=== PATIENT | female | born 1945 | race Caucasian/White ===

== ENCOUNTER 2020-04-17 10:18 | Outpatient (RCR) | payer MEDICARE, SELFPAY | END 2020-04-21 23:59 | disposition home or self-care (01) | LOC: SPT 10:18 | PROVIDERS: PCP Physician Assistant; Referring Provider Physician Assistant; Visit Provider Physician Assistant | DX: M54.2 Cervicalgia (principal) | CPT/HCPCS: 97161 ==

== ENCOUNTER 2020-04-22 06:00 | Outpatient (RCR) | payer MEDICARE, SELFPAY | END 2020-05-22 23:59 | disposition home or self-care (01) | LOC: SPT 06:00 | PROVIDERS: PCP Physician Assistant; Referring Provider Physician Assistant; Visit Provider Physician Assistant | DX: M54.2 Cervicalgia (principal) | CPT/HCPCS: 97110 ==

== ENCOUNTER → 2020-06-05 09:51 | Outpatient (BNVA) | payer MEDICARE, SELFPAY | PROVIDERS: PCP Physician Assistant; Visit Provider Licensed Practical Nurse | DX: M47.812 Spondylosis without myelopathy or radiculopathy, cervical region (principal); R42 Dizziness and giddiness; E53.8 Deficiency of other specified B group vitamins | CPT/HCPCS: 99213 ==

== ENCOUNTER 2020-07-27 09:22 | Outpatient (CLI) | payer MEDICARE, SELFPAY ==
[2020-07-27 09:51] VITALS: BMI 29.9
--- NOTE | 2020-07-27 09:57 | USCV_ITS ---
AdanstephanieClemencia rea Age: 74 Gender: F : 1945 Exam Date: 07/27/2020 09:50 Ordering Phys: Brittany Ovalles Technologist: Soto Evans [place] [facility] [place]: MURMUR BP: 125 / 80 HR: 67 Rhythm: Sinus Technical Quality: MEASUREMENTS (Male / Female) Normal Values 2D ECHO LV Diastolic Diameter PLAX 3.9 cm 4.2 - 5.9 / 3.9 - 5.3 cm LV Systolic Diameter PLAX 2.5 cm IVS Diastolic Thickness 1.6 cm 0.6 - 1.0 / 0.6 - 0.9 cm IVS Systolic Thickness 1.6 cm LVPW Diastolic Thickness 1.3 cm 0.6 - 1.0 / 0.6 - 0.9 cm LVPW Systolic Thickness 1.6 cm LVOT Diameter 2.3 cm LV Ejection Fraction 2D Teich 64.5 % LV Ejection Fraction MOD 2C 68.9 % LV Ejection Fraction 2C AL 70.1 % LA Diameter 5.1 cm LA Width 4.6 cm LA Height 5.5 cm RA Width 3.3 cm RA Height 4.0 cm Aorta at Sinotubular Diameter 2.5 cm M-MODE LV Diastolic Diameter MM 4.3 cm 4.2 - 5.9 / 3.9 - 5.3 cm LV Systolic Diameter MM 2.5 cm LV Ejection Fraction MM Teich 73.9 % IVS Diastolic Thickness MM 1.2 cm 0.6 - 1.0 / 0.6 - 0.9 cm IVS Systolic Thickness MM 2.0 cm LVPW Diastolic Thickness MM 1.6 cm 0.6 - 1.0 / 0.6 - 0.9 cm LVPW Systolic Thickness MM 2.2 cm RV Diastolic Diameter MM 1.3 cm Aortic Annulus Diameter 3.4 cm LA Ao Ratio MM 1.5 MV E Point Septal Separation 0.6 cm DOPPLER AV Peak Velocity 215.0 cm/s LVOT Peak Velocity 132.0 cm/s AV Area Cont Eq vti 3.0 cm squared AV Area Cont Eq pk 2.5 cm squared MV Area PHT 5.0 cm squared Mitral E to A Ratio 0.8 MV E' Velocity 34.5 cm/s Mitral E to MV E' Ratio 8.8 Mitral E to LV E' Lateral Ratio 6.7 Mitral E to LV E' Septal Ratio 13.0 TR Peak Velocity 212.7 cm/s TR Peak Gradient 18.1 mmHg TV Peak E Velocity 84.0 cm/s Right Atrial Pressure 3.0 mmHg Pulmonary Artery Systolic Pressu 21.1 mmHg PV Peak Velocity 130.0 cm/s FINDINGS Left Ventricle Normal left ventricular cavity size. Normal left ventricular systolic function. No regional wall motion abnormalities. Left ventricular ejection fraction is estimated at 65 %. Grade I/IV diastolic dysfunction (abnormal relaxation filling pattern), normal to mildly elevated filling pressures. Right Ventricle The right ventricle is normal in size and function. Right Atrium The right atrium is normal in size. Left Atrium Moderately increased left atrial size. Mitral Valve Severely thickened mitral valve. Severe mitral annular calcification. No mitral valve stenosis. Mild-moderate mitral valve regurgitation. Aortic Valve Structurally normal aortic valve without significant sclerosis or stenosis. There is no aortic regurgitation. Tricuspid Valve Mild tricuspid valve regurgitation. Pulmonic Valve Structurally normal pulmonic valve without significant stenosis. There is no pulmonic regurgitation. Pericardium Normal pericardium without effusion. Aorta Normal ascending aorta dimension. CONCLUSIONS 1-Normal left ventricular cavity size. Normal left ventricular systolic function. No regional wall motion abnormalities. Left ventricular ejection fraction is estimated at 65 %. Grade I/IV diastolic dysfunction (abnormal relaxation filling pattern), normal to mildly elevated filling pressures. 2-Severely thickened mitral valve. Severe mitral annular calcification. No mitral valve stenosis. Mild-moderate mitral valve regurgitation. 3-Structurally normal aortic valve without significant sclerosis or stenosis. There is no aortic regurgitation. 4-There is no pericardial effusion. 5-Pulmonary artery systolic pressure is within normal limits. 6-Right atrial pressure is around 5 mm of mercury. 7-No significant change since the prior echocardiogram study of 08/24/2019. Lourdes Ramachandran MD (Electronically Signed) Final Date: 27 July 2020 19:11 S
--- NOTE | 2020-07-27 10:04 | ECG_ITS ---
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 Interpretive Statements NAME OF STUDY: LEXISCAN SESTAMIBI STRESS TEST INDICATION: [Dyspnea on Exertion] Procedure: At the baseline, the blood pressure was 219/100 mmHg, heart rate of 65 bpm. The electrocardiogram showed normal sinus rhythm with normal axis with normal ST and T's. The Lexiscan was infused over a period of 20 seconds. A total of 0.4 mg of Lexiscan was infused. The stress phase was continued for a total of 5 minutes. Heart rate at the end of stress phase was 81 bpm, with blood pressure 188/93 mmHg. The EKG at the peak infusion revealed sinus rhythm with no significant ST T wave changes. Sestamibi was injected 20 seconds after the Lexiscan was infused. Blood pressure at the end of recovery phase was 189/93 mmHg, with a heart rate of 78 bpm. Conclusion: 1. Normal EKG response to Lexiscan infusion. 2. No Lexiscan induced chest pain or cardiac arrhythmia. 3. Baseline high blood pressure that subsequently decreased after Lexiscan infusion, and normal heart rate response. 4. Sestamibi/sestamibi perfusion scan pending; see separate report. Electronically Signed On 07-31-2020 9:53:29 BILINGUAL RESEARCH INTERVIEWER by Robin Torrez M.D. [id number]
--- NOTE | 2020-07-27 10:05 | NMCV_ITS ---
NM radha perf SPECT r/s* [id number] Clemencia Garrison Age: 74 Gender: F : 1945 Exam Date: 07/27/2020 10:35 Ordering Phys: Brittany Ovalles Technologist: JED Chance Exam Location: [facility] Indications: DYSPNEA ON EXERTION STRESS TEST Please see separate stress test report in [facility] for full findings IMAGE PROTOCOL Rest/Stress 1 Exercise Day Radiopharmaceutical Dose (mCi) Administration Site Administered by Rest: Tc-99m 10.7 IV JED Chance Sestamibi Stress:Tc-99m 33.0 IV Sestamibi Rest: 27-Jul-2020 60 Discovery 630 Stress: 27-Jul-2020 30 Discovery 630 0.4mg Lexiscan. Images obtained in supine and prone position. SPECT RESULTS Technical Quality: Excellent Raw Data Analysis: Normal Image Corrections: No attenuation or motion correction applied Summed Stress Score: 0 Summed Rest Score: 2 Summed Difference Score: 0 PERFUSION FINDINGS SPECT images demonstrate homogeneous tracer distribution throughout the myocardium. FUNCTIONAL RESULTS (calculated via Gated SPECT) Stress Image LV EF (%): 72 Stress EDV (mL):90 TID: 0.93 Stress ESV (mL):25 FUNCTIONAL FINDINGS: There is normal left ventricular systolic function. IMPRESSIONS Myocardial perfusion imaging is normal. LV systolic function is normal with EF of 72% Robin Torrez MD (Electronically Signed) Final Date: 27 July 2020 17:23 S
[2020-07-27] MEDS: regadenoson 0.4 Mg/5 ml Syringe IVP (11:20)
--- NOTE | 2020-07-27 11:20 | SUR.PREOP ---
Patient reports no pain or discomfort prior to the start of the procedure.
[2020-07-27 11:35] VITALS: BP 189/93; PULSE 73
== END 2020-07-27 09:23 | disposition home or self-care (01) ==
LOC: CDL 09:24
PROVIDERS: PCP Physician Assistant; Visit Provider Physician Assistant
DX: R06.00 Dyspnea, unspecified (principal); R01.1 Cardiac murmur, unspecified; I05.9 Rheumatic mitral valve disease, unspecified
CPT/HCPCS: 78452; 93017; 93306; A9500; J2785

== ENCOUNTER 2021-03-11 12:46 | Emergency (ER) | payer MEDICARE, MEDICAID, SELFPAY ==
[2021-03-11 13:15] VITALS: BP 151/81; PULSE 70; RESP 18; TEMP 36.8; O2SAT 97; BMI 30.7
--- NOTE | 2021-03-11 13:26 | XRR_ITS ---
PROCEDURE INFORMATION: Exam: XR Chest Exam date and time: 03/11/2021 1:26 PM Age: 75 years old Clinical indication: Pain; Chest pressure; Additional info: Cp TECHNIQUE: Imaging protocol: XR of the chest. Views: 1 view. COMPARISON: CR Chest 1 [place] [id number] 08/29/2019 2:36 PM FINDINGS: Lungs: No consolidative pulmonary infiltrates are noted. Pleural spaces: Unremarkable. No pleural effusion. No pneumothorax. Heart/Mediastinum: No cardiomegaly. Vasculature: Tortuous, atherosclerotic thoracic aorta. Bones/joints: Unremarkable. XR/XR chest 1V portable [id number] IMPRESSION: 1. No acute abnormality demonstrated. 2. There is no interval change from the prior examination.
--- NOTE | 2021-03-11 13:27 | ECG_ITS ---
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 Measurements Intervals [place] Rate: 69 P: 35 [place]: 171 QRS: -22 QRSD: 106 T: 15 QT: 405 QTc: 435 Interpretive Statements SINUS RHYTHM BORDERLINE LEFT AXIS DEVIATION [QRS AXIS < -20] Compared to ECG 08/29/2019 14:38:50 No significant changes Electronically Signed On 03-11-2021 19:10:41 CDT by Sabrina Mix M.D. [email or web address]/[email or web address]/[id number] f
[2021-03-11 14:36] VITALS: BP 211/102; PULSE 72; RESP 15; O2SAT 97
[2021-03-11 14:49] LABS: Basophils # 0.1 10^3/uL (0.0-0.1); Basophils % 0.8 %; Eosinophils # 0.2 10^3/uL (0.0-0.8); Eosinophils % 2.3 %; Hematocrit 43.4 % (37.0-47.0); Hemoglobin 14.4 g/dL (11.5-15.3); Lymphocytes # 1.9 10^3/uL (0.8-4.8); Lymphocytes % 20.6 %; Mean Corpuscular HGB Conc 33.2 g/dL (30.0-36.0); Mean Corpuscular Hemoglobin 30.8 pg (28.0-34.0); Mean Corpuscular Volume 92.9 fL (81-99); Mean Platelet Volume 11.8 fL (7.4-10.4); Monocytes # 0.6 10^3/uL (0.2-0.9); Monocytes % 6.4 %; Neutrophils # 6.36 10^3/uL (1.8-7.7); Neutrophils % 69.7 %; Nucleated Red Blood Cells % 0 %; Platelet Count 277 10^3/cmm (130-400); Red Blood Count 4.67 10^6/uL (4.1-5.3); Red Cell Distribution Width 14.5 % (12.1-15.1); White Blood Count 9.1 10^3/uL (4.0-10.0)
[2021-03-11 15:05] LABS: Troponin(5th) Baseline 12 ng/L (0-10)
[2021-03-11 15:14] LABS: Alanine Aminotransferase 13 U/L (0-33); Albumin Level 4.4 g/dL (3.5-5.2); Alkaline Phosphatase 73 IU/L (35-105); Anion Gap 11.6 (5-19); Aspartate Amino Transferase 16 U/L (0-32); Blood Urea Nitrogen 21 mg/dL (8-23); Calcium 8.9 mg/dL (8.5-10.5); Carbon Dioxide 26 mmol/L (22-29); Chloride 107 mmol/L (98-107); Creatinine Clr Calc Pharmacy 63.0012; Globulin 2.4 g/dL (1.3-4.6); Glucose 86 mg/dL (65-115); Lipase 26 U/L (13-60); NT Pro B Type Natriuretic Pept 326 pg/mL (0-450); Osmolality Calculated 292 mOsm/kg (285-295); Potassium 4.6 mmol/L (3.5-5.1); Sodium 140 mmol/L (136-145); Total Bilirubin 0.4 mg/dL (0.15-1.2); Total Protein 6.8 g/dL (6.6-8.7)
[2021-03-11 15:16] LABS: INR 1.05 (0.8-1.2)
--- NOTE | 2021-03-11 15:27 | ECG_ITS ---
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 Measurements Intervals [place] Rate: 66 P: 40 [place]: 185 QRS: -24 QRSD: 101 T: 24 QT: 415 QTc: 435 Interpretive Statements SINUS RHYTHM BORDERLINE LEFT AXIS DEVIATION [QRS AXIS < -20] INTERPRETATION BASED ON A DEFAULT AGE OF 40 YEARS Compared to ECG 08/29/2019 14:38:50 No significant changes Electronically Signed On 03-11-2021 19:25:08 CDT by Sabrina Mix M.D. [email or web address]/store/NU/[id number] f
--- NOTE | 2021-03-11 17:02 | ED_ITS ---
HPI - Chest Pain General: Chief Complaint: Chest Pain Stated Complaint: CHEST TIGHT DIZZY Time Seen by Provider: 03/11/21 13:26 Source: patient Mode of arrival: ambulatory Limitations: no limitations History of Present Illness: HPI narrative: This is a 75 year old female who presents to the ED with chest pain that she describes as tightness, radiating to her neck and her shoulders. Symptoms started yesterday and she says that the pain prevented her from sleeping, especially the neck pain. Because her symptoms persisted till today she is here to be evaluated. MD complaint: chest pain Onset (ago): day(s) (1) Timing of current episode: constant Prior episodes: No Onset: during rest Pain location: substernal Pain radiation: neck, left shoulder and right shoulder Severity: moderate Quality: tightness Relieving factors: nothing Exacerbating factors: nothing Associated symptoms: Deny abdominal pain, diaphoresis, dyspnea, fever(s), leg edema, nausea, palpitations, sense of impending doom, syncope or vomiting Treatment prior to arrival: aspirin Review of Systems General: Reports: 10 or more systems reviewed and unremarkable except in HPI and below Const: Denies: fever(s) or diaphoresis Card: Denies: palpitations or syncope Resp: Denies: dyspnea GI: Denies: abdominal pain, nausea or vomiting PFSH ED PFSH: Medical History B12 deficiency CAD (coronary artery disease) Cervical osteoarthritis Dizziness of unknown etiology Dyslipidemia Essential hypertension Fatigue History of stroke NSTEMI (non-ST elevated myocardial infarction) Obesity Unstable angina Surgical History History of cataract surgery History of tubal ligation 1980 Family History Father Cancer Mother Cancer Brother Cancer Sister Cancer Social History Smoking and tobacco status: never smoked Alcohol intake: current Alcohol type: wine Household members: family Marital status: / Current occupational status: retired History of recent travel: No Physical Exam Const: COMMON NORMALS: no acute distress, average body habitus, patient oriented x3, no limitations, healthy appearing, alert and well nourished HENMT: COMMON NORMALS: normocephalic, atraumatic and moist oral mucous membranes HEAD & SCALP: normocephalic and atraumatic Neck/C-Spine: COMMON NORMALS: full ROM, supple, no meningeal signs, no JVD and No carotid bruits Chest: COMMONS NORMALS: normal inspection of the chest and normal palpation of entire chest wall Resp: COMMON NORMALS: normal respiratory effort, No retractions, No use of accessory muscles, clear to auscultation bilaterally and percussion normal AUSCULTATION: clear to auscultation bilaterally PERCUSSION: percussion normal Cardio: COMMON NORMALS: no JVD, regular rate, regular rhythm, S1 normal heart sound present, S2 normal heart sound present, No gallops present (Cardio), No clicks present (Cardio), No murmurs present (Cardio), No rub (Cardio) and Peripheral pulses 2+ throughout RATE: regular rate RHYTHM: regular rhythm HEART SOUNDS: S1 normal heart sound present and S2 normal heart sound present PERIPHERAL PULSES: Peripheral pulses 2+ throughout GI: COMMON NORMALS: Normal to inspection, nondistended, normoactive bowel sounds present, Soft to palpation, non-tender, No hepatosplenomegaly present, no masses and no bruits PALPATION: Yes Soft to palpation and Yes No hepatosplenomegaly present Extremity: COMMON NORMALS: normal to inspection, full ROM, capillary refill normal, no calf tenderness and no pedal edema Neuro: COMMON NORMALS: patient oriented x3 SENSORIUM/ORIENTATION: Yes alert MENINGEAL SIGNS: Yes no meningeal signs Course Reevaluation(s): Reevaluation #1: Discussed her lab and imaging findings with her. Unremarkable. Chest pain is unlikely to be cardiac in origin. We will discharge her home with no new orders. She voiced understanding and is in agreement with the plan Time: 17:26 Vital Signs: Vital signs: Vital Signs Temperature 98.2 F 03/11/21 13:15 Pulse Rate 79 03/11/21 17:49 Respiratory Rate 15 03/11/21 17:49 Blood Pressure 211/102 03/11/21 14:36 Pulse Oximetry 99 03/11/21 17:49 MDM - Chest Pain MDM Narrative: Medical decision making narrative: 75-year-old female patient who presents to the emergency department with chest pain. [facility] Heart score is 5 given a 17% risk of a major adverse cardiac event within the next 6 weeks. She however had a stress test done about 7 months ago and it was normal. 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 Lab Data: Labs: Lab Results 03/11/21 03/11/21 03/11/21 Range/Units 14:30 14:30 14:30 WBC 9.1 (4.0-10.0) 10^3/ uL RBC 4.67 (4.1-5.3) 10^6/u L Hgb 14.4 (11.5-15.3) g/dL Hct 43.4 (37.0-47.0) % MCV 92.9 (81-99) fL MCH 30.8 (28.0-34.0) pg MCHC 33.2 (30.0-36.0) g/dL RDW 14.5 (12.1-15.1) % Plt Count 277 (130-400) 10^3/c mm MPV 11.8 H (7.4-10.4) fL Neut % (Auto) 69.7 % Lymph % (Auto) 20.6 % [place] % (Auto) 6.4 % Eos % (Auto) 2.3 % Baso % (Auto) 0.8 % Neut # (Auto) 6.36 (1.8-7.7) 10^3/u L Lymph # (Auto) 1.9 (0.8-4.8) 10^3/u L [place] # (Auto) 0.6 (0.2-0.9) 10^3/u L Eos # (Auto) 0.2 (0.0-0.8) 10^3/u L Baso # (Auto) 0.1 (0.0-0.1) 10^3/u L Nucleated RBC % (a uto) 0 % Nucleated RBCs # 0.0 /100WBC PT (12.1-14.9) SECO NDS INR (0.8-1.2) Sodium 140 (136-145) mmol/L Potassium 4.6 (3.5-5.1) mmol/L Chloride 107 (98-107) mmol/L Carbon Dioxide 26 (22-29) mmol/L Anion Gap 11.6 (5-19) BUN 21 (8-23) mg/dL Creatinine 0.8 (0.5-0.9) mg/dL GFR Calculation Not Reportable Glucose 86 (65-115) mg/dL Calculated Osmolal ity 292 (285-295) mOsm/k g Calcium 8.9 (8.5-10.5) mg/dL Total Bilirubin 0.4 (0.15-1.2) mg/dL AST 16 (0-32) U/L ALT 13 (0-33) U/L Alkaline Phosphata se 73 (35-105) IU/L Troponin T Baselin e 12 H (0-10) ng/L Troponin T 120 Min zeinab (0-10) ng/L Delta Troponin T (0-10) ABS# NT-Pro-B Natriuret Pep 326 (0-450) pg/mL Total Protein 6.8 (6.6-8.7) g/dL Albumin 4.4 (3.5-5.2) g/dL Globulin 2.4 (1.3-4.6) g/dL Lipase 26 (13-60) U/L 03/11/21 03/11/21 Range/Units 14:56 16:30 WBC (4.0-10.0) 10^3/ uL RBC (4.1-5.3) 10^6/u L Hgb (11.5-15.3) g/dL Hct (37.0-47.0) % MCV (81-99) fL MCH (28.0-34.0) pg MCHC (30.0-36.0) g/dL RDW (12.1-15.1) % Plt Count (130-400) 10^3/c mm MPV (7.4-10.4) fL Neut % (Auto) % Lymph % (Auto) % [place] % (Auto) % Eos % (Auto) % Baso % (Auto) % Neut # (Auto) (1.8-7.7) 10^3/u L Lymph # (Auto) (0.8-4.8) 10^3/u L [place] # (Auto) (0.2-0.9) 10^3/u L Eos # (Auto) (0.0-0.8) 10^3/u L Baso # (Auto) (0.0-0.1) 10^3/u L Nucleated RBC % (a uto) % Nucleated RBCs # /100WBC PT 14.00 (12.1-14.9) SECO NDS INR 1.05 (0.8-1.2) Sodium (136-145) mmol/L Potassium (3.5-5.1) mmol/L Chloride (98-107) mmol/L Carbon Dioxide (22-29) mmol/L Anion Gap (5-19) BUN (8-23) mg/dL Creatinine (0.5-0.9) mg/dL GFR Calculation Glucose (65-115) mg/dL Calculated Osmolal ity (285-295) mOsm/k g Calcium (8.5-10.5) mg/dL Total Bilirubin (0.15-1.2) mg/dL AST (0-32) U/L ALT (0-33) U/L Alkaline Phosphata se (35-105) IU/L Troponin T Baselin e (0-10) ng/L Troponin T 120 Min zeinab 10.96 H (0-10) ng/L Delta Troponin T -1.04 L (0-10) ABS# NT-Pro-B Natriuret Pep (0-450) pg/mL Total Protein (6.6-8.7) g/dL Albumin (3.5-5.2) g/dL Globulin (1.3-4.6) g/dL Lipase (13-60) U/L Imaging Data^: CXR: Attestation: I personally reviewed and interpreted this imaging study as follows: Radiologist's impression: [address] [address]ZLqs ReportSigned Patient: Clemencia Garrison #: [id number]: [id number]#:[id number]/Sex: 75 / FADM Date: 03/11/21Loc: E RRoom/Bed:Attending Dr: Ordering Provider/Ordering MD: Rosamaria Merritt MD, [facility] [place] Date of Service: 03/11/21 Procedure(s): XR chest 1V portable [id number] Accession Number(s): [id number] Report Number: [id number] PROCEDURE INFORMATION: Exam: XR Chest Exam date and time: 03/11/2021 1:26 PM Age: 75 years old Clinical indication: Pain; Chest pressure; Additional info: Cp TECHNIQUE: Imaging protocol: XR of the chest. Views: 1 view. COMPARISON: CR Chest 1 [place] [id number] 08/29/2019 2:36 PM FINDINGS: Lungs: No consolidative pulmonary infiltrates are noted. Pleural spaces: Unremarkable. No pleural effusion. No pneumothorax. Heart/Mediastinum: No cardiomegaly. Vasculature: Tortuous, atherosclerotic thoracic aorta. Bones/joints: Unremarkable. XR/XR chest 1V portable [id number] IMPRESSION: 1. No acute abnormality demonstrated. 2. There is no interval change from the prior examination. Dictated By:Sami Rooney MDSigned By:Sami Rooney MDSigned Date/Time: 1614DD/ 1613 EKG Data^: EKG 1: Attestation: I personally reviewed and interpreted this EKG as follows: EKG interpretation date: 03/11/21 EKG interpretation time: 13:42 Prior EKG tracings: not available for review Interpretation: Sinus rhythm. Heart rate 69 bpm. Left axis deviation. No ST changes. EKG 2: Attestation: I personally reviewed and interpreted this EKG as follows: EKG interpretation date: 03/11/21 EKG interpretation time: 15:57 Prior EKG tracings: available for review Interpretation: Sinus rhythm. Heart rate 66 bpm. Left axis deviation. No ST changes. No significant change from earlier Discharge Plan Discharge Patient Disposition: Home Clinical Impression: Chest pain Qualifiers: Chest pain type: unspecified Qualified Code(s): R07.9 - Chest pain, unspecified Condition: Stable Prescriptions: Continued cyanocobalamin (vitamin B-12) 1,000 mcg capsule 1,000 mcg PO DAILY RF: 0 aspirin [Adult Aspirin Regimen] 81 mg tablet,delayed release (DR/EC) 81 mg PO DAILY Qty: 90 RF: 3 atorvastatin 40 mg tablet 20 mg PO .at bedtime Qty: 90 RF: 3 clopidogrel 75 mg tablet 75 mg PO DAILY Qty: 90 RF: 3 lisinopril 20 mg tablet 20 mg PO BID Qty: 180 RF: 3 metoprolol tartrate 25 mg tablet 25 mg PO BID Qty: 180 RF: 3 isosorbide mononitrate 20 mg tablet 20 mg PO DAILY Qty: 90 RF: 3 Discharge Orders: Discharge ED (Routine); Ordered 03/11/21 Ordered By: Rosamaria Merritt Referrals: Brittany Ovalles PA [Primary Care Provider] - 1-3 days Discharge Diet: Usual diet Discharge Activity: Increase activity as tolerated Patient Instructions: Chest Pain (ED) Activity Restrictions/Additional Instructions: Return for any new or worsening symptoms. Follow-up with your primary care provider within 3 days. Continue home medications. Coding Level of Care Code ED Residence Manager for Chg Fwd Exam Comprehensive
[2021-03-11 17:15] LABS: Troponin 5 2HR 10.96 ng/L (0-10)
[2021-03-11 17:19] LABS: Troponin 5 2HR Delta -1.04 ABS# (0-10)
[2021-03-11 17:49] VITALS: PULSE 79; RESP 15; O2SAT 99
== END 2021-03-11 17:53 | disposition home or self-care (01) ==
PROVIDERS: Emergency Provider Family Medicine; PCP Physician Assistant
DX: R07.9 Chest pain, unspecified (principal); Z79.02 Long term (current) use of antithrombotics/antiplatelets; Z79.82 Long term (current) use of aspirin; I25.10 Atherosclerotic heart disease of native coronary artery without angina pectoris; E78.5 Hyperlipidemia, unspecified; I10 Essential (primary) hypertension; Z86.73 Personal history of transient ischemic attack (TIA), and cerebral infarction without residual deficits; I25.2 Old myocardial infarction
CPT/HCPCS: 36415; 71045; 80053; 83690; 83880; 84484; 85025; 85610; 93005; 99283

== ENCOUNTER 2021-05-07 11:57 | Outpatient (CLI) | payer MEDICARE, MEDICAID, SELFPAY ==
[2021-05-07 12:05] VITALS: BP 139/86; BP 165/94; PULSE 61; PULSE 64; RESP 17; TEMP 36.8; TEMP 37.1; O2SAT 96; O2SAT 99; BMI 29.8
[2021-05-07 12:30] VITALS: BP 152/83; PULSE 50; RESP 17; O2SAT 99
[2021-05-07 13:31] VITALS: BP 165/94; PULSE 64; RESP 17; TEMP 36.8; O2SAT 99
== END 2021-05-07 11:58 | disposition home or self-care (01) ==
PROVIDERS: PCP Physician Assistant; Visit Provider Nurse Practitioner
DX: U07.1 COVID-19 (principal)
CPT/HCPCS: 96365

== ENCOUNTER 2021-06-07 11:14 | Outpatient (CLI) | payer MEDICARE, MEDICAID, SELFPAY ==
--- NOTE | 2021-06-07 | CT_ITS ---
WS: [id number] CT ABDOMEN PELVIS TECHNIQUE: Contrast-enhanced CT of the abdomen and pelvis with coronal and sagittal reformatted image s. CLINICAL INFORMATION: LLQ ABD PAIN COMPARISON: CT 1 17,017 DLP: 1122.[address] scans at [facility] use at least one of these dose optimization techniques: automated e xposure control; mA and/or kV adjustment per patient size (includes targeted exams where dose is matc hed to clinical indication); or iterative reconstruction. FINDINGS: Mild diffuse fatty infiltration of the liver. Multiple incidental hepatic cyst are unchanged. Stable renal cysts largest right lower pole unchanged. Lung bases are well aerated. Splenic granulomas. Norm al GE junction. Adrenal glands are normal. No hydronephrosis in either kidney. No abdominal lymphaden opathy. Aortic calcification. Normal caliber abdominal aorta. Normal sigmoid colon. Previously described colitis in the right ascending colon has resolved. No kelly dence of high-grade small or large bowel obstruction. No pelvic or inguinal lymphadenopathy. Mild dis c space narrowing L2-L3, L3-L4, L4-L5 with vacuum disc phenomenon. Lumbar scoliosis convex right. Endometrial thickening measuring 11 mm abnormal for a patient this age. Recommend further evaluation with hysteroscopy to assess for neoplasia. CT/CT abdomen pelvis w con* [id number] IMPRESSION: 1. Mild diffuse fatty infiltration of the liver. 2. Stable hepatic and renal cysts. 3. Previously described colitis has resolved. 4. Endometrial thickening measuring 11 mm abnormal for a patient this age. Rec ommend further evaluation with hysteroscopy to assess for neoplasia. 5. No evidence of small or large bowel obstruction. 6. Normal sigmoid colon. 7. No hydronephrosis in either kidney. 8. No other significant findings.
[2021-06-07] MEDS: iohexol 300 mg/mL 100 mL Btl IV (12:55)
[2021-06-07] MEDS: iohexol 300 mg/mL 50 mL Btl PO (12:56)
== END 2021-06-07 11:15 | disposition home or self-care (01) ==
PROVIDERS: PCP Physician Assistant; Visit Provider Physician Assistant
DX: R10.32 Left lower quadrant pain (principal); K76.0 Fatty (change of) liver, not elsewhere classified; K76.89 Other specified diseases of liver; Q61.02 Congenital multiple renal cysts; R93.89 Abnormal findings on diagnostic imaging of other specified body structures
CPT/HCPCS: 74177; Q9967

== ENCOUNTER 2021-07-27 18:57 | Emergency (ER) | payer MEDICARE, MEDICAID, SELFPAY ==
[2021-07-27 19:32] VITALS: BP 182/100; PULSE 91; RESP 20; TEMP 37; O2SAT 96; BMI 29.9
--- NOTE | 2021-07-27 19:51 | XRR_ITS ---
PROCEDURE INFORMATION: Exam: XR Chest Exam date and time: 07/27/2021 7:51 PM Age: 75 years old Clinical indication: Cough; Patient HX: Body aches all over; Additional info: Cough fever TECHNIQUE: Imaging protocol: XR of the chest. Views: 2 views. COMPARISON: CR XR chest 1V portable [id number] 03/11/2021 1:43 PM FINDINGS: Lungs: Unchanged hyperinflation with mild interstitial prominence/fibrosis. No consolidation. The pulmonary vascularity is within normal limits. Pleural spaces: Unremarkable. No pleural effusion. No pneumothorax. Heart/Mediastinum: Unremarkable. No cardiomegaly. Unchanged ectasia of the thoracic aorta. Bones/joints: Unremarkable. XR/XR chest 2V* [id number] IMPRESSION: No acute findings. Radiation Dose CTDIVOL = (mGy): DLP = (mGy-cm)
--- NOTE | 2021-07-27 21:37 | W.ED.URI ---
HPI - URI/Sore Throat General: Chief Complaint: Upper Respiratory Infection Stated Complaint: Headache\Coughing\ All over Ache Time Seen by Provider: 07/27/21 21:19 History of Present Illness: HPI Narrative: Patient comes in today with a 2-day history of headache, fever, and cough. Patient reports that her son was ill last week with similar illness. Patient appears mildly unwell but not toxic. Patient appears in no acute distress. Associated symptoms: Reports fever(s) and headache(s) Review of Systems General: Reports: 10 or more systems reviewed and unremarkable except in HPI and below Const: Reports: fever(s) Resp: Reports: non-productive cough Neuro: Reports: headache(s) PFSH ED PFSH: Medical History (Updated 07/27/21 @ 22:58 by WOLFGANG Hussein) B12 deficiency CAD (coronary artery disease) Cervical osteoarthritis Dizziness of unknown etiology Dyslipidemia Essential hypertension Fatigue History of stroke NSTEMI (non-ST elevated myocardial infarction) Obesity Unstable angina Surgical History History of cataract surgery History of tubal ligation 1979 Family History (Updated 07/16/21 @ 10:17 by Adele Melara RN) Father No problems noted. Mother No problems noted. Brother Diabetes Hypertension Colon cancer late 40's-early 50's Sister Colon cancer, Onset Age: 60 Denies family history of Ovarian cancer Clotting disorder Heart disease Hyperlipidemia Breast cancer Anesthesia complication Bleeding disorder Uterine cancer Thyroid condition Stroke Social History (Updated 07/16/21 @ 10:18 by Adele Melara RN) Smoking and tobacco status: never smoked Alcohol intake: current Alcohol intake frequency: holidays/special occasions only Alcohol type: hard liquor Physical Exam Const: COMMON NORMALS: no acute distress and patient oriented x3 GENERAL APPEARANCE: cooperative HENMT: COMMON NORMALS: normocephalic and Normal external nose present HEAD & SCALP: normal to inspection and normocephalic NOSE: Normal external nose present TYMPANIC MEMBRANE: TM abnormal TM laterality: bilateral bulging MOUTH: Normal oral and palatal mucosa present THROAT: posterior oropharynx abnormal erythema Eye: GENERAL EYE: appearance normal, both eyes and all related structures Neck/C-Spine: COMMON NORMALS: full ROM Lymph: LYMPHATIC: no lymphadenopathy noted Chest: COMMONS NORMALS: normal inspection of the chest Resp: COMMON NORMALS: normal respiratory effort EFFORT & INSPECTION: Yes able to speak in complete sentences AUSCULTATION: rhonchi Cardio: COMMON NORMALS: regular rate and regular rhythm RATE: regular rate RHYTHM: regular rhythm GI: COMMON NORMALS: non-tender : COMMON NORMALS: Yes no CVA tenderness BLADDER/KIDNEY EXAM: Yes no CVA tenderness Back/Pelvis: COMMON NORMALS: no CVA tenderness and thoracic and lumbar spine normal to inspection Extremity: COMMON NORMALS: normal to inspection Neuro: COMMON NORMALS: patient oriented x3 and moves all extremities Psych: COMMON NORMALS: mental status grossly normal and cooperative Skin: COMMON NORMALS: no rashes or lesions noted GENERAL SKIN EXAM: no rashes or lesions noted Course Vital Signs: Vital signs: Vital Signs Temperature 98.6 F 07/27/21 19:32 Pulse Rate 91 07/27/21 19:32 Respiratory Rate 18 07/27/21 23:30 Blood Pressure 166/93 07/27/21 23:08 Pulse Oximetry 97 07/27/21 23:08 MDM - URI/Sore Throat MDM Narrative: Medical decision making narrative: Patient came in today with complaints of headache, nasal congestion, and cough. Patient also has been having a fever of 101 1-102 at home. On exam lungs have rhonchi and end, patient has sinus tenderness, bilateral tympanic membranes are bulging. Patient moves neck without difficulty. Patient appears mildly unwell but not toxic. Patient appears no serious illness. Differential diagnosis includes rhinosinusitis, bronchitis, pneumonia, COVID-19. Chest x-ray was normal. COVID-19 test was negative. Patient's blood pressure was elevated with a systolic of 180, went ahead and gave her a hydrocodone and a clonidine to help with her pain and discomfort. Patient had resolution of headache and improvement of overall symptoms. We will continue the patient on doxycycline 100 mg twice a day for 10 days for acute bronchitis. Patient was also given a dose of dexamethasone in the ER. Patient reported understanding of care plan. I did write for 3 days worth of hydrocodone for breakthrough pain regarding her sinus pressure and discomfort. Review of the record indicated no current prescription of narcotics. Lab Data: Labs: Lab Results 07/27/21 21:45 SARS-CoV-2 Ag (Rap id) Negative (Negative) Discharge Plan Discharge Patient Disposition: Home Clinical Impression: Bronchitis Condition: Stable Prescriptions: New doxycycline monohydrate 100 mg capsule 100 mg PO BID 14 Days Qty: 28 RF: 0 hydrocodone-acetaminophen 5-325 mg tablet 1 tab PO Q8H PRN (Reason: pain (scale score 7-10)) Qty: 6 RF: 0 No Action metoprolol tartrate 25 mg tablet 50 mg PO BID RF: 0 losartan 100 mg tablet 100 mg PO DAILY RF: 0 Zyrtec 10 mg capsule 10 mg PO DAILY PRNRF: 0 fluticasone propionate 50 mcg/actuation spray,suspension 2 spray intranasal DAILY PRNRF: 0 meclizine 25 mg tablet 25 mg PO BID RF: 0 aspirin [Adult Aspirin Regimen] 81 mg tablet,delayed release (DR/EC) 81 mg PO DAILY Qty: 90 RF: 3 Discharge Orders: Discharge ED (Routine); Ordered 07/27/21 Ordered By: Ezra Spaulding Referrals: Brittany Ovalles PA [Primary Care Provider] - Discharge Diet: Usual diet Discharge Activity: Increase activity as tolerated Patient Instructions: Acute Bronchitis (ED), Opioid Safety Activity Restrictions/Additional Instructions: Drink plenty of fluids. Use acetaminophen or ibuprofen to help with pain. Take doxycycline twice a day for the next 7 days. Follow-up with primary care as needed. Return to the emergency room for worsening symptoms such as increased shortness of breath, uncontrolled fever, or new concerns. Coding Level of Care Code ED Earth Moving Technician for Sergio Fwálvaro Exam Comprehensive
[2021-07-27 22:08] VITALS: BP 180/86; RESP 18; O2SAT 96
[2021-07-27 22:38] VITALS: BP 167/104; RESP 18; O2SAT 96
[2021-07-27 22:46] LABS: SARS Covid-2 Antigen Negative (Negative)
[2021-07-27 22:51] VITALS: BP 186/73
[2021-07-27] MEDS: dexamethasone 10 mg/mL INJ IM (22:51)
[2021-07-27] MEDS: cloNIDine 0.1 mg Tablet PO (22:51)
[2021-07-27] MEDS: HYDROcodone-acetaminophen 5-325 mg Tablet 1 TAB PO (22:51)
[2021-07-27] MEDS: doxycycline 100 mg Tablet PO (22:51)
[2021-07-27 23:08] VITALS: BP 166/93; RESP 18; O2SAT 97
[2021-07-27 23:30] VITALS: RESP 18
== END 2021-07-27 23:15 | disposition home or self-care (01) ==
PROVIDERS: Emergency Provider Nurse Practitioner Family; PCP Physician Assistant
DX: J40 Bronchitis, not specified as acute or chronic (principal); Z79.82 Long term (current) use of aspirin; I25.10 Atherosclerotic heart disease of native coronary artery without angina pectoris; E78.5 Hyperlipidemia, unspecified; I10 Essential (primary) hypertension; Z86.73 Personal history of transient ischemic attack (TIA), and cerebral infarction without residual deficits; I25.2 Old myocardial infarction; Z20.822 Contact with and (suspected) exposure to COVID-19
CPT/HCPCS: 71046; 87426; 96372; 99283; J1100

== ENCOUNTER → 2021-08-24 10:54 | Outpatient (BNVA) | payer MEDICARE, SELFPAY | PROVIDERS: PCP Physician Assistant; Visit Provider Obstetrics & Gynecology | DX: Z20.822 Contact with and (suspected) exposure to COVID-19 (principal); A63.0 Anogenital (venereal) warts; R93.89 Abnormal findings on diagnostic imaging of other specified body structures | CPT/HCPCS: 87635 ==

== ENCOUNTER 2021-08-29 07:17 | Day surgery (SDC) | payer MEDICARE, SELFPAY ==
[2021-08-27 11:15] VITALS: BMI 32.8
--- NOTE | 2021-08-27 11:21 | ECG_ITS ---
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 Measurements Intervals [place] Rate: 75 P: 28 CO: 172 QRS: -8 QRSD: 94 T: 23 QT: 370 QTc: 414 Interpretive Statements SINUS RHYTHM Compared to ECG 03/11/2021 15:57:15 No significant changes Electronically Signed On 08-27-2021 17:02:29 CASTING OPERATOR HELPER by Robin Torrez M.D. [email or web address] river county hospitalCT Atlanticblanchard valley health systemCompuCom Systems Holding/store/[id number]
--- NOTE | 2021-08-27 11:46 | ANES.PREANE2 ---
Pre-Anesthetic Assessment Pre-Anesthetic Assessment: Height/Weight: Height 1.6 m Weight 83.915 kg Preop Diagnosis: thickened endometrium Proposed Procedure: Operation Date: 08/29/21 12:25 Proposed Procedures p Hysteroscopy 20319 43497 R93.89 A63.0(Not Applicable) - Quique Isaacs MD s Dilation And Curettage (D&C)(Not Applicable) - Quique Isaacs MD Familial anesthetic complications: none Social: Social History: No alcohol and No tobacco Exam: Pre-Anes Outpt Exam: alert, oriented x 3, clear to auscultation bilaterally and regular rate & rhythm Airway: Cervical ROM: WNL MP: 2 Dentition: Full Pulmonary: Pulmonary: Sleep apnea CV/HEM: CV/HEM: HTN (3 years ago -no stents) and PR Neuropsych: Neuropsych: CVA (seen on imaging -no residual deficits ) Comments: dizziness Anesthetic Plan: ASA status: 2 Anesthesia: General Risk of > 500 ml blood loss (7ml/kg in children): No PFSH Anesthesia PFSH: Medical History B12 deficiency CAD (coronary artery disease) Cervical osteoarthritis Dizziness of unknown etiology Dyslipidemia Essential hypertension Fatigue History of stroke NSTEMI (non-ST elevated myocardial infarction) Obesity Thickened endometrium Unstable angina Vulvar warts Surgical History History of cataract surgery History of tubal ligation 1979 Family History Father No problems noted. Mother No problems noted. Brother Diabetes Hypertension Colon cancer late 40's-early 50's Sister Colon cancer, Onset Age: 60 Denies family history of Ovarian cancer Clotting disorder Heart disease Hyperlipidemia Breast cancer Anesthesia complication Bleeding disorder Uterine cancer Thyroid condition Stroke Social History (Updated 08/27/21 @ 08:21 by Adele Melara RN) Smoking and tobacco status: never smoked Alcohol intake: current Alcohol intake frequency: holidays/special occasions only Alcohol type: hard liquor Substance/Drug Use: never Data Anesthesia Cardiac Studies: No Data to Display
[2021-08-27 12:13] LABS: Add Urine Microscopic? YES; Bilirubin Urine Neg (Negative); Blood Urine Neg (Negative); Glucose Urine UA Norm (Normal); Ketones Urine Negative (Negative); Leukocyte Esterase Urine Negative (Negative); Nitrate Urine Negative (Negative); Protein Urine Neg (Negative); Urine Appearance Clear (CLEAR); Urine Color Yellow (Yellow); Urobilinogen Urine Norm (Negative); pH Urine 5 (5-7)
[2021-08-27 12:14] LABS: Add Urine Culture? No; Bacteria Urine TRACE /hpf; WBC Urine 0-4 /hpf (0-5)
[2021-08-27 13:07] LABS: Basophils # 0.1 10^3/uL (0.0-0.1); Basophils % 0.7 %; Eosinophils # 0.3 10^3/uL (0.0-0.8); Eosinophils % 3.8 %; Hemoglobin 13.8 g/dL (11.5-15.3); Lymphocytes # 1.9 10^3/uL (0.8-4.8); Lymphocytes % 21.2 %; Mean Corpuscular HGB Conc 32.1 g/dL (30.0-36.0); Mean Corpuscular Hemoglobin 30.4 pg (28.0-34.0); Mean Corpuscular Volume 94.7 fl (81-99); Mean Platelet Volume 12.7 fL (7.4-10.4); Monocytes # 0.6 10^3/uL (0.2-0.9); Monocytes % 6.7 %; Neutrophils # 5.93 10^3/uL (1.8-7.7); Neutrophils % 67.4 %; Nucleated Red Blood Cells % 0 %; Platelet Count 286 10^3/cmm (130-400); Red Blood Count 4.54 10^6/uL (4.1-5.3); Red Cell Distribution Width 14.1 % (12.1-15.1); White Blood Count 8.8 10^3/uL (4.0-10.0)
[2021-08-27 13:35] LABS: Alanine Aminotransferase 12 U/L (0-33); Albumin Level 4.1 g/dL (3.5-5.2); Alkaline Phosphatase 74 IU/L (35-105); Anion Gap 17.1 (5-19); Aspartate Amino Transferase 17 U/L (0-32); Blood Urea Nitrogen 17 mg/dL (8-23); Calcium 8.7 mg/dL (8.5-10.5); Carbon Dioxide 21 mmol/L (22-29); Chloride 106 mmol/L (98-107); Globulin 2.9 g/dL (1.3-4.6); Glucose 88 mg/dL (65-115); Osmolality Calculated 291 mOsm/kg (285-295); Potassium 4.1 mmol/L (3.5-5.1); Sodium 140 mmol/L (136-145); Total Bilirubin 0.3 mg/dL (0.15-1.2)
[2021-08-29] MEDS: sodium chloride 0.9% 500 ML 999 ML IV (07:30)
[2021-08-29] MEDS: sodium chloride 0.9% 1,000 ML 30 ML IV (07:35)
[2021-08-29 07:43] VITALS: BP 180/79; PULSE 74; RESP 18; TEMP 36.9; O2SAT 99
[2021-08-29] MEDS: sodium chloride 0.9% 500 ML IV (07:55)
[2021-08-29] MEDS: scopolamine 1.5 Patch 1 PATCH TRANSDERMA (07:58)
--- NOTE | 2021-08-29 08:27 | W.PM.OPSUD ---
Surgery/Procedure H&P Update DATE OF PROCEDURE: August 29, 2021 DATE H&P PERFORMED: 08/27/21 H&P UPDATE INFORMATION: I have reviewed H&P completed within last 30 days, I have examined patient prior to procedure and No changes to prior documentation PREOP DIAGNOSIS: Thickened endometrium, vulvar warts PLANNED PROCEDURE: Operation Date: 08/29/21 08:40 Proposed Procedures p Hysteroscopy 07511 [id number] R93.89 A63.0(Not Applicable) - Quique Isaacs MD s Dilation And Curettage (D&C)(Not Applicable) - Quique Isaacs MD s Excision Vulvar Mass(Not Applicable) - Quique Isaacs MD
--- NOTE | 2021-08-29 08:41 | ANES.PAUD2 ---
Pre-Anesthetic Update Pre-Anesthetic Assessment: Date of Surgery/Procedure: 08/29/21 Preop Diagnosis: Thickened endometrium, vulvar warts Proposed Procedure: Operation Date: 08/29/21 08:40 Proposed Procedures p Hysteroscopy 77029 [id number] R93.89 A63.0(Not Applicable) - Quique Isaacs MD s Dilation And Curettage (D&C)(Not Applicable) - MD edward Alvarado Excision Vulvar Mass(Not Applicable) - Quique Isaacs MD Last Intake: Intake Last Liquid Date 08/28/21 Last Liquid Time 18:00 Last Solid Date 08/28/21 Last Solid Time 18:00 Labs Last 48hrs: Laboratory Results - last 48 hr 08/27/21 08/27/21 08/27/21 11:28 11:54 11:54 WBC 8.8 RBC 4.54 Hgb 13.8 Hct 43.0 MCV 94.7 MCH 30.4 MCHC 32.1 RDW 14.1 Plt Count 286 MPV 12.7 H Neut % (Auto) 67.4 Lymph % (Auto) 21.2 [place] % (Auto) 6.7 Eos % (Auto) 3.8 Baso % (Auto) 0.7 Neut # (Auto) 5.93 Lymph # (Auto) 1.9 [place] # (Auto) 0.6 Eos # (Auto) 0.3 Baso # (Auto) 0.1 Nucleated RBC % (a uto) 0 Nucleated RBCs # 0.0 Sodium 140 Potassium 4.1 Chloride 106 Carbon Dioxide 21 L Anion Gap 17.1 BUN 17 Creatinine 0.8 GFR Calculation Not Reportable Glucose 88 Calculated Osmolal ity 291 Calcium 8.7 Total Bilirubin 0.3 AST 17 ALT 12 Alkaline Phosphata se 74 Total Protein 7.0 Albumin 4.1 Globulin 2.9 Urine Color Yellow Urine Appearance Clear Urine pH 5 Ur Specific Gravit y 1.020 Urine Protein Neg Urine Glucose (UA) Norm Urine Ketones Negative Urine Blood Neg Urine Nitrate Negative Urine Bilirubin Neg Urine Urobilinogen Norm Ur Leukocyte Kasey ase Negative Urine RBC None Urine WBC 0-4 H Ur Squamous Epith Cells 5-10 H Amorphous Sediment Not Reportable Urine Bacteria Trace Blood Type Rho(D) Type Antibody Screen 08/27/21 11:54 WBC RBC Hgb Hct MCV MCH MCHC RDW Plt Count MPV Neut % (Auto) Lymph % (Auto) [place] % (Auto) Eos % (Auto) Baso % (Auto) Neut # (Auto) Lymph # (Auto) [place] # (Auto) Eos # (Auto) Baso # (Auto) Nucleated RBC % (a uto) Nucleated RBCs # Sodium Potassium Chloride Carbon Dioxide Anion Gap BUN Creatinine GFR Calculation Glucose Calculated Osmolal ity Calcium Total Bilirubin AST ALT Alkaline Phosphata se Total Protein Albumin Globulin Urine Color Urine Appearance Urine pH Ur Specific Gravit y Urine Protein Urine Glucose (UA) Urine Ketones Urine Blood Urine Nitrate Urine Bilirubin Urine Urobilinogen Ur Leukocyte Kasey ase Urine RBC Urine WBC Ur Squamous Epith Cells Amorphous Sediment Urine Bacteria Blood Type O Positive Rho(D) Type Positive Antibody Screen Negative Vitals: Temperature 98.4 F 08/29/21 07:43 Temperature Source Temporal Artery S can 08/29/21 07:43 Pulse Rate 74 08/29/21 07:43 Respiratory Rate 18 08/29/21 07:43 Blood Pressure 180/79 08/29/21 07:43 Blood Pressure Hilaria n 112 08/29/21 07:43 Pulse Oximetry 99 08/29/21 07:43 Oxygen Delivery Me thod 08/29/21 07:44 Cardiac Studies: No Data to Display
[2021-08-29 09:42] VITALS: BP 150/83; PULSE 102; RESP 16; TEMP 36.3; O2SAT 96
--- NOTE | 2021-08-29 09:42 | PM.OP ---
Operative Report Date of procedure: August 29, 2021 Pre-op Diagnosis: Thickened endometrium, vulvar warts Post-op diagnosis: same Procedure Done: Hysteroscopic polypectomy via MyoSure Excision of left vulvar wart. Specimens removed/disposition: Endometrial curettings and polyp. Left vulvar wart Surgeon: Quique Isaacs MD Anesthesia: General Estimated blood loss (mL): 5 IV fluids (mL): 200 Condition: stable Disposition: PACU Brief History: Mrs. Garrison 75 y/o with thicken endometrium and left vulvar wart Procedure: After informed consent, the risks included but were not limited to bleeding, infection, injury to internal organs. The patient was counseled on a possible laparotomy and on the potential need for hysterectomy. The patient expressed understanding of the risks involved, all questions were answered, and the patient consented to the procedure. The patient was taken to the operating room where general anesthesia was administered. She was placed in the dorsal lithotomy position and prepped and draped in sterile fashion. A time out procedure was performed. The patient was examined under anesthesia and found to have a normal uterus with normal adnexa. A sterile weight speculum was placed in the vagina. The uterus was then gently sounded to 7 cm, and the cervix was dilated. The 0 degrees MyoSure hysteroscope was advanced gently to the uterine fundus while visualizing the monitor. Survey of the uterine cavity showed: Endometrial polyp on the posterior wall, the fundus shows atrophic endometrium; left ostium was visualized, and lateral wall with atrophic endometrium; right ostium visualized, and lateral wall with atrophic endometrium; anterior and posterior blakely are with atrophic endometrium; endocervical canal is normal. The MyoSure device was advanced and the direct visualization the polyp was morcellated without complication. At the end of morcellation the fluid deficit was 460 mL and was estimated at approximately 200 mL were on the floor. There was minimal bleeding noted and the tenaculum removed with goad hemostasis noted. Then proceeded to excise the left vulval wart of approximately 3 cm in size. The area surrounding the skin lesion had been prepared and draped in the usual sterile manner. With the bovie and eliptical incison around wart and full thickness exision of the wart was performed in the usual manner with bovie. Hemostasis was assured. The skin was closed with 3-0 Vicryl in a subcuticular fashion. The patient tolerated the procedure well. The patient was taken to the recovery area in stable condition.
[2021-08-29 09:50] VITALS: BP 131/81; PULSE 102; RESP 18; TEMP 36.4; O2SAT 93
[2021-08-29 10:00] VITALS: BP 167/92; PULSE 98; RESP 18; TEMP 36.6; O2SAT 100
[2021-08-29 10:10] VITALS: BP 148/94; PULSE 97; RESP 18; TEMP 36.8; O2SAT 98
--- NOTE | 2021-08-29 13:43 | ANE.PACU2 ---
Inpatient post-anesthesia follow up: Airway intact: Yes Vital signs: Temperature 98.2 F Pulse Rate 97 Respiratory Rate 18 Blood Pressure 148/94 Pulse Oximetry 98 Oxygen Delivery Me thod Room Air Oxygen Flow Rate Fraction of Inspir ed Oxygen Hydration adequate: Yes Nausea and vomiting: No Pain level: 2 Mental status: Baseline
== END 2021-08-29 10:39 | disposition home or self-care (01) ==
PROVIDERS: PCP Physician Assistant; Visit Provider Obstetrics & Gynecology
PROC: (CPT 58120; 2021-08-29 08:40)
PROC: (CPT 58558; 2021-08-29 08:40)
PROC: 0UDB8ZZ Extraction of Endometrium, Via Natural or Artificial Opening Endoscopic (ICD-10-PCS; CPT 58558; 2021-08-29 08:40)
DX: A63.0 Anogenital (venereal) warts (principal); R93.89 Abnormal findings on diagnostic imaging of other specified body structures; I10 Essential (primary) hypertension; G47.33 Obstructive sleep apnea (adult) (pediatric); I25.10 Atherosclerotic heart disease of native coronary artery without angina pectoris; I25.2 Old myocardial infarction; E66.9 Obesity, unspecified; Z68.32 Body mass index [BMI] 32.0-32.9, adult; Z86.73 Personal history of transient ischemic attack (TIA), and cerebral infarction without residual deficits; Z79.82 Long term (current) use of aspirin
CPT/HCPCS: 58558; 80053; 81001; 85025; 86850; 86900; 88305; 93005; J0690; J2405; J2704; J3010; J7030; J7040

== ENCOUNTER 2021-12-03 11:31 | Observation (INO) | payer MEDICARE, SELFPAY ==
[2021-12-03] VITALS (11 sets, daily range): BP systolic 136–196; BP diastolic 78–96; PULSE 61–98; RESP 18–19; TEMP 36.6–36.7; O2SAT 96–100; BMI 30.7; BMI 31.7
--- NOTE | 2021-12-03 12:09 | CT_ITS ---
WS: [id number] CT head wo con* [id number] REASON FOR EXAM: ams IV CONTRAST ADMINISTERED: Noncontrast. TOTAL EXAM DLP: 814.[address] scans at [facility] use at least one of these dose optimization techniques: automat ed exposure control; mA and/or kV adjustment per patient size (includes targeted exams where dose is matched to clinical indication); or iterative reconstruction. FINDINGS: The examination is unchanged compared to 08/29/2019. There is no midline shift or other significant mass effect. No findings of intracranial hemorrhage and no extra-axial fluid collection. Small focus of hypodensity in the left thalamus compatible with old lacunar infarct. CSF spaces are normal volume and configuration. Prominent distal right vertebral artery and proximal basilar artery. Focal dense calcification involv ing the distal left vertebral artery. CT/CT head wo con* [id number] IMPRESSION: No acute abnormality.
--- NOTE | 2021-12-03 12:09 | ECG_ITS ---
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 Measurements Intervals Bulger Rate: 66 P: 33 CT: 201 QRS: -5 QRSD: 138 T: 7 QT: 422 QTc: 442 Interpretive Statements SINUS RHYTHM RIGHT BUNDLE BRANCH BLOCK [120+ ms QRS DURATION, UPRIGHT V1, 40+ ms S IN I/aVL/V4/V5/V6] Compared to ECG 12/03/2021 11:14:32 No significant changes Electronically Signed On 12-03-2021 21:03:10 CDT by Robin Torrez M.D. [id number]
--- NOTE | 2021-12-03 12:09 | CT_ITS ---
WS: [id number] CT angio headneck* [id number] REASON FOR EXAM: eval for dissection TECHNIQUE: Coronal and sagittal 2-D and MIP reformations. IV CONTRAST ADMINISTERED: 95 mL of Omnipaque 350. TOTAL EXAM DLP: 2123.[address] scans at [facility] use at least one of these dose optimization techniques: automat ed exposure control; mA and/or kV adjustment per patient size (includes targeted exams where dose is matched to clinical indication); or iterative reconstruction. FINDINGS: ARCH: Calcified plaque in the origin of the innominate artery without significant stenosis. Calcified plaque in the origin of the right subclavian artery with 40-50% stenosis. Calcified plaque in the origin of the right vertebral artery without significant stenosis. Origins of the common carotids and left vertebral arteries are unremarkable. Large dominant right jose tebral artery. CERVICAL: No significant stenosis in the common carotid arteries, origins of the internal carotid arteries, or distal cervical internal carotid arteries to the base of the skull. No significant stenosis in the cervical portions of the vertebral arteries. Intracranial: Calcified plaque without significant stenosis in the siphon portions of the internal carotid arteries . Internal carotid artery terminus is normal bilaterally. Mild stenosis in the origin of the right middle cerebral artery. No thrombus or aneurysm. The anterio r and left middle cerebral arteries demonstrate no stenosis, thrombus, or aneurysm. The left vertebral artery essentially ends in the left posterior inferior cerebellar artery. There is tortuosity and mild dilatation of the proximal basilar artery with a maximum diameter of 4.5 mm. Mild stenosis in the origin of the right posterior cerebral artery. No aneurysm or thrombus. The left posterior cerebral artery fills from the left posterior communicating artery. There is mild to moderate stenosis in the origin. Examination is unchanged compared to 08/23/2019. CT/CT angio headneck* [id number] IMPRESSION: No significant arterial restriction. 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 Mild stenosis in the origin of the right middle cerebral artery. Dilatation and tortuosity of the proximal basilar artery as above. Mild stenosis in the origin of the right posterior and left posterior cerebral arteries. No aneurysm or thrombus identified. No findings of arterial dissection identified. No change compared to 08/23/2019.
[2021-12-03 12:19] LABS: Glucose Point of Care 72 mg/dL (70-110)
--- NOTE | 2021-12-03 12:23 | ED_ITS ---
HPI - General Adult General: Chief complaint: General Medical Stated complaint: dizziness Time Seen by Provider: 12/03/21 12:07 History of Present Illness: Patient is a 75-year-old with history of prior TIA, hypertension, hyperlipidemia, CAD who presents the emergency room with worsening lightheadedness and generalized weakness x2 days. She has noticed that since yesterday afternoon, she has experienced lightheadedness. Patient denies any focal weakness in the arms or legs, diplopia, visual field deficit, acute blindness, slurring of speech, chest pain, shortness breath, or pa lpitation. Patient still has lingering episodes of lightheadedness this morning. Patient denies any low LOC, vertigo, nausea/vomiting, diarrhea, melena hematochezia or abdominal complaints. He tells me each episodes of lightheadedness is persistent does not know how long last for. Patient has st ill been able to ambulate without any difficulty since the onset of symptoms. Patient reports left-sided severe neck pain. Patient has had pain for chronically for the last year however the pain has intensified in the last 2 days. Onset:2 days ago acutely Duration:2 days Location:home Severity:moderate Associated symptoms: Deny chest pain, dyspnea, nausea, rash, palpitations or vomiting Review of Systems Const: Denies: fever(s) or chills Eyes: Denies: change in vision ENMT: Denies: mouth pain Card: Denies: chest pain or palpitations Resp: Denies: dyspnea or non-productive cough GI: Denies: abdominal pain, nausea, vomiting or diarrhea : Denies: dysuria Musc: Reports: neck pain; Denies: extremity pain Skin/Breast: Denies: rash or new lesions Neuro: Reports: other (+light-headedness); Denies: weakness in extremities Psych: Reports: other (Normal mood) Ismael/Lymph: Denies: easy bruising PFSH ED PFSH: Medical History Aftercare following surgery of the genitourinary system B12 deficiency CAD (coronary artery disease) Cervical osteoarthritis Dizziness of unknown etiology Dyslipidemia Essential hypertension Fatigue History of stroke NSTEMI (non-ST elevated myocardial infarction) Obesity Thickened endometrium Unstable angina Vulvar warts Surgical History History of cataract surgery History of tubal ligation 1980 Status post hysteroscopic polypectomy 08/29/2021- hysteroscopic polypectomy via Myosure, excision of left vulvar wart performed by Dr. Isaacs at [facility] Family History Father No problems noted. Mother No problems noted. Brother Diabetes Hypertension Colon cancer late 40's-early 50's Sister Colon cancer, Onset Age: 60 Denies family history of Ovarian cancer Clotting disorder Heart disease Hyperlipidemia Breast cancer Anesthesia complication Bleeding disorder Uterine cancer Thyroid condition Stroke Social History Smoking and tobacco status: never smoked Alcohol intake: current Alcohol intake frequency: holidays/special occasions only Alcohol type: hard liquor Physical Exam Const: COMMON NORMALS: alert HENMT: COMMON NORMALS: atraumatic HEAD & SCALP: atraumatic MOUTH: moist mucous membranes not abnormal Eye: COMMON NORMALS: EOMs intact bilaterally and conjunctivae normal CONJUNCTIVA: Yes conjunctivae normal Neck/C-Spine: COMMON NORMALS: full ROM and supple Resp: COMMON NORMALS: normal respiratory effort and clear to auscultation bilaterally AUSCULTATION: clear to auscultation bilaterally Cardio: COMMON NORMALS: regular rate RATE: regular rate GI: COMMON NORMALS: Soft to palpation and non-tender PALPATION: Yes Soft to palpation Extremity: COMMON NORMALS: full ROM Neuro: SENSORIUM/ORIENTATION: Yes alert MOTOR EXAM: No Abnormal motor strength present and Other motor observations present (no focal motor deficits) OTHER: Mental status? Awake, alert, and oriented to self, year, month, location, and situation.? Following simple axial and appendicular commands.? Has appropriate fund of knowledge, comprehension, and insight.? Able to recall and understands pertinent aspects of medical history and current treatment status.? ? Language? Speech is fluent without word-finding difficulties.? Intact naming, expression, bookkeeper receptionist, and repetition.? ? Cranial nerves? 2,3,4,6: PERRL, EOMI with no nystagmus. 5: Intact sensation to light touch, symmetric? 7: Smile symmetrical, no facial droop.? 8: Hearing grossly intact.? 9,10: Normal palate movement.? 11: Normal strength in trapezius bilaterally 12: Tongue protrudes midline.? ? Motor examination? Normal bulk & tone. Strength as follows (R/L): Delts (5/5), Biceps (5/5), Triceps (5/5), Wrist ext (5/5), hip flexors (5/5), plantarflexors (5/5), dorsiflexors (5/5). Sensation? Light Touch: Grossly intact and equal in upper and lower extremities bilaterally? Romberg: Negative.? Distal joint position sense intact ? Coordination? Beexxu-lk-wryu-finger movements intact without dysmetria or past-pointing.? Rapid fingertaps: preserved amplitude without decriment.? No tremor, myoclonus or truncal ataxia.? ? Gait/stance? Steady, normal narrow base gait with appropriate arm swing and turning.? Tandem gait without hesitation or loss of balance. Psych: COMMON NORMALS: speech normal SPEECH: Yes normal speech MOOD & AFFECT: Yes euthymic mood Course Vital Signs: Vital signs: Vital Signs Temperature 97.9 F 12/03/21 12:30 Pulse Rate 68 12/03/21 12:30 Respiratory Rate 18 12/03/21 12:30 Blood Pressure 152/94 12/03/21 12:30 Pulse Oximetry 100 12/03/21 12:30 MDM - General Adult Medical Decision Making 75-year-old female with history of hypertension hyperlipidemia CAD, prior TIA presenting to the emergency room with acute onset of lightheadedness x2 days in the setting of chronic lightheadedness. On physical exam, patient has intact neuro exam. Patient has NIH stroke scale 0. Given this new onset lightheadedness, evaluate for ACS equivalent and posteiror fossa pathologies. Troponin x2 with delta < 5. EKG nonischemic. CT brain and CTA head neck negative for any posterior fossa pathology. Patient continues to have intermittent lightheadedness in the emergency room. His glucose of 72 with improved upon reassessment. Neuro exam is intact. Patient will be mated to hospital for high risk syncope work-up. Disposition: admission Lab Data : 12/03/21 12:35 12/03/21 12:[address] 12/03/21 12:09 IMPRESSION: No acute abnormality. Head/Neck CTA 12/03/21 12:09 IMPRESSION: No significant arterial restriction. 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 Mild stenosis in the origin of the right middle cerebral artery. Dilatation and tortuosity of the proximal basilar artery as above. Mild stenosis in the origin of the right posterior and left posterior cerebral arteries. No aneurysm or thrombus identified. No findings of arterial dissection identified. No change compared to 08/23/2019. Laboratory Results WBC 10.2 10^3/uL (4.0-10.0) H 12/03/21 12:35 RBC 4.49 10^6/uL (4.1-5.3) 12/03/21 12:35 Hgb 13.7 g/dL (11.5-15.3) 12/03/21 12:35 Hct 42.1 % (37.0-47.0) 12/03/21 12:35 MCV 93.8 fl (81-99) 12/03/21 12:35 MCH 30.5 pg (28.0-34.0) 12/03/21 12:35 MCHC 32.5 g/dL (30.0-36.0) 12/03/21 12:35 RDW 14.0 % (12.1-15.1) 12/03/21 12:35 Plt Count 253 10^3/cmm (130-400) 12/03/21 12:35 MPV 11.4 fL (7.4-10.4) H 12/03/21 12:35 Neut % (Auto) 76.7 % 12/03/21 12:35 Lymph % (Auto) 15.5 % 12/03/21 12:35 [place] % (Auto) 5.3 % 12/03/21 12:35 Eos % (Auto) 1.6 % 12/03/21 12:35 Baso % (Auto) 0.6 % 12/03/21 12:35 Neut # (Auto) 7.80 10^3/uL (1.8-7.7) H 12/03/21 12:35 Lymph # (Auto) 1.6 10^3/uL (0.8-4.8) 12/03/21 12:35 [place] # (Auto) 0.5 10^3/uL (0.2-0.9) 12/03/21 12:35 Eos # (Auto) 0.2 10^3/uL (0.0-0.8) 12/03/21 12:35 Baso # (Auto) 0.1 10^3/uL (0.0-0.1) 12/03/21 12:35 Nucleated RBC % (auto) 0 % 12/03/21 12:35 Nucleated RBCs # 0.0 /100WBC 12/03/21 12:35 Sodium 139 mmol/L (136-145) 12/03/21 12:35 Potassium 4.6 mmol/L (3.5-5.1) 12/03/21 12:35 Chloride 105 mmol/L (98-107) 12/03/21 12:35 Carbon Dioxide 25 mmol/L (22-29) 12/03/21 12:35 Anion Gap 13.6 (5-19) 12/03/21 12:35 BUN 18 mg/dL (8-23) 12/03/21 12:35 Creatinine 0.8 mg/dL (0.5-0.9) 12/03/21 12:35 GFR Calculation Not Reportable 12/03/21 12:35 Glucose 99 mg/dL (65-115) 12/03/21 12:35 POC Glucose 85 mg/dL (70-110) 12/03/21 15:18 Calculated Osmolality 290 mOsm/kg (285-295) 12/03/21 12:35 Calcium 8.6 mg/dL (8.5-10.5) 12/03/21 12:35 Troponin T Baseline 18 ng/L (0-10) H 12/03/21 12:35 Troponin T 120 Minute 16.71 ng/L (0-10) H 12/03/21 14:58 Delta Troponin T -1.29 ABS# (0-10) L 12/03/21 14:58 Imaging Data Other Imaging: Radiologist's impression: [address] [address] [address] Scan Report Signed Patient: Clemencia Garrison Unit #: [id number] : 1945 Age/Sex: 75 / F ADM Date: 12/03/21 Loc: ER Room/Bed: Attending Dr: Ordering Provider/Ordering MD: Ryan Aguirre MD Date of Service: 12/03/21 Procedure(s): CT angio headneck* [id number] Accession Number(s): [id number] Report Number: [id number] WS: [email or web address] CT angio headneck* [id number] REASON FOR EXAM: eval for dissection TECHNIQUE: Coronal and sagittal 2-D and MIP reformations. IV CONTRAST ADMINISTERED: 95 mL of Omnipaque 350. TOTAL EXAM DLP: 2123.[address] scans at [facility] use at least one of these dose optimizatio n techniques: automated exposure control; mA and/or kV adjustment per patient size (includes targeted exams where dose is matched to clinical indication); or iterative reconstruction. FINDINGS: ARCH: Calcified plaque in the origin of the innominate artery without significant stenosis. Calcified plaque in the origin of the right subclavian artery with 40-50% stenosis. Calcified plaque in the origin of the right vertebral artery without significant stenosis. Origins of the common carotids and left vertebral arteries are unremarkable. Large dominant right vertebral artery. CERVICAL: No significant stenosis in the common carotid arteries, origins of the internal carotid arteries, or distal cervical internal carotid arteries to the base of the skull. No significant stenosis in the cervical portions of the vertebral arteries. Intracranial: Calcified plaque without significant stenosis in the siphon portions of the internal carotid arteries. Internal carotid artery terminus is normal bilaterally. Mild stenosis in the origin of the right middle cerebral artery. No thrombus or aneurysm. The anterior and left middle cerebral arteries demonstrate no stenosis, thrombus, or aneurysm. The left vertebral artery essentially ends in the left posterior inferior cerebellar artery. There is tortuosity and mild dilatation of the proximal basilar artery with a maximum diameter of 4.5 mm. Mild stenosis in the origin of the right posterior cerebral artery. No aneurysm or thrombus. The left posterior cerebral artery fills from the left posterior communicating artery. There is mild to moderate stenosis in the origin. Examination is unchanged compared to 08/23/2019. CT/CT angio headne* [id number] IMPRESSION: No significant arterial restriction. 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 Mild stenosis in the origin of the right middle cerebral artery. Dilatation and tortuosity of the proximal basilar artery as above. Mild stenosis in the origin of the right posterior and left posterior cerebral arteries. No aneurysm or thrombus identified. No findings of arterial dissection identified. No change compared to 08/23/2019. ? Dictated By: Gunner Ndiaye Jr, MD Signed By: Gunner Ndiaye Jr, MD Signed Date/Time: 12/03/21 1446 DD/ [address] [address] [address] Scan Report Signed Patient: Clemencia Garrison Unit #: [id number] : 1945 Age/Sex: 75 / F ADM Date: 12/03/21 Loc: ER Room/Bed: Attending Dr: Ordering Provider/Ordering MD: Ryan Aguirre MD Date of Service: 12/03/21 Procedure(s): CT head wo con* [id number] Accession Number(s): [id number] Report Number: [id number] WS: [email or web address] CT head wo con* 22862 REASON FOR EXAM: ams IV CONTRAST ADMINISTERED: Noncontrast. TOTAL EXAM DLP: 814.[address] scans at [facility] use at least one of these dose optimization techniques: automated exposure control; mA and/or kV adjustment per patient size (includes targeted exams where dose is matched to clinical indication); or iterative reconstruction. FINDINGS: The examination is unchanged compared to 08/29/2019. There is no midline shift or other significant mass effect. No findings of intracranial hemorrhage and no extra-axial fluid collection. Small focus of hypodensity in the left thalamus compatible with old lacunar infarct. CSF spaces are normal volume and configuration. Prominent distal right vertebral artery and proximal basilar artery. Focal dense calcification involving the distal left vertebral artery. CT/CT head wo con* [id number] IMPRESSION: No acute abnormality. ? Dictated By: Gunner Ndiaye Jr, MD Signed By: Gunner Ndiaye Jr, MD Signed Date/Time: 12/03/211357 DD/ [address] [address] XRay Report Signed Patient: Clemencia Garrison Unit #: [id number] : 1945 Age/Sex: 75 / F ADM Date: 07/27/21 Loc: ER Room/Bed: Attending Dr: Ordering Provider/Ordering MD: Ezra Spaulding NP Date of Service: 07/27/21 Procedure(s): XR chest 2V* [id number] Accession Number(s): [id number] Report Number: [id number] PROCEDURE INFORMATION: Exam: XR Chest Exam date and time: 07/27/2021 7:51 PM Age: 75 years old Clinical indication: Cough; Patient HX: Body aches all over; Additional info: Cough fever TECHNIQUE: Imaging protocol: XR of the chest. Views: 2 views. COMPARISON: CR XR chest 1V portable [id number] 03/11/2021 1:43 PM FINDINGS: Lungs: Unchanged hyperinflation with mild interstitial prominence/fibrosis. No consolidation. The pulmonary vascularity is within normal limits. Pleural spaces: Unremarkable. No pleural effusion. No pneumothorax. Heart/Mediastinum: Unremarkable. No cardiomegaly. Unchanged ectasia of the thoracic aorta. Bones/joints: Unremarkable. XR/XR chest 2V* [id number] IMPRESSION: No acute findings. ? Radiation Dose CTDIVOL =? (mGy): DLP =? (mGy-cm) Dictated By: Ama Gomez Signed By: Ama Gomez Signed Date/Time: 07/27/212040 DD/ 50 Discharge Plan Discharge Patient Disposition: Admitted As Inpatient Clinical Impression: Light headedness, Near syncope Condition: Stable Coding Level of Care Code ED Firebrick And Refractory Tile Repairer for Chg Fwd Exam Comprehensive
[2021-12-03] MEDS: sodium chloride 0.9% 500 ML IV (12:38)
[2021-12-03] MEDS: lidocaine 5% Patch 1 PATCH TOPICAL (12:39)
[2021-12-03] MEDS: acetaminophen 500 mg Tablet PO (12:39)
[2021-12-03 12:46] LABS: Glucose Point of Care 75 mg/dL (70-110)
[2021-12-03 12:46] LABS: Basophils # 0.1 10^3/uL (0.0-0.1); Basophils % 0.6 %; Eosinophils # 0.2 10^3/uL (0.0-0.8); Eosinophils % 1.6 %; Hematocrit 42.1 % (37.0-47.0); Hemoglobin 13.7 g/dL (11.5-15.3); Lymphocytes # 1.6 10^3/uL (0.8-4.8); Lymphocytes % 15.5 %; Mean Corpuscular HGB Conc 32.5 g/dL (30.0-36.0); Mean Corpuscular Hemoglobin 30.5 pg (28.0-34.0); Mean Corpuscular Volume 93.8 fl (81-99); Mean Platelet Volume 11.4 fL (7.4-10.4); Monocytes # 0.5 10^3/uL (0.2-0.9); Monocytes % 5.3 %; Neutrophils % 76.7 %; Nucleated Red Blood Cells % 0 %; Platelet Count 253 10^3/cmm (130-400); Red Blood Count 4.49 10^6/uL (4.1-5.3); White Blood Count 10.2 10^3/uL (4.0-10.0)
--- NOTE | 2021-12-03 13:01 | PC.PHAR ---
pt states she takes care of her own medications-pt states she is no longer taking metoprolol tartrate 50mg bid last filled 09/07/21 90d/s-
[2021-12-03 13:14] LABS: Blood Urea Nitrogen 18 mg/dL (8-23); Calcium 8.6 mg/dL (8.5-10.5); Carbon Dioxide 25 mmol/L (22-29); Chloride 105 mmol/L (98-107); Creatinine Clr Calc Pharmacy 63.0012; Glucose 99 mg/dL (65-115); Osmolality Calculated 290 mOsm/kg (285-295); Sodium 139 mmol/L (136-145); Troponin(5th) Baseline 18 ng/L (0-10)
[2021-12-03] MEDS: iohexol 350 mg/mL 100 mL Btl IV (13:26)
[2021-12-03 13:46] LABS: Glucose Point of Care 77 mg/dL (70-110)
[2021-12-03 14:02] LABS: Anion Gap 13.6 (5-19); Potassium 4.6 mmol/L (3.5-5.1)
[2021-12-03] MEDS: dextrose 10% 1,000 ML 75 ML IV (14:05)
--- NOTE | 2021-12-03 14:09 | ECG_ITS ---
[facility] Test Date: 2021-12-03 Pat Name: Clemencia Garrison Department: Room: Gender: Female [employer]: : 1945 Requested By: Ryan Aguirre Order Number: [id number] Wendy MD: Robin Torrez M.D. Measurements Intervals [place] Rate: 65 P: 19 ID: [id number] QRS: -4 QRSD: 130 T: 1 QT: 420 QTc: 438 Interpretive Statements SINUS RHYTHM RIGHT BUNDLE BRANCH BLOCK [120+ ms QRS DURATION, UPRIGHT V1, 40+ ms S IN I/aVL/V4/V5/V6] Compared to ECG 08/27/2021 11:32:31 Right bundle-branch block now present Electronically Signed On 12-03-2021 21:13:59 CDT by Robin Torrez M.D. [id number]
[2021-12-03 15:21] LABS: Glucose Point of Care 85 mg/dL (70-110)
[2021-12-03 15:27] LABS: Troponin 5 2HR 16.71 ng/L (0-10)
[2021-12-03 15:28] LABS: Troponin 5 2HR Delta -1.29 ABS# (0-10)
[2021-12-03 16:03] LABS: Glucose Point of Care 101 mg/dL (70-110)
--- NOTE | 2021-12-03 17:18 | PM.HP ---
Providers/Chief Complaint Primary Care Provider: Brittany Ovalles Chief Complaint: dizziness History of Present Illness Clemencia Garrison is a 75 year old female who presented to the hospital with chief complaint of worsen dizziness. Patient is sitting that she has chronic dizziness which gets worse on ambulation and changing head position. She has history of B12 deficiency as well. No recent falls, fever, chest pain, shortness of breath or strokelike symptoms. Today her symptoms worsened and she decided to come to the hospital for further evaluation. In the ER she was diagnosed with presyncope and was admitted to hospital service for further work-up. Patient is hemodynamically stable, I requested TSH, B12 level and echo. She will be discharged tomorrow if clinically stable. Will do Amanda's maneuver tomorrow. Review of Systems Const: Denies: fever(s) Eyes: Denies: change in vision ENMT: Denies: throat pain Card: Denies: chest pain Resp: Denies: dyspnea GI: Denies: abdominal pain : Denies: flank pain Musc: Denies: neck pain Skin/Breast: Denies: rash Neuro: Reports: difficulty walking and vertigo; Denies: headache(s) Psych: Reports: anxiety Endo: Denies: polyuria Ismael/Lymph: Denies: easy bruising All/Imm: Denies: urticaria Medications/Allergies Home Medications Medication Instructions Recorded Confirmed Last Taken Type losartan 100 mg tablet 100 mg PO BEDTIME 07/16/21 12/03/21 12/02/21 History acetaminophen 325 mg capsule 325 mg PO Q4H PRN #60 cap 08/29/21 12/03/21 Unknown Rx ibuprofen 800 mg tablet 800 mg PO TID PRN #60 tab 08/29/21 12/03/21 Unknown Rx aspirin 81 mg tablet,delayed 81 mg PO BEDTIME 12/03/21 12/03/21 12/02/21 History release (Adult Aspirin Regimen) cetirizine 10 mg tablet (Zyrtec) 10 mg PO BEDTIME 12/03/21 12/03/21 12/02/21 History Allergies Allergy/AdvReac Type Severity Reaction Status Date / Time No Known Allergies Allergy Verified 12/03/21 13:02 PFSH Acute PFSH: Medical History Aftercare following surgery of the genitourinary system B12 deficiency CAD (coronary artery disease) Cervical osteoarthritis Dizziness of unknown etiology Dyslipidemia Essential hypertension Fatigue History of stroke NSTEMI (non-ST elevated myocardial infarction) Obesity Thickened endometrium Unstable angina Vulvar warts Surgical History History of cataract surgery History of tubal ligation 1980 Status post hysteroscopic polypectomy 08/29/2021- hysteroscopic polypectomy via Myosure, excision of left vulvar wart performed by Dr. Isaacs at [facility] Family History Father No problems noted. Mother No problems noted. Brother Diabetes Hypertension Colon cancer late 40's-early 50's Sister Colon cancer, Onset Age: 60 Denies family history of Ovarian cancer Clotting disorder Heart disease Hyperlipidemia Breast cancer Anesthesia complication Bleeding disorder Uterine cancer Thyroid condition Stroke Social History Smoking and tobacco status: never smoked Alcohol intake: current Alcohol intake frequency: holidays/special occasions only Alcohol type: hard liquor Vitals/I&O/Wt Last Vital Signs Temp 98 F 12/03/21 15:30 Pulse 98 12/03/21 16:00 Resp 18 12/03/21 16:00 BP 196/93 12/03/21 16:00 Pulse Ox 99 12/03/21 16:00 Weight last 48 hrs Weight 83.915 kg Physical Exam Narrative: Patient is an 72 position Surgeon Room air Nonfocal neuro exam Distended abdomen None tender No signs of peritonitis EOMI, PERRLA S1, S2 Heart rate in 60s Blood pressure stable Nonlabored breathing Session well on room air Data : 12/03/21 12:35 12/03/21 12:35 A&P Assessment and plan (1) Light headedness: Status: Acute (2) Near syncope: Status: Acute (3) B12 deficiency: Status: Chronic Plan Presyncope No recent falls Check B12 level Check TSH Echo in the morning If clinically stable will be able to discharge her tomorrow, will request PT for vestibular rehab and Apley's maneuver Patient is full code Cardiac diet Hemodynamically stable Attestations Medical Necessity Statement*: Discharge tomorrow, anticipating discharge in less than 48 hours Time Spent in Patient Care: 35mins Coding Level of Care Code Acute Chassis Wirer for Chg Fwd Diagnoses Light headedness R42 Near syncope R55 B12 deficiency E53.8
[2021-12-03 17:40] LABS: Glucose Point of Care 95 mg/dL (70-110)
[2021-12-03 18:45] LABS: Thyroid Stimulating Hormone 4.64 uIU/mL (0.27-4.20); Vitamin B12 191 pg/mL (232-1245)
[2021-12-03 18:46] LABS: Folate Level 9.9 ng/mL (4.8-37.3)
--- NOTE | 2021-12-03 20:03 | USCV_ITS ---
Transthoracic Echo Clemencia Garrison Age: 75 Gender: F : 1945 Exam Date: 12/03/2021 21:25 Ordering Phys: Lourdes Ricci MD Technologist: Christopher Alonzo [place] [facility] [place]: pre syncope BP: 183 / 84 HR: 70 Rhythm: Sinus Technical Quality: Adequate MEASUREMENTS (Male / Female) Normal Values 2D ECHO LV Diastolic Diameter PLAX 3.8 cm 4.2 - 5.9 / 3.9 - 5.3 cm LV Systolic Diameter PLAX 2.3 cm IVS Diastolic Thickness 1.7 cm 0.6 - 1.0 / 0.6 - 0.9 cm IVS Systolic Thickness 2.0 cm LVPW Diastolic Thickness 1.9 cm 0.6 - 1.0 / 0.6 - 0.9 cm LVPW Systolic Thickness 1.8 cm LVOT Diameter 1.8 cm LV Ejection Fraction 2D Teich 68.3 % LV Ejection Fraction MOD 2C 64.0 % LV Ejection Fraction 2C AL 64.0 % LA Diameter 4.5 cm LA Width 4.5 cm LA Height 5.1 cm Aorta at Sinotubular Diameter 2.0 cm M-MODE Aortic Annulus Diameter 2.5 cm LA Ao Ratio MM 1.8 DOPPLER AV Peak Velocity 189.0 cm/s LVOT Peak Velocity 136.0 cm/s AV Area Cont Eq vti 2.0 cm squared AV Area Cont Eq pk 1.9 cm squared MV Area PHT 2.3 cm squared Mitral E to A Ratio 0.9 MV E' Velocity 55.0 cm/s Mitral E to MV E' Ratio 16.3 Mitral E to LV E' Lateral Ratio 16.1 Mitral E to LV E' Septal Ratio 16.8 TR Peak Velocity 234.5 cm/s TR Peak Gradient 22.0 mmHg TR Mean Velocity 185.3 cm/s TR Mean Gradient 14.8 mmHg TR Velocity Time Integral 66.1 cm Right Atrial Pressure 3.0 mmHg Pulmonary Artery Systolic Pressu 25.0 mmHg PV Peak Velocity 133.3 cm/s RV Acceleration Time 0.1 s RV Ejection Time 0.3 s RV AcT/ET 0.3 FINDINGS Left Ventricle Normal left ventricular size. LV systolic function is normal with EF of 60- 65%. No regional wall motion abnormalities. Moderate left ventricular hypertrophy. Grade 1 diastolic dysfunction Right Ventricle The right ventricle is normal in size and function. Right Atrium The right atrium is normal in size. Left Atrium The left atrium is normal in size. Mitral Valve Moderate mitral annular calcification is seen without significant stenosis or prolapse. There is mild mitral regurgitation. Aortic Valve Grossly normal. No significant stenosis or regurgitation seen. Tricuspid Valve Structurally normal tricuspid valve without significant stenosis Mild tricuspid regurgitation. Pulmonary artery systolic pressure is normal. Pulmonic Valve Not well-visualized Pericardium Normal pericardium without effusion. Aorta Normal ascending aorta dimension. CONCLUSIONS LV systolic function is normal with EF of 60-65% Grade 1 diastolic dysfunction Moderate left ventricular hypertrophy seen Mild mitral regurgitation. Moderate mitral annular calcification seen. Mild tricuspid regurgitation. Compared to prior echocardiogram from 07/27/2020, no significant changes are seen. Robin Torrez MD (Electronically Signed) Final Date: 05 December 2021 07:28 S
[2021-12-03] MEDS: aspirin 81 mg EC Tablet PO (20:37)
[2021-12-03] MEDS: losartan 50 mg Tablet 100 MG PO (20:38)
[2021-12-03] MEDS: meclizine 25 mg tablet PO (20:41)
[2021-12-03] MEDS: enoxaparin 40 mg/0.4 mL Syringe SUBCUT (20:42)
[2021-12-03] MEDS: acetaminophen 325 mg Tablet PO (23:10)
[2021-12-04 03:13] VITALS: BP 130/81; PULSE 55; RESP 18; TEMP 36.6; O2SAT 95
[2021-12-04 05:48] LABS: Basophils % 0.6 %; Eosinophils # 0.4 10^3/uL (0.0-0.8); Eosinophils % 5.2 %; Hematocrit 40.6 % (37.0-47.0); Hemoglobin 12.5 g/dL (11.5-15.3); Lymphocytes # 2.1 10^3/uL (0.8-4.8); Lymphocytes % 31.6 %; Mean Corpuscular HGB Conc 30.8 g/dL (30.0-36.0); Mean Corpuscular Volume 97.6 fl (81-99); Monocytes # 0.6 10^3/uL (0.2-0.9); Monocytes % 8.3 %; Neutrophils # 3.66 10^3/uL (1.8-7.7); Neutrophils % 54.2 %; Nucleated Red Blood Cells % 0 %; Platelet Count 226 10^3/cmm (130-400); Red Blood Count 4.16 10^6/uL (4.1-5.3); White Blood Count 6.8 10^3/uL (4.0-10.0)
[2021-12-04 06:00] VITALS: PULSE 55
[2021-12-04 06:05] LABS: Anion Gap 12.3 (5-19); Blood Urea Nitrogen 16 mg/dL (8-23); Calcium 8.3 mg/dL (8.5-10.5); Carbon Dioxide 24 mmol/L (22-29); Chloride 108 mmol/L (98-107); Glucose 102 mg/dL (65-115); Osmolality Calculated 291 mOsm/kg (285-295); Potassium 4.3 mmol/L (3.5-5.1); Sodium 140 mmol/L (136-145)
[2021-12-04 07:17] VITALS: BP 133/79; PULSE 61; RESP 14; TEMP 36.4; O2SAT 98
[2021-12-04 07:44] LABS: Free T4 Free Thyroxine 0.89 ng/dL (0.82-1.77)
[2021-12-04] MEDS: cyanocobalamin 1,000 mcg/mL SDV 1000 MCG IM (08:20)
[2021-12-04 08:35] VITALS: PULSE 78; O2SAT 94
--- NOTE | 2021-12-04 10:27 | P.DS_ITS ---
Discharge Providers Date of Admission: 12/03/21 15:43 Date of Discharge: December 04, 2021 Attending Provider at Admission: Lourdes Ricci MD Attending Provider at Discharge: Lourdes Ricci MD Primary Care Provider: Brittany Ovalles Diagnoses at Discharge Discharge Diagnosis (1) Light headedness: Status: Acute (2) Near syncope: Status: Acute (3) B12 deficiency: Status: Chronic Reason for Visit Reason for Visit: dizziness Hospital Course Hospital Course My admitting note Clemencia Garrison is a 75 year old female who presented to the hospital with chief complaint of worsen dizziness.? Patient is sitting that she has chronic dizziness which gets worse on ambulation and changing head position.? She has history of B12 deficiency as well.? No recent falls, fever, chest pain, shortness of breath or strokelike symptoms.? Today her symptoms worsened and she decided to come to the hospital for further evaluation.? In the ER she was diagnosed with presyncope and was admitted to hospital service for further work- up.? Patient is hemodynamically stable, I requested TSH, B12 level and echo.? She will be discharged tomorrow if clinically stable.? Will do Amanda's maneuver Hospital course Patient was admitted for management and evaluation of presyncopal event. She was diagnosed with severe vitamin B12 deficiency. I have given her vitamin B12 supplemental regimen along folic acid. Positive Romberg sign, vitamin B12 deficiency related peripheral neuropathy. NIH 0. No cerebellar signs. CTA head and neck unremarkable. Free T4 is normal. Echo result is pending at the time of discharge Physical Exam Narrative: Pleasant female Cooperative NIH 0 No signs of cerebellar stroke Romberg sign positive No nystagmus Harrold-Hallpike maneuver negative S1, S2 Abdomen soft Breathing well on room air Discharge Data Studies Completed and Pending Completed Studies During Hospitalization Category Date Time Status CT head wo con* [id number] Urgent Cat Scan 12/03/21 12:09 Completed CTA head neck [CT angio headneck* [id number]] Urgent Cat Scan 12/03/21 12:09 Completed Pending at discharge Category Date Time Status CV. echo complete* [id number] Routine Ultrasound 12/03/21 20:03 Taken Radiology Impressions Head CT 12/03/21 12:09 IMPRESSION: No acute abnormality. Head/Neck CTA 12/03/21 12:09 IMPRESSION: No significant arterial restriction. 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 Mild stenosis in the origin of the right middle cerebral artery. Dilatation and tortuosity of the proximal basilar artery as above. Mild stenosis in the origin of the right posterior and left posterior cerebral arteries. No aneurysm or thrombus identified. No findings of arterial dissection identified. No change compared to 08/23/2019. Laboratory Results WBC 6.8 10^3/uL (4.0-10.0) 12/04/21 05:34 RBC 4.16 10^6/uL (4.1-5.3) 12/04/21 05:34 Hgb 12.5 g/dL (11.5-15.3) 12/04/21 05:34 Hct 40.6 % (37.0-47.0) 12/04/21 05:34 MCV 97.6 fl (81-99) 12/04/21 05:34 MCH 30.0 pg (28.0-34.0) 12/04/21 05:34 MCHC 30.8 g/dL (30.0-36.0) D 12/04/21 05:34 RDW 14.0 % (12.1-15.1) 12/04/21 05:34 Plt Count 226 10^3/cmm (130-400) 12/04/21 05:34 MPV 12.0 fL (7.4-10.4) H 12/04/21 05:34 Neut % (Auto) 54.2 % 12/04/21 05:34 Lymph % (Auto) 31.6 % 12/04/21 05:34 [place] % (Auto) 8.3 % 12/04/21 05:34 Eos % (Auto) 5.2 % 12/04/21 05:34 Baso % (Auto) 0.6 % 12/04/21 05:34 Neut # (Auto) 3.66 10^3/uL (1.8-7.7) 12/04/21 05:34 Lymph # (Auto) 2.1 10^3/uL (0.8-4.8) 12/04/21 05:34 [place] # (Auto) 0.6 10^3/uL (0.2-0.9) 12/04/21 05:34 Eos # (Auto) 0.4 10^3/uL (0.0-0.8) 12/04/21 05:34 Baso # (Auto) 0.0 10^3/uL (0.0-0.1) 12/04/21 05:34 Nucleated RBC % (auto) 0 % 12/04/21 05:34 Nucleated RBCs # 0.0 /100WBC 12/04/21 05:34 Sodium 140 mmol/L (136-145) 12/04/21 05:34 Potassium 4.3 mmol/L (3.5-5.1) 12/04/21 05:34 Chloride 108 mmol/L (98-107) H 12/04/21 05:34 Carbon Dioxide 24 mmol/L (22-29) 12/04/21 05:34 Anion Gap 12.3 (5-19) 12/04/21 05:34 BUN 16 mg/dL (8-23) 12/04/21 05:34 Creatinine 0.8 mg/dL (0.5-0.9) 12/04/21 05:34 GFR Calculation Not Reportable 12/04/21 05:34 Glucose 102 mg/dL (65-115) 12/04/21 05:34 POC Glucose 95 mg/dL (70-110) 12/03/21 17:14 Calculated Osmolality 291 mOsm/kg (285-295) 12/04/21 05:34 Calcium 8.3 mg/dL (8.5-10.5) L 12/04/21 05:34 Troponin T Baseline 18 ng/L (0-10) H 12/03/21 12:35 Troponin T 120 Minute 16.71 ng/L (0-10) H 12/03/21 14:58 Delta Troponin T -1.29 ABS# (0-10) L 12/03/21 14:58 Vitamin B12 191 pg/mL (232-1245) L 12/03/21 12:35 Folate 9.9 ng/mL (4.8-37.3) 12/03/21 12:35 TSH 4.64 uIU/mL (0.27-4.20) H 12/03/21 12:35 Free T4 0.89 ng/dL (0.82-1.77) 12/04/21 05:34 Vitals Last Vital Signs Temp 97.5 F L 12/04/21 07:17 Pulse 78 12/04/21 08:35 Resp 14 12/04/21 07:17 BP 133/79 12/04/21 07:17 Pulse Ox 94 12/04/21 08:35 Discharge Plan Discharge Patient Disposition: Home Condition: Stable Prescriptions: New cyanocobalamin (vitamin B-12) 1,000 mcg capsule 1,000 mcg PO DAILY Qty: 120 3RF Rx Instructions: 1,000 mcg daily for 10 days, then weekly for four weeks, then monthly for life. folic acid 1 mg tablet 1 mg PO DAILY Qty: 30 0RF Continued losartan 100 mg tablet 100 mg PO BEDTIME 0RF ibuprofen 800 mg tablet 800 mg PO TID PRN (Reason: pain) Qty: 60 0RF acetaminophen 325 mg capsule 325 mg PO Q4H PRN (Reason: fever or pain) Qty: 60 0RF Zyrtec 10 mg Tablet 10 mg PO BEDTIME 0RF Adult Aspirin Regimen 81 mg tablet,delayed release (DR/EC) 81 mg PO BEDTIME 0RF Discharge Orders: Discharge Order (Routine); Ordered 12/04/21 Ordered By: Lourdes Ricci Referrals: Brittany Ovalles PA [Primary Care Provider] - 12/12/21 10:45 am Discharge Diet: Cardiac Discharge Activity: Increase activity as tolerated Patient Instructions: Vitamin B12 Deficiency (GEN), Opioid Safety Discharge Attestations Time Spent in Discharge Care*: less than 30 min Quality Metrics Clinical Quality Measures [ No reported AMI, CVA or VTE this stay] Coding Level of Care Code Acute Chg FW DC note Diagnoses Light headedness R42 Near syncope R55 B12 deficiency E53.8
[2021-12-04 11:00] VITALS: BP 186/96; PULSE 71; RESP 16; TEMP 36.7; O2SAT 95
--- NOTE | 2021-12-04 11:33 | PC.NURSE ---
Discharge Note Patient discharged to home via private vehicle accompanied by self. Discharge instructions reviewed with patient and/or maintenance representative. Mobile pharmacy medications and/or prescriptions provided. Belongings/home medications returned.
[2021-12-04 11:34] VITALS: BP 186/96; PULSE 71; RESP 16; TEMP 36.7; O2SAT 95
== END 2021-12-04 11:35 | disposition home or self-care (01) ==
LOC: ER 12:23 → MEDSURG 18:26
PROVIDERS: Admitting Provider Internal Medicine; Emergency Provider Emergency Medicine; PCP Physician Assistant; Visit Provider Internal Medicine
DX: R42 Dizziness and giddiness (principal); R55 Syncope and collapse; E53.8 Deficiency of other specified B group vitamins; Z79.82 Long term (current) use of aspirin; I25.10 Atherosclerotic heart disease of native coronary artery without angina pectoris; M47.892 Other spondylosis, cervical region; E78.5 Hyperlipidemia, unspecified; I10 Essential (primary) hypertension; Z86.73 Personal history of transient ischemic attack (TIA), and cerebral infarction without residual deficits; I25.2 Old myocardial infarction; E66.9 Obesity, unspecified; Z68.31 Body mass index [BMI] 31.0-31.9, adult
CPT/HCPCS: 36415; 36416; 70450; 70496; 70498; 80048; 82607; 82746; 82962; 84439; 84443; 84484; 85025; 93005; 93306; 96360; 96361; 96372; 99285; G0378; J1650; J3420; J7040; J8597; Q9967

== ENCOUNTER 2022-04-15 06:00 | Outpatient (RCR) | payer MEDICARE, MEDICAID, SELFPAY | END 2022-04-21 23:59 | disposition home or self-care (01) | LOC: SPT 06:00 | PROVIDERS: PCP Physician Assistant; Referring Provider Physician Assistant; Visit Provider Physician Assistant | DX: H81.92 Unspecified disorder of vestibular function, left ear (principal) | CPT/HCPCS: 97112; 97161 ==

== ENCOUNTER 2022-04-22 06:00 | Outpatient (RCR) | payer MEDICARE, MEDICAID, SELFPAY | END 2022-05-22 23:59 | disposition home or self-care (01) | LOC: SPT 06:00 | PROVIDERS: PCP Physician Assistant; Visit Provider Physician Assistant | DX: H81.92 Unspecified disorder of vestibular function, left ear (principal) | CPT/HCPCS: 97110; 97112 ==

== ENCOUNTER 2022-12-12 13:37 | Emergency (ER) | payer MEDICARE, SELFPAY ==
[2022-12-12 13:49] VITALS: BP 127/81; PULSE 80; RESP 17; TEMP 36.3; O2SAT 96; BMI 31.7
[2022-12-12 14:02] VITALS: RESP 16
--- NOTE | 2022-12-12 14:02 | ECG_ITS ---
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 Measurements Intervals [place] Rate: 77 P: 45 TN: 166 QRS: -50 QRSD: 89 T: 42 QT: 368 QTc: 418 Interpretive Statements SINUS RHYTHM PATTERN CONSISTENT WITH PULMONARY DISEASE LEFT ANTERIOR FASCICULAR BLOCK [QRS AXIS <= -45, QR IN I, RS IN II] Compared to ECG 12/03/2021 13:14:15 Left anterior fascicular block now present Right bundle-branch block no longer present Electronically Signed On 12-12-2022 22:49:01 CDT by Sabrina Mix M.D. [id number]
[2022-12-12 15:00] VITALS: BP 195/93; PULSE 62; RESP 16; O2SAT 97
--- NOTE | 2022-12-12 15:01 | ED_ITS ---
HPI - Dizziness General: Chief Complaint: Dizziness Stated Complaint: dizzy Time Seen by Provider: 12/12/22 14:05 History of Present Illness: HPI Narrative: Patient comes in with dizziness and generalized weakness and not feeling well. States that she has been dealing with the dizziness for about 5 years and has had numerous complete work-ups with no diagnosis. States that she came in today because of the generalized weakness and not feeling well. She denies fever, congestion, vomiting, or diarrhea. She does endorse a mild nonproductive cough. Associated symptoms: Denies chest pain, headache(s), nausea, palpitations or vomiting Associated neuro symptoms: Deny numbness in extremities Review of Systems Const: Denies: fever(s) or body aches Eyes: Denies: change in vision or blurry vision ENMT: Denies: throat pain or odynophagia Card: Denies: chest pain or palpitations Resp: Reports: non-productive cough; Denies: dyspnea GI: Denies: abdominal pain, nausea or vomiting : Denies: flank pain or dysuria Musc: Denies: neck pain or back pain Skin/Breast: Denies: rash or pruritus Neuro: Reports: weakness in extremities and dizziness; Denies: headache(s) or numbness in extremities Psych: Denies: anxiety or change in appetite Endo: Denies: polyuria or excessive sweating PFSH ED PFSH: Medical History Aftercare following surgery of the genitourinary system B12 deficiency CAD (coronary artery disease) Cervical osteoarthritis Dizziness of unknown etiology Dyslipidemia Essential hypertension Fatigue History of stroke NSTEMI (non-ST elevated myocardial infarction) Obesity Thickened endometrium Unstable angina Vulvar warts Surgical History History of cataract surgery History of tubal ligation 1980 Status post hysteroscopic polypectomy 08/29/2021- hysteroscopic polypectomy via Myosure, excision of left vulvar wart performed by Dr. Isaacs at [facility] Family History Father No problems noted. Mother No problems noted. Brother Diabetes Hypertension Colon cancer late 40's-early 50's Sister Colon cancer, Onset Age: 60 Denies family history of Ovarian cancer Clotting disorder Heart disease Hyperlipidemia Breast cancer Anesthesia complication Bleeding disorder Uterine cancer Thyroid condition Stroke Social History Smoking and tobacco status: never smoked Alcohol intake: current Alcohol intake frequency: holidays/special occasions only Alcohol type: hard liquor Physical Exam Const: COMMON NORMALS: no acute distress, patient oriented x3, healthy appearing and alert HENMT: COMMON NORMALS: normocephalic and atraumatic HEAD & SCALP: normocephalic and atraumatic Eye: COMMON NORMALS: Equal, round and reactive pupils present and EOMs intact bilaterally PUPIL: Yes Equal, round and reactive pupils present Neck/C-Spine: COMMON NORMALS: full ROM and supple Resp: COMMON NORMALS: normal respiratory effort, No retractions and No use of accessory muscles Cardio: COMMON NORMALS: regular rate and regular rhythm RATE: regular rate RHYTHM: regular rhythm GI: COMMON NORMALS: Normal to inspection, nondistended, normoactive bowel sounds present, Soft to palpation and non-tender PALPATION: Yes Soft to palpation Back/Pelvis: COMMON NORMALS: thoracic and lumbar spine normal to inspection and no thoracic nor lumbar tenderness Extremity: COMMON NORMALS: normal to inspection and full ROM Neuro: COMMON NORMALS: patient oriented x3 SENSORIUM/ORIENTATION: Yes alert Psych: COMMON NORMALS: mental status grossly normal and cooperative Skin: COMMON NORMALS: no rashes or lesions noted and no wounds GENERAL SKIN EXAM: no rashes or lesions noted Course Vital Signs: Vital signs: Vital Signs Temperature 97.4 F L 12/12/22 13:49 Pulse Rate 64 12/12/22 17:00 Respiratory Rate 18 12/12/22 17:00 Blood Pressure 195/93 12/12/22 15:00 Pulse Oximetry 98 12/12/22 17:00 Oxygen Delivery Me thod 12/12/22 13:49 MDM - Dizziness Medical Decision Making Patient comes in with dizziness and generalized weakness and not feeling well. States that she has been dealing with the dizziness for about 5 years and has had numerous complete work-ups with no diagnosis. States that she came in today because of the generalized weakness and not feeling well. She denies fever, congestion, vomiting, or diarrhea. She does endorse a mild nonproductive cough. Physical exam is unremarkable. Will check labs, and reassess. On reassessment I talked to the patient about the test results. Her white blood cell count is normal, her potassium, chloride, and creatinine are all normal. Will discharge home at this time with precautions to return for worsening or changing symptoms Lab Data 12/12/22 15:20 12/12/22 15:20 Laboratory Results WBC 7.9 10^3/uL (4.0-10.0) 12/12/22 15:20 RBC 4.55 10^6/uL (4.1-5.3) 12/12/22 15:20 Hgb 13.7 g/dL (11.5-15.3) 12/12/22 15:20 Hct 42.1 % (37.0-47.0) 12/12/22 15:20 MCV 92.5 fl (81-99) 12/12/22 15:20 MCH 30.1 pg (28.0-34.0) 12/12/22 15:20 MCHC 32.5 g/dL (30.0-36.0) 12/12/22 15:20 RDW 14.6 % (12.1-15.1) 12/12/22 15:20 Plt Count 266 10^3/cmm (130-400) 12/12/22 15:20 MPV 11.6 fL (7.4-10.4) H 12/12/22 15:20 Neut % (Auto) 70.9 % 12/12/22 15:20 Lymph % (Auto) 17.8 % 12/12/22 15:20 [place] % (Auto) 7.2 % 12/12/22 15:20 Eos % (Auto) 3.3 % 12/12/22 15:20 Baso % (Auto) 0.5 % 12/12/22 15:20 Neut # (Auto) 5.61 10^3/uL (1.8-7.7) 12/12/22 15:20 Lymph # (Auto) 1.4 10^3/uL (0.8-4.8) 12/12/22 15:20 [place] # (Auto) 0.6 10^3/uL (0.2-0.9) 12/12/22 15:20 Eos # (Auto) 0.3 10^3/uL (0.0-0.8) 12/12/22 15:20 Baso # (Auto) 0.0 10^3/uL (0.0-0.1) 12/12/22 15:20 Nucleated RBC % (auto) 0 % 12/12/22 15:20 Nucleated RBCs # 0.0 /100WBC 12/12/22 15:20 Sodium 138 mmol/L (136-145) 12/12/22 15:20 Potassium 4.8 mmol/L (3.5-5.1) 12/12/22 15:20 Chloride 105 mmol/L (98-107) 12/12/22 15:20 Carbon Dioxide 25 mmol/L (22-29) 12/12/22 15:20 Anion Gap 12.8 (5-19) 12/12/22 15:20 BUN 16 mg/dL (8-23) 12/12/22 15:20 Creatinine 0.8 mg/dL (0.5-0.9) 12/12/22 15:20 GFR Calculation Not Reportable 12/12/22 15:20 Glucose 83 mg/dL (65-115) 12/12/22 15:20 Calculated Osmolality 286 mOsm/kg (285-295) 12/12/22 15:20 Calcium 9.3 mg/dL (8.5-10.5) 12/12/22 15:20 Total Bilirubin 0.5 mg/dL (0.15-1.2) 12/12/22 15:20 AST 16 U/L (0-32) 12/12/22 15:20 ALT 14 U/L (0-33) 12/12/22 15:20 Alkaline Phosphatase 63 U/L (35-105) 12/12/22 15:20 Total Protein 6.8 g/dL (6.6-8.7) 12/12/22 15:20 Albumin 3.9 g/dL (3.5-5.2) 12/12/22 15:20 Globulin 2.9 g/dL (1.3-4.6) 12/12/22 15:20 Discharge Plan Discharge Patient Disposition: Home Clinical Impression: Dizziness Condition: Stable Prescriptions: No Action losartan 100 mg tablet 100 mg PO BEDTIME ibuprofen 800 mg tablet 800 mg PO TID PRN (Reason: pain) Qty: 60 0RF acetaminophen 325 mg capsule 325 mg PO Q4H PRN (Reason: fever or pain) Qty: 60 0RF aspirin [Adult Aspirin Regimen] 81 mg tablet,delayed release (DR/EC) 81 mg PO BEDTIME fluticasone propionate 50 mcg/actuation spray,suspension 1 spray INTRANASAL BID cholecalciferol (vitamin D3) 1,250 mcg (50,000 unit) capsule 1,250 mcg PO Q7D Discharge Orders: Discharge ED (Routine); Ordered 12/12/22 Ordered By: Tripp West Referrals: Brittany Ovalles PA [Primary Care Provider] - Coding Level of Care Code ED [employer] Car[employer] Operator for Sergio Graham
[2022-12-12 15:33] LABS: Basophils % 0.5 %; Eosinophils # 0.3 10^3/uL (0.0-0.8); Eosinophils % 3.3 %; Hematocrit 42.1 % (37.0-47.0); Hemoglobin 13.7 g/dL (11.5-15.3); Lymphocytes # 1.4 10^3/uL (0.8-4.8); Lymphocytes % 17.8 %; Mean Corpuscular HGB Conc 32.5 g/dL (30.0-36.0); Mean Corpuscular Hemoglobin 30.1 pg (28.0-34.0); Mean Corpuscular Volume 92.5 fl (81-99); Mean Platelet Volume 11.6 fL (7.4-10.4); Monocytes # 0.6 10^3/uL (0.2-0.9); Monocytes % 7.2 %; Neutrophils # 5.61 10^3/uL (1.8-7.7); Neutrophils % 70.9 %; Nucleated Red Blood Cells % 0 %; Platelet Count 266 10^3/cmm (130-400); Red Blood Count 4.55 10^6/uL (4.1-5.3); Red Cell Distribution Width 14.6 % (12.1-15.1); White Blood Count 7.9 10^3/uL (4.0-10.0)
[2022-12-12 15:52] LABS: Alanine Aminotransferase 14 U/L (0-33); Albumin Level 3.9 g/dL (3.5-5.2); Alkaline Phosphatase 63 U/L (35-105); Aspartate Amino Transferase 16 U/L (0-32); Blood Urea Nitrogen 16 mg/dL (8-23); Calcium 9.3 mg/dL (8.5-10.5); Carbon Dioxide 25 mmol/L (22-29); Chloride 105 mmol/L (98-107); Globulin 2.9 g/dL (1.3-4.6); Glucose 83 mg/dL (65-115); Osmolality Calculated 286 mOsm/kg (285-295); Sodium 138 mmol/L (136-145); Total Bilirubin 0.5 mg/dL (0.15-1.2); Total Protein 6.8 g/dL (6.6-8.7)
[2022-12-12 16:00] VITALS: PULSE 64; RESP 18; O2SAT 97
[2022-12-12 16:00] LABS: Anion Gap 12.8 (5-19); Potassium 4.8 mmol/L (3.5-5.1)
[2022-12-12 17:00] VITALS: PULSE 64; RESP 18; O2SAT 98
[2022-12-12 17:35] VITALS: PULSE 72; RESP 18; O2SAT 95
== END 2022-12-12 17:44 | disposition home or self-care (01) ==
PROVIDERS: Emergency Provider Emergency Medicine; PCP Physician Assistant
DX: R42 Dizziness and giddiness (principal); Z79.82 Long term (current) use of aspirin; I25.10 Atherosclerotic heart disease of native coronary artery without angina pectoris; E78.5 Hyperlipidemia, unspecified; I10 Essential (primary) hypertension; I25.2 Old myocardial infarction; Z86.73 Personal history of transient ischemic attack (TIA), and cerebral infarction without residual deficits
CPT/HCPCS: 36415; 80053; 85025; 93005; 99284

== ENCOUNTER 2023-03-10 11:50 | Outpatient (CLI) | payer MEDICARE, MEDICAID, SELFPAY ==
--- NOTE | 2023-03-10 11:58 | MR_ITS ---
WS: [id number] MRI BRAIN WITH HIGH-RESOLUTION IMAGING THROUGH THE INTERNAL AUDITORY CANALS WITHOUT AND WITH CONTRAST HISTORY: VERTIGO COMPARISON: 07/19/2019 TECHNIQUE: Multiplanar, multisequence imaging is performed through the brain. Additional 3 mm imaging performed in multiple planes through the internal auditory canal. Postcontrast imaging with 19 ml's of MultiHance. No acute intracranial hemorrhage, midline shift, edema or mass effect. Normal diffusion imaging. Moderate small vessel ischemic disease with no prior infarcts. Very mild at rophy. Ventricles and extra-axial spaces are normal. No inferior displacement of cerebellar tonsils. Clivus and pituitary gland are normal. Internal and external auditory canals: Unremarkable. Cranial nerves VII and VIII complexes: Unremarkable. No enhancement or mass. Cerebellopontine angles: Normal. Paranasal sinuses: Mucous retention cyst in the RIGHT maxillary sinus. Mastoid air cells: Small amount of fluid in the LEFT mastoid air cells. Calvarium and scalp: Normal. Small venous angioma in the LEFT frontal lobe. No enhancing masses. Dural venous sinuses are negative . MR/MR iac's wo/w con* [id number] IMPRESSION: 1. No signal abnormality or enhancement along the internal auditory canals or cerebellopontine angles. 2. Moderate small vessel ischemic disease. No acute infarct. 3. Chronic mild LEFT mastoid air cell effusion.
[2023-03-10] MEDS: gadobenate dimeglumine 20 mL vial IV (13:36)
== END 2023-03-10 11:51 | disposition home or self-care (01) ==
PROVIDERS: PCP Physician Assistant; Visit Provider Physician Assistant
DX: H81.4 Vertigo of central origin (principal); J34.1 Cyst and mucocele of nose and nasal sinus
CPT/HCPCS: 70553; A9577

== ENCOUNTER 2023-03-19 13:53 | Inpatient (IN) | payer MEDICARE, MEDICAID, SELFPAY ==
[2023-03-19] VITALS (37 sets, daily range): BP systolic 127–196; BP diastolic 64–91; PULSE 55–86; RESP 12–33; TEMP 36.6; O2SAT 93–98; BMI 31.6
--- NOTE | 2023-03-19 13:56 | ECG_ITS ---
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 Measurements Intervals [place] Rate: 63 P: -5 NV: 165 QRS: -29 QRSD: 92 T: 39 QT: 389 QTc: 401 Interpretive Statements SINUS RHYTHM BORDERLINE LEFT AXIS DEVIATION [QRS AXIS < -20] Compared to ECG 12/12/2022 13:58:55 Left anterior fascicular block no longer present Electronically Signed On 03-20-2023 10:09:25 CDT by Sabrina Mix M.D. [id number]
--- NOTE | 2023-03-19 13:57 | XR_ITS ---
WS: [id number] Exam: XR chest 1V portable [id number] Date/Time of Exam: 03/19/2023 2:00 PM Reason For Exam: cp Comparison 07/27/2021. The lungs are clear and fully expanded. Normal cardiomediastinal silhouette for technique. No pleural effusions. Bony structures are intact. Anchoring screw in the right humeral head. XR/XR chest 1V portable [id number] IMPRESSION: 1. No acute cardiopulmonary finding.
--- NOTE | 2023-03-19 14:00 | W.ED.CHESTPA ---
HPI - Chest Pain General: Chief Complaint: Chest Pain Stated Complaint: Ovalles sent for chest pressure Time Seen by Provider: 03/19/23 13:55 Source: patient Mode of arrival: ambulatory Limitations: no limitations History of Present Illness: 77-year-old female states she been having chest pain since yesterday got worse this morning states to pressure type pain in the center of her chest had some mild dyspnea states pain radiates to her back she denies any worsening improving factors she denies any vomiting or diarrhea. She does have a history of a stent in the past. Associated symptoms: Deny abdominal pain, dyspnea, fever(s), nausea or vomiting Review of Systems Const: Denies: fever(s), chills, body aches or change in appetite Eyes: Denies: eye discomfort ENMT: Denies: throat pain or dental pain Card: Reports: chest pain Resp: Denies: dyspnea GI: Denies: abdominal pain, nausea, vomiting or diarrhea : Denies: dysuria Musc: Denies: neck pain or back pain Skin/Breast: Denies: rash Neuro: Denies: headache(s) PFS ED PFSH: Medical History Aftercare following surgery of the genitourinary system B12 deficiency CAD (coronary artery disease) Cervical osteoarthritis Dizziness of unknown etiology Dyslipidemia Essential hypertension Fatigue History of stroke NSTEMI (non-ST elevated myocardial infarction) Obesity Thickened endometrium Unstable angina Vulvar warts Surgical History History of cataract surgery History of tubal ligation 1980 Status post hysteroscopic polypectomy 08/29/2021- hysteroscopic polypectomy via Myosure, excision of left vulvar wart performed by Dr. Isaacs at [facility] Family History Father No problems noted. Mother No problems noted. Brother Diabetes Hypertension Colon cancer late 40's-early 50's Sister Colon cancer, Onset Age: 60 Denies family history of Ovarian cancer Clotting disorder Heart disease Hyperlipidemia Breast cancer Anesthesia complication Bleeding disorder Uterine cancer Thyroid condition Stroke Social History Smoking and tobacco status: never smoked Alcohol intake: current Alcohol intake frequency: holidays/special occasions only Alcohol type: hard liquor Substance/Drug Use: never Physical Exam Const: COMMON NORMALS: no acute distress, patient oriented x3 and healthy appearing HENMT: COMMON NORMALS: normocephalic and atraumatic HEAD & SCALP: normocephalic and atraumatic Eye: COMMON NORMALS: Equal, round and reactive pupils present and EOMs intact bilaterally PUPIL: Yes Equal, round and reactive pupils present Neck/C-Spine: COMMON NORMALS: full ROM and supple Chest: COMMONS NORMALS: normal inspection of the chest and normal palpation of entire chest wall Resp: COMMON NORMALS: normal respiratory effort, No retractions, No use of accessory muscles and clear to auscultation bilaterally AUSCULTATION: clear to auscultation bilaterally Cardio: COMMON NORMALS: regular rate, regular rhythm and No murmurs present (Cardio) RATE: regular rate RHYTHM: regular rhythm GI: COMMON NORMALS: Normal to inspection, nondistended, normoactive bowel sounds present, Soft to palpation, non-tender and no masses PALPATION: Yes Soft to palpation Extremity: COMMON NORMALS: normal to inspection and full ROM Neuro: COMMON NORMALS: patient oriented x3, moves all extremities and no focal motor deficits Psych: COMMON NORMALS: mental status grossly normal, Normal thought process present and cooperative THOUGHT PROCESS: Normal thought process present Skin: COMMON NORMALS: no rashes or lesions noted and no wounds GENERAL SKIN EXAM: no rashes or lesions noted Course Vital Signs: Vital signs: Vital Signs Pulse Rate 62 03/19/23 15:24 Respiratory Rate 18 03/19/23 15:24 Blood Pressure 195/91 03/19/23 15:24 Pulse Oximetry 97 03/19/23 15:24 Oxygen Delivery Me thod Room Air 03/19/23 15:24 MDM - Chest Pain Medical Decision Making Patient presents for chest pain pain has improved here initial troponin was at 71 spoke to the hospitalist will admit for ACS rule out. Medical Records I reviewed the patient's medical records. Lab Data I reviewed the patient's lab results. 03/19/23 14:30 03/19/23 14:30 Radiology Impressions Chest X-Ray 03/19/23 13:57 IMPRESSION: 1. No acute cardiopulmonary finding. Laboratory Results WBC 9.1 10^3/uL (4.0-10.0) 03/19/23 14:30 RBC 4.83 10^6/uL (4.1-5.3) 03/19/23 14:30 Hgb 14.6 g/dL (11.5-15.3) 03/19/23 14:30 Hct 45.0 % (37.0-47.0) 03/19/23 14:30 MCV 93.2 fl (81-99) 03/19/23 14: MCH 30.2 pg (28.0-34.0) 03/19/23 14:30 MCHC 32.4 g/dL (30.0-36.0) 03/19/23 14:30 RDW 13.6 % (12.1-15.1) 03/19/23 14:30 Plt Count 299 10^3/cmm (130-400) 03/19/23 14:30 MPV 11.7 fL (7.4-10.4) H 03/19/23 14:30 Neut % (Auto) 66.8 % 03/19/23 14:30 Lymph % (Auto) 23.1 % 03/19/23 14:30 [place] % (Auto) 6.6 % 03/19/23 14:30 Eos % (Auto) 2.4 % 03/19/23 14:30 Baso % (Auto) 0.7 % 03/19/23 14:30 Neut # (Auto) 6.10 10^3/uL (1.8-7.7) 03/19/23 14:30 Lymph # (Auto) 2.1 10^3/uL (0.8-4.8) 03/19/23 14:30 [place] # (Auto) 0.6 10^3/uL (0.2-0.9) 03/19/23 14:30 Eos # (Auto) 0.2 10^3/uL (0.0-0.8) 03/19/23 14:30 Baso # (Auto) 0.1 10^3/uL (0.0-0.1) 03/19/23 14:30 Nucleated RBC % (auto) 0 % 03/19/23 14:30 Nucleated RBCs # 0.0 /100WBC 03/19/23 14:30 PT 12.20 SECONDS (12.1-14.9) 03/19/23 14:30 INR 0.88 (0.8-1.2) 03/19/23 14:30 Sodium 135 mmol/L (136-145) L 03/19/23 14:30 Potassium 4.5 mmol/L (3.5-5.1) 03/19/23 14:30 Chloride 100 mmol/L (98-107) 03/19/23 14:30 Carbon Dioxide 24 mmol/L (22-29) 03/19/23 14:30 Anion Gap 15.5 (5-19) 03/19/23 14:30 BUN 21 mg/dL (8-23) 03/19/23 14:30 Creatinine 0.8 mg/dL (0.5-0.9) 03/19/23 14:30 GFR Calculation Not Reportable 03/19/23 14:30 Glucose 93 mg/dL (65-115) 03/19/23 14:30 Calculated Osmolality 283 mOsm/kg (285-295) L 03/19/23 14:30 Calcium 9.8 mg/dL (8.5-10.5) 03/19/23 14:30 Total Bilirubin 0.5 mg/dL (0.15-1.2) 03/19/23 14:30 AST 18 U/L (0-32) 03/19/23 14:30 ALT 14 U/L (0-33) 03/19/23 14:30 Alkaline Phosphatase 78 U/L (35-105) 03/19/23 14:30 Troponin T Baseline 71 ng/L (0-10) H 03/19/23 14:30 Troponin T 120 Minute 61.19 ng/L (0-10) H 03/19/23 16:30 Delta Troponin T -9.81 ABS# (0-10) L 03/19/23 16:30 Total Protein 7.3 g/dL (6.6-8.7) 03/19/23 14:30 Albumin 4.4 g/dL (3.5-5.2) 03/19/23 14:30 Globulin 2.9 g/dL (1.3-4.6) 03/19/23 14:30 EKG Data EKG 1: I personally reviewed and interpreted this EKG as follows: EKG interpretation date: 03/19/23 EKG interpretation time: 14:04 Interpretation: nsr hr [address] or t wave abnormalities qrs 108 qtc 402 Discharge Plan Discharge Patient Disposition: Admitted As Inpatient Clinical Impression: Chest pain Condition: Stable Coding Level of Care Code ED Die Sinker for Sergio Graham
[2023-03-19] MEDS: aspirin 81 mg Chew Tablet 324 MG PO (14:16)
[2023-03-19 14:45] LABS: Basophils # 0.1 10^3/uL (0.0-0.1); Basophils % 0.7 %; Eosinophils # 0.2 10^3/uL (0.0-0.8); Eosinophils % 2.4 %; Hemoglobin 14.6 g/dL (11.5-15.3); Lymphocytes # 2.1 10^3/uL (0.8-4.8); Lymphocytes % 23.1 %; Mean Corpuscular HGB Conc 32.4 g/dL (30.0-36.0); Mean Corpuscular Hemoglobin 30.2 pg (28.0-34.0); Mean Corpuscular Volume 93.2 fl (81-99); Mean Platelet Volume 11.7 fL (7.4-10.4); Monocytes # 0.6 10^3/uL (0.2-0.9); Monocytes % 6.6 %; Neutrophils % 66.8 %; Nucleated Red Blood Cells % 0 %; Platelet Count 299 10^3/cmm (130-400); Red Blood Count 4.83 10^6/uL (4.1-5.3); Red Cell Distribution Width 13.6 % (12.1-15.1); White Blood Count 9.1 10^3/uL (4.0-10.0)
[2023-03-19 15:03] LABS: INR 0.88 (0.8-1.2)
[2023-03-19 15:05] LABS: Troponin(5th) Baseline 71 ng/L (0-10)
[2023-03-19 15:15] LABS: Alanine Aminotransferase 14 U/L (0-33); Albumin Level 4.4 g/dL (3.5-5.2); Alkaline Phosphatase 78 U/L (35-105); Anion Gap 15.5 (5-19); Aspartate Amino Transferase 18 U/L (0-32); Blood Urea Nitrogen 21 mg/dL (8-23); Calcium 9.8 mg/dL (8.5-10.5); Carbon Dioxide 24 mmol/L (22-29); Chloride 100 mmol/L (98-107); Creatinine Clr Calc Pharmacy 61.8178; Globulin 2.9 g/dL (1.3-4.6); Glucose 93 mg/dL (65-115); Osmolality Calculated 283 mOsm/kg (285-295); Potassium 4.5 mmol/L (3.5-5.1); Sodium 135 mmol/L (136-145); Total Bilirubin 0.5 mg/dL (0.15-1.2); Total Protein 7.3 g/dL (6.6-8.7)
[2023-03-19] MEDS: nitroglycerin 0.4 mg sublingual Tablet SUBLINGUAL (15:24)
--- NOTE | 2023-03-19 15:25 | PC.NURSE ---
PT COMPLAINT OF CHEST PAIN AND TIGHTNESS WORSENING. PATIENT INSTRUCTED ON NITRO USE. PATIENT GIVEN NITRO 1 TAB.
--- NOTE | 2023-03-19 15:43 | ECG_ITS ---
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 Measurements Intervals [place] Rate: 70 P: 50 TX: 184 QRS: -30 QRSD: 88 T: 16 QT: 395 QTc: 428 Interpretive Statements SINUS RHYTHM BORDERLINE LEFT AXIS DEVIATION [QRS AXIS < -20] Compared to ECG 03/19/2023 14:17:16 No significant changes Electronically Signed On 03-20-2023 12:24:27 CDT by Suly Edwards M.D. [id number]
--- NOTE | 2023-03-19 16:47 | P.HP_ITS ---
Providers/Chief Complaint Primary Care Provider: Brittany Ovalles Chief Complaint: Josr sent for chest pressure History of Present Illness Clemencia Garrison is a 77 year old female with past medical history of hypertension, dyslipidemia, chronic dizziness, nonobstructive CAD with angiogram in 2020 for possible non-ST elevation [place]. In the ER today with complaints of ongoing chest heaviness radiating to back and bilateral arms since today morning which has been constant along with heaviness in head. Occasionally symptoms started yesterday but today they have been more persistent. Denies any nausea, vomiting, headache, palpitations. In the ER she was found to have a baseline troponin of 70 with concerns for non- ST elevation [place] hospitalist service was consulted for admission. She has been given 1 full dose of Lovenox, full dose aspirin. Patient states as of now her chest pressures are relieved. Review of Systems General: Reports: 10 or more systems reviewed and unremarkable except in HPI and below Const: Denies: fever(s), chills, body aches, change in appetite, change in weight, malaise, night sweats, diaphoresis, change in sleep pattern, daytime sleepiness or snoring Eyes: Denies: change in vision, blurry vision, photophobia, eye discomfort or eye discharge ENMT: Denies: throat pain, enlarged tonsils, hoarseness, mouth pain, oral sores, dry mouth, tinnitus, nasal congestion or post nasal drip Card: Denies: chest pain, palpitations, irregular heart rhythm, edema, swelling of feet/ankles, lightheadedness, syncope, pre-syncope, dyspnea on exertion, orthopnea, leg pain with exertion or acrocyanosis Resp: Denies: dyspnea, productive cough, non-productive cough, wheezing, stridor, pain on inspiration, change in phlegm color, hemoptysis or chest congestion GI: Denies: abdominal pain, nausea, vomiting, hematemesis, coffee ground emesis, dysphagia, heartburn, diarrhea, constipation, bloating, GI cramping, change in bowel habits, pain on defecation, hematochezia or melena : Denies: flank pain, dysuria, urinary frequency, urinary urgency, urinary hesitancy, nocturia or hematuria Musc: Denies: neck pain, back pain, extremity pain, joint pain, joint swelling, joint redness, joint stiffness or limited range of motion Neuro: Denies: headache(s), numbness in extremities, weakness in extremities, sensory changes, lack of coordination, difficulty walking, frequent falls, dizziness, vertigo, confusion, Slurred speech present, difficulty communicating thoughts or seizure-like activity Psych: Denies: anxiety, depression, mood swings, panic attacks, hopelessness or irritability Endo: Denies: polyuria, polydipsia, tired all the time, cold intolerance, excessive sweating, flushing or heat intolerance Ismael/Lymph: Denies: easy bruising or easy bleeding All/Imm: Denies: tongue swelling, facial swelling or acute wheezing Medications/Allergies Home Medications Medication Instructions Recorded Confirmed Last Taken Type losartan 100 mg tablet 100 mg PO BEDTIME 07/16/21 03/19/23 03/18/23 History ibuprofen 800 mg tablet 800 mg PO TID PRN pain #60 tabs 08/29/21 03/19/23 Unknown Rx aspirin 81 mg tablet,delayed 81 mg PO BEDTIME 12/03/21 03/19/23 03/18/23 History release (Adult Aspirin Regimen) fluticasone propionate 50 1 spray intranasal DAILY 12/12/22 03/19/23 12/11/22 History mcg/actuation nasal spray,suspension (Flonase Allergy Relief) hydrochlorothiazide 12.5 mg capsule 12.5 mg PO QAM 03/19/23 03/19/23 03/18/23 History mupirocin 2 % topical ointment 1 applic topical TID PRN unknown 03/19/23 03/19/23 Unknown History Allergies Allergy/AdvReac Type Severity Reaction Status Date / Time Iodinated Contrast Media Allergy ALGY-Hives Verified 03/19/23 15:06 PFSH Acute PFSH: Medical History (Updated 03/19/23 @ 16:22 by Paris Garcia MD) Aftercare following surgery of the genitourinary system B12 deficiency CAD (coronary artery disease) Cervical osteoarthritis Dizziness of unknown etiology Dyslipidemia Essential hypertension Fatigue History of stroke NSTEMI (non-ST elevated myocardial infarction) Obesity Thickened endometrium Unstable angina Vulvar warts Surgical History History of cataract surgery History of tubal ligation 1980 Status post hysteroscopic polypectomy 08/29/2021- hysteroscopic polypectomy via Myosure, excision of left vulvar wart performed by Dr. Isaacs at [facility] Family History Father No problems noted. Mother No problems noted. Brother Diabetes Hypertension Colon cancer late 40's-early 50's Sister Colon cancer, Onset Age: 60 Denies family history of Ovarian cancer Clotting disorder Heart disease Hyperlipidemia Breast cancer Anesthesia complication Bleeding disorder Uterine cancer Thyroid condition Stroke Social History Smoking and tobacco status: never smoked Alcohol intake: current Alcohol intake frequency: holidays/special occasions only Alcohol type: hard liquor Substance/Drug Use: never Vitals/I&O/Wt Last Vital Signs Pulse 62 03/19/23 15:24 Resp 18 03/19/23 15:24 BP 195/91 03/19/23 15:24 Pulse Ox 97 03/19/23 15:24 O2 Del Method Room Air 03/19/23 15:24 Weight last 48 hrs Weight 86.183 kg Data 03/19/23 14:30 03/19/23 14:30 A&P Assessment and plan (1) Chest pain: Under evaluation. Most likely in setting of non-ST elevation [place]. (2) NSTEMI (non-ST elevated myocardial infarction): Check echocardiogram. Check A1c, lipid panel. Aspirin 81 mg daily, atorvastatin 80 mg daily. Troponin cycled. Full dose Lovenox 1 mg/kg body weight every 12 hourly for now. Nitropatch 0.5 every 6 hours. Plan for Lexiscan stress test in a.m.. N.p.o. after midnight. (3) Essential hypertension: Goal blood pressure less than 140/90 mmHg. Continue home dose of losartan 100 mg daily. Nitropaste as above. Amlodipine 10 mg oral daily. Will uptitrate blood pressure medications as per goal blood pressures. Patient bradycardic so we will hold off on adding beta-los for now. (4) Obstructive sleep apnea: Plan Check TSH, iron panel, vitamin B12, folate, urinalysis. CODE STATUS: Full code. Cardiac diet, n.p.o. after midnight. Famotidine for PUD prophylaxis. Full dose Lovenox will suffice as DVT prophylaxis. Attestations Medical Necessity Statement*: Admit to CSU under observation for possible non-ST elevation [place] in a patient ad mitting with chest pressure Diagnoses Chest pain R07.9 NSTEMI (non-ST elevated myocardial infarction) I21.4 Essential hypertension I10 Obstructive sleep apnea G47.33
[2023-03-19 16:58] LABS: Troponin 5 2HR 61.19 ng/L (0-10)
[2023-03-19] MEDS: ondansetron 2 mg/ML SDV 2 mL 4 MG IVP (17:34)
[2023-03-19] MEDS: morphine 4 mg/mL SDV 1 mL IVP (17:34)
[2023-03-19] MEDS: enoxaparin 80 mg/0.8 mL Syringe 85 MG SUBCUT (17:38)
[2023-03-19] MEDS: amlodipine 10 mg Tablet PO (17:38)
[2023-03-19 17:49] LABS: Iron 112 ug/dL (37-145); Percent Saturation 37.7 % (20-50); Total Iron Binding Capacity 297 mcg/dl; Unsaturated Iron Binding 185 ug/dL (112-347)
[2023-03-19 19:37] LABS: Urine Appearance Hazy (CLEAR); Urine Color Yellow (Yellow)
[2023-03-19 19:38] LABS: Add Urine Microscopic? YES; Bilirubin Urine Neg (Negative); Blood Urine Neg (Negative); Glucose Urine UA Norm (Normal); Ketones Urine Negative (Negative); Leukocyte Esterase Urine 1+ (Negative); Nitrate Urine Negative (Negative); Protein Urine Neg (Negative); RBC Urine 0-4 /hpf (0-2); Urobilinogen Urine Norm (Negative); pH Urine 5 (5-7)
[2023-03-19 19:39] LABS: Add Urine Culture? Yes; Bacteria Urine 2+ /hpf; Mucus Urine 1+ /hpf
[2023-03-19 19:55] LABS: Vitamin B12 468 pg/mL (232-1245)
--- NOTE | 2023-03-19 19:56 | ECG_ITS ---
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 Measurements Intervals [place] Rate: 62 P: -23 [place]: 144 QRS: -20 QRSD: 94 T: 69 QT: 406 QTc: 415 Interpretive Statements SINUS RHYTHM POSSIBLE LATERAL MYOCARDIAL INFARCTION , OF INDETERMINATE AGE [30 ms Q WAVE IN I/aVL/V5/V6] Compared to ECG 03/19/2023 15:43:38 Myocardial infarct finding now present Electronically Signed On 03-20-2023 12:23:29 CDT by Suly Edwards M.D. [id number]
[2023-03-19] MEDS: famotidine 20 mg Tablet PO (20:52)
[2023-03-19 20:59] LABS: Troponin 5 6HR 50.31 ng/L (0-10)
[2023-03-19] MEDS: losartan 50 mg Tablet 100 MG PO (21:37)
[2023-03-19] MEDS: aspirin 81 mg EC Tablet PO (21:38)
[2023-03-20] VITALS (135 sets, daily range): BP systolic 121–128; BP diastolic 64–72; PULSE 53–78; RESP 11–24; TEMP 36.4–36.8; O2SAT 92–100
[2023-03-20 04:47] LABS: Basophils # 0.1 10^3/uL (0.0-0.1); Basophils % 0.6 %; Eosinophils # 0.3 10^3/uL (0.0-0.8); Eosinophils % 3.6 %; Hematocrit 41.7 % (37.0-47.0); Hemoglobin 13.5 g/dL (11.5-15.3); Lymphocytes # 2.3 10^3/uL (0.8-4.8); Lymphocytes % 25.9 %; Mean Corpuscular HGB Conc 32.4 g/dL (30.0-36.0); Mean Corpuscular Hemoglobin 30.4 pg (28.0-34.0); Mean Corpuscular Volume 93.9 fl (81-99); Mean Platelet Volume 11.8 fL (7.4-10.4); Monocytes # 0.6 10^3/uL (0.2-0.9); Monocytes % 6.6 %; Neutrophils # 5.53 10^3/uL (1.8-7.7); Neutrophils % 63.1 %; Nucleated Red Blood Cells % 0 %; Platelet Count 216 10^3/cmm (130-400); Red Blood Count 4.44 10^6/uL (4.1-5.3); Red Cell Distribution Width 13.6 % (12.1-15.1); White Blood Count 8.8 10^3/uL (4.0-10.0)
[2023-03-20 05:03] LABS: Estmated Average Glucose 103; Hemoglobin A1C 5.2 % (4.0-6.0)
[2023-03-20 05:10] LABS: Alanine Aminotransferase 12 U/L (0-33); Albumin Level 3.7 g/dL (3.5-5.2); Alkaline Phosphatase 60 U/L (35-105); Aspartate Amino Transferase 15 U/L (0-32); Blood Urea Nitrogen 24 mg/dL (8-23); Calcium 8.6 mg/dL (8.5-10.5); Carbon Dioxide 22 mmol/L (22-29); Chloride 104 mmol/L (98-107); Globulin 2.8 g/dL (1.3-4.6); Glucose 81 mg/dL (65-115); Osmolality Calculated 283 mOsm/kg (285-295); Phosphorus 3.4 mg/dL (2.5-4.5); Sodium 135 mmol/L (136-145); Total Bilirubin 0.5 mg/dL (0.15-1.2); Total Protein 6.5 g/dL (6.6-8.7)
[2023-03-20 05:12] LABS: Creatinine Clr Calc Pharmacy 49.4542
[2023-03-20 05:26] LABS: Chol HDL Ratio 5.23 mg/dL (0.0-4.40); Cholesterol 225 mg/dL (0-200); HDL Cholesterol 43 mg/dL (60-100); LDL Cholesterol Calculated 156 mg/dL (50-129); LDL HDL Ratio 3.63 RATIO (0.00-3.22); Triglycerides 131 mg/dL (0-150)
--- NOTE | 2023-03-20 06:52 | ECG_ITS ---
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 Interpretive Statements NAME OF STUDY: LEXISCAN SESTAMIBI STRESS TEST INDICATION: [nstemi, ] Procedure: At the baseline, the blood pressure was 115/65 mmHg with a heart rate of 62 bpm. The electrocardiogram showed normal sinus rhythm, normal axis with normal ST and T's. The Lexiscan was infused over a period of 20 seconds. A total of 0.4 mg of Lexiscan was infused. The stress phase was continued for a total of 5 minutes. Heart rate was at the end of stress phase was 77 bpm and a blood pressure of 130/69 mmHg. The EKG at the peak infusion revealed normal sinus rhythm with no significant ST-T wave changes. Sestamibi was injected 20 seconds after the Lexiscan infusion. Blood pressure at the end of recovery phase was 125/64 mmHg with a heart rate of 73 bpm. Conclusion: 1. Normal EKG response to Lexiscan infusion 2. No Lexiscan induced chest pain or cardiac arrhythmia. 3. Normal blood pressure and heart rate response. 4. Sestamibi/sestamibi perfusion scan pending; see separate report. Electronically Signed On 03-22-2023 14:34:14 CDT by Robin Torrez M.D. [id number]
[2023-03-20] MEDS: regadenoson 0.4 Mg/5 ml Syringe IVP (07:29)
--- NOTE | 2023-03-20 08:00 | NMCV_ITS ---
NM radha perf SPECT r/s* [id number] Clemencia Garrison Age: 77 Gender: F : 1945 Exam Date: 03/20/2023 06:35 Ordering Phys: Lance Simmons MD Technologist: JED Chance Exam Location: [facility] Indications: CHEST PAIN STRESS TEST Please see separate stress test report in [facility] for full findings IMAGE PROTOCOL Rest/Stress 1 Lexiscan Day Radiopharmaceutical Dose (mCi) Administration Site Administered by Rest: Tc-99m 10.9 IV JED Barron Sestamibi Stress:Tc-99m 32.9 IV JED Barron Sestamibi Rest: 20-Mar-2023 60 Discovery 630 Stress: 20-Mar-2023 30 Discovery 630 0.4mg Lexiscan. Supine position only as patient was unable to lay prone. SPECT RESULTS Technical Quality: Excellent Raw Data Analysis: Normal Image Corrections: No attenuation or motion correction applied Summed Stress Score: 2 Summed Rest Score: 2 Summed Difference Score: 0 PERFUSION FINDINGS There is a small in size fixed perfusion defect noted in apical lateral and inferolateral wall. This is consistent with small sized prior infarct in left circumflex artery territory with no evidence of ischemia. FUNCTIONAL RESULTS (calculated via Gated SPECT) Stress Image LV EF (%): 83 Stress EDV (mL):66 TID: 0.86 Stress ESV (mL):11 FUNCTIONAL FINDINGS: There is normal left ventricular systolic function. IMPRESSIONS 1. Small sized area of prior infarct seen in left circumflex artery territory. No evidence of ischemia. 2. LV systolic function is normal. Robin Torrez MD (Electronically Signed) Final Date: 20 March 2023 08:43 S
--- NOTE | 2023-03-20 08:04 | USCV_ITS ---
Clemencia Garrison Age: 77 Gender: F : 1945 Exam Date: 03/20/2023 10:44 Ordering Phys: Lance Simmons MD Technologist: Soto Evans Exam Location: [facility] Indication: nstemi BP: 117 / 62 HR: 65 Rhythm: Sinus Technical Quality: Adequate MEASUREMENTS (Male / Female) Normal Values 2D ECHO LV Diastolic Diameter PLAX 4.6 cm 4.2 - 5.9 / 3.9 - 5.3 cm LV Systolic Diameter PLAX 2.1 cm IVS Diastolic Thickness 1.3 cm 0.6 - 1.0 / 0.6 - 0.9 cm IVS Systolic Thickness 1.8 cm LVPW Diastolic Thickness 1.2 cm 0.6 - 1.0 / 0.6 - 0.9 cm LVPW Systolic Thickness 1.7 cm LVOT Diameter 2.0 cm LV Ejection Fraction 2D Teich 84.4 % LV Ejection Fraction MOD 2C 65.8 % LV Ejection Fraction 2C AL 67.2 % LA Diameter 4.8 cm IVC Diameter 1.6 cm M-MODE Aortic Annulus Diameter 3.3 cm LA Ao Ratio MM 1.5 MV E Point Septal Separation 0.7 cm DOPPLER AV Peak Velocity 162.0 cm/s LVOT Peak Velocity 161.0 cm/s AV Area Cont Eq vti 2.9 cm squared AV Area Cont Eq pk 3.2 cm squared MV Area PHT 2.7 cm squared Mitral E to A Ratio 0.9 MV E' Velocity 48.5 cm/s Mitral E to MV E' Ratio 15.3 Mitral E to LV E' Lateral Ratio 12.5 Mitral E to LV E' Septal Ratio 19.6 TR Peak Velocity 158.3 cm/s TR Peak Gradient 10.0 mmHg TV Peak E Velocity 109.0 cm/s Right Atrial Pressure 3.0 mmHg Pulmonary Artery Systolic Pressu 13.0 mmHg RV Acceleration Time 0.1 s FINDINGS Left Ventricle Left ventricle is normal in size. Left ventricular systolic function is normal with EF 55 to 60%. No regional wall motion abnormalities are seen. Grade 1 diastolic dysfunction Right Ventricle Normal in size and function Right Atrium Normal in size Left Atrium Dilated Mitral Valve Moderate mitral annular calcification. Mild mitral regurgitation. Aortic Valve Structurally normal aortic valve. No significant stenosis or regurgitation. Tricuspid Valve Mild tricuspid regurgitation. Insufficient TR jet to calculate RVSP Pulmonic Valve Not well visualized Pericardium Normal Aorta Normal in size IVC Appears to be normal CONCLUSIONS LV systolic function is normal with EF 55 to 60%. Grade 1 diastolic dysfunction Left atrial dilation Mild mitral regurgitation Mild tricuspid regurgitation Compared to prior echocardiogram from 2021, no significant changes are seen Robin Torrez MD (Electronically Signed) Final Date: 20 March 2023 17:30 S
[2023-03-20] MEDS: acetaminophen 325 mg Tablet 650 MG PO ×2 (08:44→17:55)
[2023-03-20] MEDS: famotidine 20 mg Tablet PO ×2 (08:45→17:55)
[2023-03-20] MEDS: amlodipine 5 mg Tablet PO (08:47)
--- NOTE | 2023-03-20 09:45 | PM.DCS ---
Discharge Providers Date of Admission: 03/19/23 17:30 Date of Discharge: March 20, 2023 Attending Provider at Admission: Lance Simmons MD Attending Provider at Discharge: Lance Simmons MD Primary Care Provider: Brittany Ovalles Diagnoses at Discharge Discharge Diagnosis (1) Chest pain: Status: Acute (2) NSTEMI (non-ST elevated myocardial infarction): Status: Acute (3) Essential hypertension: Status: Acute (4) Obstructive sleep apnea: Status: Acute Reason for Visit Reason for Visit: Josr sent for chest pressure Brief History: Clemencia Garrison is a 77 year old female with past medical history of hypertension, dyslipidemia, chronic dizziness, nonobstructive CAD with angiogram in 2019 for possible non-ST elevation [place].? In the ER today with complaints of ongoing chest heaviness radiating to back and bilateral arms since today morning which has been constant along with heaviness in head.? Occasionally symptoms started yesterday but today they have been more persistent.? Denies any nausea, vomiting, headache, palpitations. In the ER she was found to have a baseline troponin of 70 with concerns for non-ST elevation [place] hospitalist service was consulted for admission.? She has been given 1 full dose of Lovenox, full dose aspirin.? Patient states as of now her chest pressures are relieved. Hospital Course Hospital Course Patient was sent to the hospital for chest pain rule out with concerns for non-ST elevation [place]. Troponin cycle was negative and downtrending. Patient did not have any further chest pain during hospitalization. Antihypertensives were adjusted and blood pressures remained stable. She underwent Lexiscan stress test which showed old infarct without ischemia. Echocardiogram has been done. She has been discharged hemodynamically stable condition on added amlodipine 5 mg daily, atorvastatin 40 mg daily. She is to check her blood pressure daily at home and maintain a blood pressure diary and follow-up with a primary care provider in 2 weeks for further adjustments of antihypertensives. She is to get a repeat lipid panel in 6 months. Physical Exam Narrative: General: No acute distress, AO x3 HEENT: PERRLA, pupils bilaterally equal and reactive Chest: Normal vesicular breath sounds, no added sounds, equal good air entry bilaterally CVS: S1-S2 regular, no murmurs, no tachycardia, no gallops, no rubs Abdomen: Soft, nontender, no organomegaly, bowel sounds present Neuro: No focal deficits, no facial deformity, AO x3, power 5/5 in all limbs Discharge Data Studies Completed and Pending Completed Studies During Hospitalization Category Date Time Status CXRP [XR chest 1V portable [id number]] Stat Exams 03/19/23 13:57 Completed Sestamibi Stress Test Request Routine Exams 03/20/23 06:52 Draft NM radha perf SPECT r/s* [id number] Routine Nuc Med 03/20/23 08:00 Completed Pending at discharge Category Date Time Status Sestamibi Stress Test Request Routine Exams 03/19/23 20:05 Stop Req Urine Culture Routine Lab 03/19/23 17:48 Received CV. echo complete* [id number] Routine Ultrasound 03/20/23 08:04 Ordered Radiology Impressions Chest X-Ray 03/19/23 13:57 IMPRESSION: 1. No acute cardiopulmonary finding. Lexiscan Stess test: PERFUSION FINDINGS ?There is a small in size fixed perfusion defect noted in apical lateral and ?inferolateral wall.? This is consistent with small sized prior infarct in left?circumflex artery territory with no evidence of ischemia. ?FUNCTIONAL RESULTS ? ? (calculated via Gated SPECT) ? Stress Image LV EF (%):? ? 83 ? Stress EDV (mL):66 ? TID:? 0.86 ? Stress ESV (mL):11 ?FUNCTIONAL FINDINGS: ?There is normal left ventricular systolic function. ?IMPRESSIONS ?1.? Small sized area of prior infarct seen in left circumflex artery territory.? ?No evidence of ischemia. ?2.? LV systolic function is normal. ?Robin Torrez MD ?(Electronically Signed) ?Final Date:? ? ? 20 March 2023 ? 08:43 Laboratory Results WBC 8.8 10^3/uL (4.0-10.0) 03/20/23 04:31 RBC 4.44 10^6/uL (4.1-5.3) 03/20/23 04:31 Hgb 13.5 g/dL (11.5-15.3) 03/20/23 04:31 Hct 41.7 % (37.0-47.0) 03/20/23 04:31 MCV 93.9 fl (81-99) 03/20/23 04:31 MCH 30.4 pg (28.0-34.0) 03/20/23 04:31 MCHC 32.4 g/dL (30.0-36.0) 03/20/23 04:31 RDW 13.6 % (12.1-15.1) 03/20/23 04:31 Plt Count 216 10^3/cmm (130-400) 03/20/23 04:31 MPV 11.8 fL (7.4-10.4) H 03/20/23 04:31 Neut % (Auto) 63.1 % 03/20/23 04:31 Lymph % (Auto) 25.9 % 03/20/23 04:31 [place] % (Auto) 6.6 % 03/20/23 04:31 Eos % (Auto) 3.6 % 03/20/23 04:31 Baso % (Auto) 0.6 % 03/20/23 04:31 Neut # (Auto) 5.53 10^3/uL (1.8-7.7) 03/20/23 04:31 Lymph # (Auto) 2.3 10^3/uL (0.8-4.8) 03/20/23 04:31 [place] # (Auto) 0.6 10^3/uL (0.2-0.9) 03/20/23 04:31 Eos # (Auto) 0.3 10^3/uL (0.0-0.8) 03/20/23 04:31 Baso # (Auto) 0.1 10^3/uL (0.0-0.1) 03/20/23 04:31 Nucleated RBC % (auto) 0 % 03/20/23 04:31 Nucleated RBCs # 0.0 /100WBC 03/20/23 04:31 PT 12.20 SECONDS (12.1-14.9) 03/19/23 14:30 INR 0.88 (0.8-1.2) 03/19/23 14:30 Sodium 135 mmol/L (136-145) L 03/20/23 04:31 Potassium 4.0 mmol/L (3.5-5.1) 03/20/23 04:31 Chloride 104 mmol/L (98-107) 03/20/23 04:31 Carbon Dioxide 22 mmol/L (22-29) 03/20/23 04:31 Anion Gap 13.0 (5-19) 03/20/23 04:31 BUN 24 mg/dL (8-23) H 03/20/23 04:31 Creatinine 1.0 mg/dL (0.5-0.9) H 03/20/23 04:31 GFR Calculation Not Reportable 03/20/23 04:31 Glucose 81 mg/dL (65-115) 03/20/23 04:31 Estimat Average Glucose 103 03/20/23 04:31 Hemoglobin A1c 5.2 % (4.0-6.0) 03/20/23 04:31 Calculated Osmolality 283 mOsm/kg (285-295) L 03/20/23 04:31 Calcium 8.6 mg/dL (8.5-10.5) 03/20/23 04:31 Phosphorus 3.4 mg/dL (2.5-4.5) 03/20/23 04:31 Magnesium 2.0 mg/dL (1.7-2.3) 03/20/23 04:31 Iron 112 ug/dL (37-145) 03/19/23 14:30 TIBC 297 mcg/dl 03/19/23 14:30 % Saturation 37.7 % (20-50) 03/19/23 14:30 Unsat Iron Binding 185 ug/dL (112-347) 03/19/23 14:30 Total Bilirubin 0.5 mg/dL (0.15-1.2) 03/20/23 04:31 AST 15 U/L (0-32) 03/20/23 04:31 ALT 12 U/L (0-33) 03/20/23 04:31 Alkaline Phosphatase 60 U/L (35-105) 03/20/23 04:31 Troponin T Baseline 71 ng/L (0-10) H 03/19/23 14:30 Troponin T 120 Minute 61.19 ng/L (0-10) H 03/19/23 16:30 Delta Troponin T -9.81 ABS# (0-10) L 03/19/23 16:30 Troponin T Hi Sens 6Hr 50.31 ng/L (0-10) H 03/19/23 20:38 Troponin T Hi Sens 6Hr Delta -20.69 ng/L (0-12) L 03/19/23 20:38 Total Protein 6.5 g/dL (6.6-8.7) L 03/20/23 04:31 Albumin 3.7 g/dL (3.5-5.2) 03/20/23 04:31 Globulin 2.8 g/dL (1.3-4.6) 03/20/23 04:31 Triglycerides 131 mg/dL (0-150) 03/20/23 04:31 Cholesterol 225 mg/dL (0-200) H 03/20/23 04:31 LDL Cholesterol, Calc 156 mg/dL (50-129) H 03/20/23 04:31 HDL Cholesterol 43 mg/dL (60-100) L 03/20/23 04:31 LDL/HDL Ratio 3.63 RATIO (0.00-3.22) H 03/20/23 04:31 Cholesterol/HDL Ratio 5.23 mg/dL (0.0-4.40) H 03/20/23 04:31 Vitamin B12 468 pg/mL (232-1245) 03/19/23 16:30 Folate 7.0 ng/mL (4.8-37.3) 03/20/23 04:31 TSH 3.70 uIU/mL (0.27-4.20) 03/19/23 14:30 Urine Color Yellow (Yellow) 03/19/23 17:48 Urine Appearance Hazy (CLEAR) A 03/19/23 17:48 Urine pH 5 (5-7) 03/19/23 17:48 Ur Specific [place] 1.020 (1.005-1.030) 03/19/23 17:48 Urine Protein Neg (Negative) 03/19/23 17:48 Urine Glucose (UA) Norm (Normal) 03/19/23 17:48 Urine Ketones Negative (Negative) 03/19/23 17:48 Urine Blood Neg (Negative) 03/19/23 17:48 Urine Nitrate Negative (Negative) 03/19/23 17:48 Urine Bilirubin Neg (Negative) 03/19/23 17:48 Urine Urobilinogen Norm mg/dL (Negative) 03/19/23 17:48 Ur Leukocyte Esterase 1+ (Negative) H 03/19/23 17:48 Urine RBC 0-4 /hpf (0-2) H 03/19/23 17:48 Urine WBC 10-15 /hpf (0-5) H 03/19/23 17:48 Ur Squamous Epith Cells 5-10 /hpf (0-5) H 03/19/23 17:48 Amorphous Sediment Not Reportable 03/19/23 17:48 Urine Bacteria 2+ /hpf (NONE) H 03/19/23 17:48 Urine Mucus 1+ /hpf 03/19/23 17:48 Vitals Last Vital Signs Temp 97.6 F 03/20/23 04:00 Pulse 65 03/20/23 08:25 Resp 14 03/20/23 06:45 BP 128/71 03/20/23 08:25 Pulse Ox 94 03/20/23 08:25 O2 Del Method Room Air 03/19/23 20:53 Discharge Plan Discharge Patient Disposition: Home Condition: Stable Prescriptions: New famotidine 20 mg Tablet 20 mg PO BID Qty: 60 0RF amlodipine 5 mg Tablet 5 mg PO DAILY Qty: 30 0RF atorvastatin 40 mg tablet 40 mg PO DAILY Qty: 30 0RF Continued losartan 100 mg tablet 100 mg PO BEDTIME aspirin [Adult Aspirin Regimen] 81 mg tablet,delayed release (DR/EC) 81 mg PO BEDTIME fluticasone propionate [Flonase Allergy Relief] 50 mcg/actuation spray,suspension 1 spray INTRANASAL DAILY hydrochlorothiazide 12.5 mg capsule 12.5 mg PO QAM mupirocin 2 % ointment 1 applic TOPICAL TID PRN (Reason: unknown) Discontinued ibuprofen 800 mg tablet 800 mg PO TID PRN (Reason: pain) Qty: 60 0RF Discharge Orders: Discharge Order (Routine); Ordered 03/20/23 Ordered By: Lance Simmons Referrals: Brittany Ovalles PA [Primary Care Provider] - 2 weeks Discharge Diet: Cardiac Discharge Activity: Resume usual activity and Increase activity as tolerated Patient Instructions: Opioid Safety Activity Restrictions/Additional Instructions: Check blood pressure daily at home and maintain an blood pressure diary and follow up with your PCP in next 2 weeks for further adjustment of your blood pressure meds. Amlodipine 5 mg once daily has been added for high blood pressure. Atorvastatin has been added added for your high cholesterol Discharge Attestations Time Spent in Discharge Care*: greater than 30 min Specific Discharge Activities: educating patient, discussing with pcp/other providers, discussing with patient case manager/social workers/dc planners, documenting/other paperwork and evaluating patient/reviewing data Status at Discharge: Cognitive status at discharge: cognitively intact, Behavioral status at discharge: cooperative, Functional status at discharge: independent ambulation, Overall status at discharge: patient is back to baseline Quality Metrics Clinical Quality Measures [ No reported AMI, CVA or VTE this stay] Coding Level of Care Code 70779 Total time (in minutes) for Discharge: 50 Diagnoses Chest pain R07.9 NSTEMI (non-ST elevated myocardial infarction) I21.4 Essential hypertension I10 Obstructive sleep apnea G47.33
--- NOTE | 2023-03-20 10:52 | PC.CHAP ---
Pastoral Care Encounter/Spiritual Assessment Type of Contact [x] Declined solar energy consultant and designer visit [] Patient/Family/Request visit [] Outpatient visit [] Follow-up visit [] Physician referral [] Code/Alert [] Routine visit [] Staff referral [] Actively dying [] Patient sleeping [] Family support [] [] Out of room [] Palliative care [] [] Receiving care in room [] Pre-surgical visit [] Trauma [] Long length of stay [] ICU visit [] Other: Relational/Emotional Strength [] Patient feels connected with others/family/visitors/staff [] Distress [] Loneliness/isolation [] Abandonment Spirituality of Patient [] Person of Stacey [] Attends Mandaeism of their Stacey [] Believes in Prayer [] Reads Bible or Zoroastrian materials [] There are Spiritual issues to be addressed 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 Interventions [] Prayer [] Active listening [] Non-anxious presence [] Spiritual/emotional support [] Crisis/trauma care [] Spiritual counseling [] Bereavement support [] Provided bereavement packet [] Provided Bible/devotional materials [] Provided toy/stuffed animal, coloring book to patient or family member [] Provided Communion [] Anointing/[place] [] Salvation [] Completed spiritual assessment [] Other: Impact on Illness or Injury [] Angry [] Fearful [] Anxious [] Often cries [] Exhaustion [] Unable to work [] Unable to attend mormonism [] Unable to walk/stand [] Unable to read [] Unable to drive [] Unable to eat/drink [] Unable to sleep [] Unable to be with family [] Patient intubated [] Other: Summary Declined solar energy consultant and designer visit Time spent with patient 5 mins
--- NOTE | 2023-03-20 13:57 | CT_ITS ---
WS: [id number] CT chest wo con [id number] HISTORY: chest pain TECHNIQUE: Axial imaging performed through the thorax. Coronal and sagittal reformats are submitted. All CT scans at [facility] use at least one of these dose optimization techniques: automated exposure control; mA and/or kV adjustment per patient size (includes targeted exams where dose is mat ched to clinical indication); or iterative reconstruction. CONTRAST: None DLP: 522.63 mGy.cm COMPARISON: 08/23/2019, chest radiograph 03/19/2023 Lungs and central airway: Normal. Pleura: Normal. No pleural effusion. Heart and pericardium: Cardiomegaly. Heavy calcification along the mitral annular valve plane. Mediastinum and jennifer: No mediastinum or hilar adenopathy. Vessels: Normal size aortic and pulmonary artery. No coronary artery calcifications. Chest wall and lower neck: No soft tissue masses. Upper abdomen: Scattered low-attenuation masses in the liver have been previously described as cysts. No adrenal mass. Osseous structures: No destructive process. CT/CT chest wo con [id number] IMPRESSION: 1. No pneumonia. No pneumothorax. 2. No adenopathy. 3. Mild cardiomegaly. Mitral annular valve calcification. 4. Hepatic cysts.
[2023-03-20] MEDS: nitroglycerin 1 gm/inch oint Pkt 0.5 INCH TOPICAL (13:58)
[2023-03-20] MEDS: sodium chloride 0.9% 1,000 ML 50 ML IV (14:01)
--- NOTE | 2023-03-20 14:09 | PC.NURSE ---
ongoing chest tightness and heaviness rated scale is 2 out of 10. Pt stated it is still there and did not went away. hospitalist notified. received orders to get chest ct scan w/o contrast and 0.5 mg of nitro patch once. keep monitoring.
--- NOTE | 2023-03-20 16:19 | P.CONIM_ITS ---
Providers/Reason For Consult Consulting Physician/Specialty*: Robin Torrez MD/ Cardiology Reason for Consult*: Worsening angina Requesting Physician: Dr Simmons Attending Physician: Lance Simmons MD Primary Care Provider: Brittany Ovalles History of Present Illness History of Present Illness Clemencia Garrison is a 77 year old female with past medical history of hypertension who has presented to hospital with chest pain symptoms on and off for the last 2 days. Feels like pressure. Radiates to the arms. No prior stents. Blood pressure is controlled. Initial troponin was elevated at 71 and has trended down. EKG not showing ischemic changes. Stress test showed perfusion abnormality in left circumflex artery territory but no significant ischemia was seen. Patient continues having typical on and off pain that is radiating to the arms. Review of Systems General: Reports: 10 or more systems reviewed and unremarkable except in HPI and below Const: Denies: fever(s), chills, body aches, change in appetite, change in weight, malaise, night sweats, diaphoresis, change in sleep pattern, daytime sleepiness or snoring Eyes: Denies: change in vision, blurry vision, photophobia, eye discomfort or eye discharge ENMT: Denies: throat pain, enlarged tonsils, hoarseness, mouth pain, oral sores, dry mouth, tinnitus, nasal congestion or post nasal drip Card: Reports: chest pain; Denies: palpitations, irregular heart rhythm, edema, swelling of feet/ankles, lightheadedness, syncope, pre-syncope, dyspnea on exertion, orthopnea, leg pain with exertion or acrocyanosis Resp: Denies: dyspnea, productive cough, non-productive cough, wheezing, stridor, pain on inspiration, change in phlegm color, hemoptysis or chest congestion GI: Denies: abdominal pain, nausea, vomiting, hematemesis, coffee ground emesis, dysphagia, heartburn, diarrhea, constipation, bloating, GI cramping, change in bowel habits, pain on defecation, hematochezia or melena : Denies: flank pain, dysuria, urinary frequency, urinary urgency, urinary hesitancy, nocturia or hematuria Musc: Denies: neck pain, back pain, extremity pain, joint pain, joint swelling, joint redness, joint stiffness or limited range of motion Neuro: Denies: headache(s), numbness in extremities, weakness in extremities, sensory changes, lack of coordination, difficulty walking, frequent falls, dizziness, vertigo, confusion, Slurred speech present, difficulty communicating thoughts or seizure-like activity Psych: Denies: anxiety, depression, mood swings, panic attacks, hopelessness or irritability Endo: Denies: polyuria, polydipsia, tired all the time, cold intolerance, excessive sweating, flushing or heat intolerance Ismael/Lymph: Denies: easy bruising or easy bleeding All/Imm: Denies: tongue swelling, facial swelling or acute wheezing Medications/Allergies Home Medications Medication Instructions Recorded Confirmed Last Taken Type losartan 100 mg tablet 100 mg PO BEDTIME 07/16/21 03/19/23 03/18/23 History aspirin 81 mg tablet,delayed 81 mg PO BEDTIME 12/03/21 03/19/23 03/18/23 History release (Adult Aspirin Regimen) fluticasone propionate 50 1 spray intranasal DAILY 12/12/22 03/19/23 12/11/22 History mcg/actuation nasal spray,suspension (Flonase Allergy Relief) hydrochlorothiazide 12.5 mg capsule 12.5 mg PO QAM 03/19/23 03/19/23 03/18/23 History mupirocin 2 % topical ointment 1 applic topical TID PRN unknown 03/19/23 03/19/23 Unknown History amlodipine 5 mg tablet 5 mg PO DAILY #30 tabs 03/20/23 Unknown Rx atorvastatin 40 mg tablet 40 mg PO DAILY #30 tabs 03/20/23 Unknown Rx famotidine 20 mg tablet 20 mg PO BID #60 tabs 03/20/23 Unknown Rx Allergies Allergy/AdvReac Type Severity Reaction Status Date / Time Iodinated Contrast Media Allergy ALGY-Hives Verified 03/19/23 15:06 Current Medications Generic Name Dose Route Start Last Admin Trade Name Freq PRN Reason Stop Dose Admin Acetaminophen 650 mg 03/19/23 18:47 03/20/23 08:44 Acetaminophen 325 Mg Tablet PO 650 mg Q6H PRN Administration Mild/Mod Pain Or Temp >/= 101 Amlodipine Besylate 5 mg 03/20/23 09:00 03/20/23 08:47 Amlodipine 5 Mg Tablet PO 5 mg DAILY TANISHA Administration Aspirin 81 mg 03/19/23 21:00 03/19/23 21:38 Aspirin 81 Mg Ec Tablet PO 81 mg BEDTIME TANISHA Administration Famotidine 20 mg 03/19/23 18:47 03/20/23 08:45 Famotidine 20 Mg Tablet PO 20 mg BID TANISHA Administration Sodium Chloride 1,000 mls @ 50 mls/hr 03/20/23 13:00 03/20/23 14:01 Sodium Chloride 0.9% IV 50 mls/hr .Q20H TANISHA Administration Losartan Potassium 100 mg 03/19/23 21:00 03/19/23 21:37 Losartan 50 Mg Tablet PO 100 mg BEDTIME TANISHA Administration Nitroglycerin 0.4 mg 03/19/23 14:00 03/19/23 15:24 Nitroglycerin 0.4 Mg Sublingual Tablet SUBLINGUAL 0.4 mg Q5M PRN Administration CHEST PAIN Nitroglycerin 0.5 inch 03/20/23 13:00 03/20/23 13:58 Nitroglycerin 1 Gm/Inch Oint Pkt TOPICAL 0.5 inch ONCE TANISHA Administration PFSH Acute PFSH: Medical History Aftercare following surgery of the genitourinary system B12 deficiency CAD (coronary artery disease) Cervical osteoarthritis Dizziness of unknown etiology Dyslipidemia Essential hypertension Fatigue History of stroke NSTEMI (non-ST elevated myocardial infarction) Obesity Thickened endometrium Unstable angina Vulvar warts Surgical History History of cataract surgery History of tubal ligation 1980 Status post hysteroscopic polypectomy 08/29/2021- hysteroscopic polypectomy via Myosure, excision of left vulvar wart performed by Dr. Isaacs at [facility] Family History Father No problems noted. Mother No problems noted. Brother Diabetes Hypertension Colon cancer late 40's-early 50's Sister Colon cancer, Onset Age: 60 Denies family history of Ovarian cancer Clotting disorder Heart disease Hyperlipidemia Breast cancer Anesthesia complication Bleeding disorder Uterine cancer Thyroid condition Stroke Social History Smoking and tobacco status: never smoked Alcohol intake: current Alcohol intake frequency: holidays/special occasions only Alcohol type: hard liquor Substance/Drug Use: never Vitals/I&O/Wt Last Vital Signs Temp 98.2 F 03/20/23 14:34 Pulse 68 03/20/23 14:34 Resp 17 03/20/23 14:34 BP 121/69 03/20/23 14:34 Pulse Ox 95 03/20/23 14:34 O2 Del Method Room Air 03/20/23 14:34 03/20/23 03/20/23 03/20/23 06:59 14:59 22:59 Intake Total 554 / 554 Balance 554 / 554 Weight last 48 hrs Weight 190 lb Physical Exam Narrative: GENERAL: Patient is alert, awake and oriented x3. [] NECK: No jugular vein distension. [] HEENT: No cyanosis. No icterus. No pallor. [] HEART: Regular S1 and S2. No murmur, rub or gallop. [] LUNGS: Clear to auscultate bilaterally. [] CENTRAL NERVOUS SYSTEM: Grossly nonfocal. [] EXTREMITIES: Lower extremities with 1+ edema bilaterally. Pulses palpable in the lower extremities, both dorsalis pedis and posterior tibial. [] Data 03/20/23 04:31 03/20/23 04:31 Micro: Microbiology 03/19/23 17:48 Urine Culture - Preliminary Urine,Clean Catch A&P Assessment and plan (1) Chest pain: (2) NSTEMI (non-ST elevated myocardial infarction): (3) Dyslipidemia: (4) Obstructive sleep apnea: (5) Fatigue: Qualifiers: Fatigue type: other Qualified Code(s): R53.83 - Other fatigue Plan Patient's chest pain symptoms are typical. Had significant troponin elevation on admission. Findings consistent with non-ST elevation [place]. Although stress test not showing significant area of ischemia, given continued typical presentation with troponin elevation, we will proceed with coronary angiogram. Risks and benefits of the procedure have been discussed. Patient understands the risks and benefits and wants to proceed. Continue aspirin. N.p.o. past midnight. Echo ordered. Thank you for involving us with care of this patient. We will continue to follow. Please call with questions. Consult Attestations Medical Necessity Statement: Care expected to cross 2 midnights. Coding Level of Care Code Acute Code for [facility] Diagnoses Chest pain R07.9 NSTEMI (non-ST elevated myocardial infarction) I21.4 Dyslipidemia E78.5 Obstructive sleep apnea G47.33 Fatigue R53.83 Fatigue type: other
[2023-03-20] MEDS: predniSONE 20 mg Tablet 40 MG PO ×2 (17:54→23:25)
[2023-03-20] MEDS: atorvastatin 40 mg Tablet PO (20:16)
[2023-03-20] MEDS: losartan 50 mg Tablet 100 MG PO (20:16)
[2023-03-20] MEDS: aspirin 81 mg EC Tablet PO (20:16)
[2023-03-21] VITALS (17 sets, daily range): BP systolic 122–169; BP diastolic 62–110; PULSE 59–98; RESP 17–24; TEMP 36.4–37.1; O2SAT 93–99
[2023-03-21] MEDS: diphenhydrAMINE 50 mg Capsule PO (05:03)
[2023-03-21] MEDS: predniSONE 20 mg Tablet 40 MG PO (05:03)
[2023-03-21] MEDS: sodium chloride 0.9% 1,000 ML 50 ML IV ×2 (05:05→10:36)
--- NOTE | 2023-03-21 06:08 | XACV_ITS ---
Exam Room: 2 Ht: 165 cm Wt: 86 kg BSA: 2.02 m2 Gender: Female : 1945 Any Known Allergies: Contrast Exam Priority: Routine Procedure(s): Procedure Description: Diagnostic procedure Procedure Description: PCI procedure Procedure Description: Drug Eluting Coronary Stent Procedure Description: Miscellaneous Procedure Description: ACT Procedure Description: Coronary Angiography Diagnostic Cath Status: Urgent Diagnostic Findings * INDICATION: NSTEMI. * Right Coronary Artery has no significant disease. * Distal Circumflex: severe, hazy 70% stenosis, CHER: 3 flow. * Left Main has no disease. * Left Anterior Descending has no disease. * Coronary angiography shows right dominance. PCI Status: Urgent PCI Indication: NSTE - ACS Interventional Findings * Procedure detail: We engaged left main artery with XB 3 guide catheter. IV heparin was administered to maintain anticoagulation. 0.014 run-through guidewire was used to cross the stenosis. We then proceeded with placing 2.75 x 15 mm resolute Dwight drug-eluting stent. At this time final angiogram was performed that showed excellent stent expansion, CHER 3 flow and no residual stenosis. Guide wire and guide catheters were removed. Patient left the cardiac catheterization technician in a stable condition. . * Distal Circumflex: 70% stenosis treated with a MDT R DWIGHT 2.75X15 MARK. 0% residual stenosis, CHER: 3 flow. Conclusions 1. 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 2. Distal Circumflex was treated with a Drug Eluting Stent. Recommendations * Dual antiplatelet therapy for atleast 1 year. * High intensity statin therapy. * Outpatient cardiology follow up in 2-4 weeks. Interventional RX Recommendation: PCI w/o planned CABG Diagnostic RX Recommendation: PCI w/o planned CABG Anticoagulation: Heparin Pressures Phase:Rest AO : 114 / 91 ( 104 ) @ 7:37:00 AM 166 / 69 ( 112 ) @ 7:46:00 AM Clinical Evaluation EBL: 5mL-10mL Procedural Details Pre-Procedure Time Out. Identified patient by full name and date of as verbalized by the patient/guarantor. Does the consent match the physician's order: Yes. Accurate & Complete Informed Consent: Yes. Inpatient/Outpatient History & Physical on Chart: Yes. If H&P is completed, is and addenduem needed: No; If yes, is the addendum complete: N/A. Visualize and Verify Site with Patient/Guarantor: N/A. Relevant Radiology Images available: N/A. Pre-op teaching completed and patient verbalized understanding. The risks, benefits, and alternatives of sedation and/or procedure were discussed by physician. The patient agrees to continue. Procedure started. [facility] Clinical Fraility Score: 3: Managing Well. Behavioral Health Specialist Indications: Worsening Angina. Chest Pain Symptom Assessment: Typical Angina Symptoms. Correct patient, site and procedure confirmed by cath team. Current diagnosis: Chest Pain. PERRLA. Strong, equal hand ash conveyor operator bilaterally. Lungs clear x 5 lobes. IV Site on Arrival: 20 gauge in the right forearm. IV Fluids: 0.9% NaCl at 75ml/hr. 800 mL infused prior to cardiac catheterization technician. Pre Procedural Pulses: bilateral posterior tibial was 2+. Pre Procedural Pulses: bilateral dorsalis pedis was 2+. Oxygen started at 2liters/min via nasal canula. right groin was prepped with chloroprep then draped in the usual sterile fashion. right radial was prepped with chloroprep then draped in the usual sterile fashion. Physician notified. Baseline sample Acquired. HR: 70 BPM. Physician arrived. Admit Source: In Patient. Physician scrubbed in. Immediate Pre-Procedure Time Out. Correct Patient: Yes; Correct Procedure: Yes; Correct Site: Yes; Correct Patient Position: Yes; Correct Supplies: Yes; Dried Flammable Prep: Yes; Blood Products Available: Yes;. Lidocaine 1% infiltrated to the right radial. Arterial access obtained. A 5 [place] TIG catheter in over wire. Catheter redirected to the RCA. Multiple views taken of right coronary artery. Catheter removed over the exchange wire. A 5 [place] JL3.5 catheter in over wire. Multiple views taken of left coronary artery. Catheter removed over the exchange wire. 6 [place] ir[place] XB 3 guide catheter was inserted over the wire. Runthrough guidewire was advanced through the guide catheter to lesion in the distal Circ. Add inventory: Endoflator X 2, Co-agricultural pilot. Stent inserted to lesion in the distal Circ. Inflation Number : 1 Sara Rollins DWIGHT 2.75X15 MARK -Lot Number#[id number] EXP 10-24-2024 was prepped and advanced across the Dist CX. The stent was deployed at 0 ESPERANZA for 0:17 seconds. Stent balloon out over wire. Angiography performed checking results. Wire out. Results checked. Guide catheter out. ACT drawn. Results 277 seconds. Therapeutic limits - pre-heparin administration 90-150 seconds and monitoring heparin during a vascular procedure >250 seconds. A TR Band was successful obtaining hemostatsis at the Right Radial artery insertion site. PERRLA. Strong, equal hand ash conveyor operator bilaterally. No VTE prophylaxis required. Medication's Wasted: Lidocaine 1% = 3 mL. Medication's Wasted: Nitro = 49.8 mg. Medication's Wasted: Heparin = 3000 units. Medication's Wasted: Other = Fentanyl 75mcg, Versed 1 mg. Total IV fluids: 39 mL. Post-op diagnosis: Severe distal circumflex stenosis, status post pci 1 stent placement. Complications: None. Estimated blood loss: 5mL-10mL. Responsiveness - Normal response to verbal stimuli; alert and oriented, PERRLA. Airway - Unaffected, no intervention required; spontaneous ventilation. Circulation: W/N/L, pulses unchanged. Nausea/Vomiting: N/A. Procedure completed. Patient transferred by bed to 1st floor. Vital chart was stopped. Access Site Site: Right Radial artery Sheath Size: 6 Fr Hemostasis Method: TR Band Hemostasis Success: Successful Procedure Medications Start: 6:30 AM Stop: 6:30 AM Medication: Versed Amount: 1 mg Route: I.V. Start: 6:31 AM Stop: 6:31 AM Medication: Fentanyl Amount: 25 mcg Route: I.V. Start: 6:35 AM Stop: 6:35 AM Medication: Nitrogylcerin Amount: 200 mcg Route: I.A. Start: 6:36 AM Stop: 6:36 AM Medication: Heparin Amount: 5000 units Route: I.V. Start: 6:46 AM Stop: 6:46 AM Medication: Heparin Amount: 3000 units Route: I.V. Start: 6:59 AM Stop: 6:59 AM Medication: Plavix Amount: 600 mg Route: P.O. I, the attending physician, have reviewed and verified all procedure medications. Yes, all medications given per verbal order History/Risk Factors Hypertension: Yes Dyslipidemia: Yes Peripheral Arterial Disease (PAD): No Myocardial Infarction (VT): No Obesity: No Renal Disease: No Prior Interventions PCI: No CABG: No Valve Surgery: No Report Signatures Finalized by Robin Torrez MD on 03/22/2023 10:11 AM
--- NOTE | 2023-03-21 08:16 | PC.NURSE ---
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
[2023-03-21] MEDS: famotidine 20 mg Tablet PO ×2 (08:22→18:27)
--- NOTE | 2023-03-21 08:24 | PC.NURSE ---
Returned from stress test at 0825.
--- NOTE | 2023-03-21 08:59 | PM.PN ---
Subjective Subjective: Patient had severe distal left circumflex artery stenosis and underwent successful revascularization with 1 stent. No chest pain. Vitals/I&O/Wt Last Vital Signs Temp 97.8 F 03/21/23 04:00 Pulse 59 L 03/21/23 08:19 Resp 20 H 03/21/23 08:19 BP 162/79 03/21/23 08:19 Pulse Ox 98 03/21/23 08:19 O2 Del Method Room Air 03/21/23 08:19 03/20/23 03/21/23 03/21/23 22:59 06:59 14:59 Intake Total 591 / 1145 120 / 120 Output Total 300 / 300 Balance 291 / 845 120 / 120 Weight last 48 hrs Weight 190 lb Physical Exam Narrative: GENERAL: Patient is alert, awake and oriented x3. [] NECK: No jugular vein distension. [] HEENT: No cyanosis. No icterus. No pallor. [] HEART: Regular S1 and S2. No murmur, rub or gallop. [] LUNGS: Clear to auscultate bilaterally. [] CENTRAL NERVOUS SYSTEM: Grossly nonfocal. [] EXTREMITIES: Lower extremities with 1+ edema bilaterally. Pulses palpable in the lower extremities, both dorsalis pedis and posterior tibial. [] Data 03/22/23 02:50 03/22/23 02:50 Micro: Microbiology 03/19/23 17:48 Urine Culture - Preliminary Urine,Clean Catch A&P Assessment and plan (1) Chest pain: (2) NSTEMI (non-ST elevated myocardial infarction): (3) Dyslipidemia: (4) Obstructive sleep apnea: (5) Fatigue: Qualifiers: Fatigue type: other Qualified Code(s): R53.83 - Other fatigue Plan Patient had severe distal left circumflex artery stenosis that was hazy underwent successful revascularization with 1 stent. Aspirin and Plavix for at least 1 year. High intensity statin therapy Thank you for involving us with care of this patient. Please call with questions Attestations Medical Necessity Statement*: Care expected to cross 2 midnights. Coding Level of Care Code Acute Code for [facility] Diagnoses Chest pain R07.9 NSTEMI (non-ST elevated myocardial infarction) I21.4 Dyslipidemia E78.5 Obstructive sleep apnea G47.33 Fatigue R53.83 Fatigue type: other
[2023-03-21] MEDS: amlodipine 5 mg Tablet PO (10:37)
[2023-03-21] MEDS: acetaminophen 325 mg Tablet 650 MG PO ×2 (12:54→20:13)
--- NOTE | 2023-03-21 13:10 | PM.PN ---
Subjective Subjective: No acute events overnight. Patient did have mild chest pressure which had resolved after starting nitro patch. Today morning underwent cardiac angiogram and had PCI with 1 MARK in LCx.(Complete cath report not available currently.) After catheterization when seen in the room patient states she is feeling a lot better. Denies any further chest pressures. Denies any nausea, vomiting, headache. Has remained hemodynamically stable and afebrile. Vitals/I&O/Wt Last Vital Signs Temp 98.7 F 03/21/23 12:00 Pulse 91 03/21/23 12:00 Resp 21 H 03/21/23 12:00 BP 142/74 03/21/23 12:00 Pulse Ox 97 03/21/23 12:00 O2 Del Method Room Air 03/21/23 12:00 03/20/23 03/21/23 03/21/23 22:59 06:59 14:59 Intake Total 591 / 1145 635.833 / 635.833 Output Total 300 / 300 Balance 291 / 845 635.833 / 635.833 Weight last 48 hrs Weight 86.183 kg Physical Exam Narrative: General: No acute distress, AO x3 HEENT: PERRLA, pupils bilaterally equal and reactive Chest: Normal vesicular breath sounds, no added sounds, equal good air entry bilaterally CVS: S1-S2 regular, no murmurs, no tachycardia, no gallops, no rubs Abdomen: Soft, nontender, no organomegaly, bowel sounds present Neuro: No focal deficits, no facial deformity, AO x3, power 5/5 in all limbs Data 03/20/23 04:31 03/20/23 04:31 Micro: Microbiology 03/19/23 17:48 Urine Culture - Final Urine,Clean Catch A&P Assessment and plan (1) Chest pain: Secondary to non-ST elevation [place]. (2) NSTEMI (non-ST elevated myocardial infarction): Cardiology recommendations appreciated. Stress test negative for acute ischemia. Patient continued to have chest pressure so decided to go for cardiac angiogram where she was found to have single-vessel disease. Post PCI to LCx. Appreciate A1c, lipid panel. Continue with DAPT, statin. Tachycardia resolved. Start on metoprolol 25 mg twice daily. Will uptitrate if patient does not have any more bradycardia. (3) Essential hypertension: Goal blood pressure less than 140/90 mmHg. Continue home dose of losartan 100 mg daily. Start patient on amlodipine 5 mg oral daily, metoprolol 25 mg twice daily as above. Monitor blood pressures and uptitrate as for goal blood pressures. (4) Obstructive sleep apnea: Plan CODE STATUS: Full code. Cardiac diet, Famotidine for PUD prophylaxis. Lovenox for DVT prophylaxis. Attestations Medical Necessity Statement*: Requires further hospitalization for management of non-ST elevation CA, post PCI care Diagnoses Chest pain R07.9 NSTEMI (non-ST elevated myocardial infarction) I21.4 Essential hypertension I10 Obstructive sleep apnea G47.33
--- NOTE | 2023-03-21 19:23 | PC.NURSE ---
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 1 ml of air is removed at 0820. 2ml's of air is removed at 0914. 2ml's of air is removed at 1040. 2ml's of air is removed at 1100. 2ml's of air is removed at 1115. 2ml's of air is removed 1230. 2ml's of air is removed at 1248. 2ml's of air is removed at 1258. 2ml's of air is removed at 1320. 2ml's of air is removed at 1335. TR-band is removed at 1400. A 2x2 and tegaderm dressing is applied.
[2023-03-21] MEDS: losartan 50 mg Tablet 100 MG PO (20:12)
[2023-03-21] MEDS: aspirin 81 mg EC Tablet PO (20:13)
[2023-03-21] MEDS: metoprolol tartrate 25 mg Tablet PO (20:14)
[2023-03-21] MEDS: atorvastatin 40 mg Tablet PO (20:14)
[2023-03-22 03:31] VITALS: PULSE 55
[2023-03-22 03:35] LABS: Basophils % 0.2 %; Eosinophils # 0.1 10^3/uL (0.0-0.8); Eosinophils % 0.7 %; Hematocrit 39.1 % (37.0-47.0); Hemoglobin 12.9 g/dL (11.5-15.3); Mean Corpuscular Hemoglobin 30.4 pg (28.0-34.0); Mean Corpuscular Volume 92.2 fl (81-99); Mean Platelet Volume 11.8 fL (7.4-10.4); Monocytes # 0.9 10^3/uL (0.2-0.9); Monocytes % 5.9 %; Neutrophils % 78.8 %; Nucleated Red Blood Cells % 0 %; Platelet Count 270 10^3/cmm (130-400); Red Blood Count 4.24 10^6/uL (4.1-5.3); Red Cell Distribution Width 13.8 % (12.1-15.1); White Blood Count 14.6 10^3/uL (4.0-10.0)
[2023-03-22 04:00] VITALS: BP 135/80; PULSE 58; TEMP 36.4; O2SAT 18
[2023-03-22 04:00] LABS: Alanine Aminotransferase 13 U/L (0-33); Albumin Level 3.5 g/dL (3.5-5.2); Alkaline Phosphatase 68 U/L (35-105); Anion Gap 14.1 (5-19); Aspartate Amino Transferase 13 U/L (0-32); Blood Urea Nitrogen 25 mg/dL (8-23); Calcium 8.9 mg/dL (8.5-10.5); Carbon Dioxide 23 mmol/L (22-29); Chloride 109 mmol/L (98-107); Creatinine Clr Calc Pharmacy 62.6344; Globulin 2.7 g/dL (1.3-4.6); Glucose 96 mg/dL (65-115); Osmolality Calculated 298 mOsm/kg (285-295); Potassium 4.1 mmol/L (3.5-5.1); Sodium 142 mmol/L (136-145); Total Bilirubin 0.2 mg/dL (0.15-1.2); Total Protein 6.2 g/dL (6.6-8.7)
[2023-03-22 07:11] VITALS: BP 138/69; PULSE 55; RESP 15; TEMP 36.6; O2SAT 100
--- NOTE | 2023-03-22 07:32 | PM.PN ---
Subjective Subjective: Patient denies chest pain. She had PCI of left circumflex artery yesterday Vitals/I&O/Wt Last Vital Signs Temp 97.8 F 03/22/23 07:11 Pulse 55 L 03/22/23 07:11 Resp 15 03/22/23 07:11 BP 138/69 03/22/23 07:11 Pulse Ox 100 03/22/23 07:11 O2 Del Method Room Air 03/22/23 07:11 03/21/23 03/22/23 03/22/23 22:59 06:59 14:59 Intake Total 480 / 1241.148 2942 / 3455.833 Output Total 100 / 100 150 / 250 Balance 380 / 6362.729 6295 / 3205.833 Weight last 48 hrs Weight 195 lb Physical Exam Narrative: GENERAL: Patient is alert, awake and oriented x3. [] NECK: No jugular vein distension. [] HEENT: No cyanosis. No icterus. No pallor. [] HEART: Regular S1 and S2. No murmur, rub or gallop. [] LUNGS: Clear to auscultate bilaterally. [] CENTRAL NERVOUS SYSTEM: Grossly nonfocal. [] EXTREMITIES: Lower extremities with 1+ edema bilaterally. Pulses palpable in the lower extremities, both dorsalis pedis and posterior tibial. [] Data 03/22/23 02:50 03/22/23 02:50 Micro: Microbiology 03/19/23 17:48 Urine Culture - Final Urine,Clean Catch A&P Assessment and plan (1) Chest pain: (2) NSTEMI (non-ST elevated myocardial infarction): (3) Dyslipidemia: (4) Obstructive sleep apnea: (5) Fatigue: Qualifiers: Fatigue type: other Qualified Code(s): R53.83 - Other fatigue Plan Patient underwent successful revascularization of her left complex artery with 1 stent. Continue aspirin Plavix at least 1 year. High intensity statin therapy. No chest pain Patient has leukocytosis. Management per primary team. Thank you for involving us with care of this patient. Please call with questions Attestations Medical Necessity Statement*: Care expected to cross 2 midnights. Coding Level of Care Code Acute Code for [facility] Diagnoses Chest pain R07.9 NSTEMI (non-ST elevated myocardial infarction) I21.4 Dyslipidemia E78.5 Obstructive sleep apnea G47.33 Fatigue R53.83 Fatigue type: other
[2023-03-22] MEDS: metoprolol tartrate 25 mg Tablet PO (08:39)
[2023-03-22] MEDS: clopidogrel 75 mg Tablet PO (08:40)
[2023-03-22] MEDS: famotidine 20 mg Tablet PO (08:40)
[2023-03-22] MEDS: amlodipine 5 mg Tablet PO (08:40)
[2023-03-22 11:21] VITALS: BP 129/74; PULSE 55; RESP 18; TEMP 36.7; O2SAT 98
--- NOTE | 2023-03-22 12:18 | PM.DCS ---
Discharge Providers Date of Admission: 03/21/23 13:36 Date of Discharge: March 22, 2023 Attending Provider at Admission: Lance Simmons MD Attending Provider at Discharge: Lance Simmons MD Primary Care Provider: Brittany Ovalles Diagnoses at Discharge Discharge Diagnosis (1) Chest pain: Status: Acute (2) NSTEMI (non-ST elevated myocardial infarction): Status: Acute (3) Dyslipidemia: Status: Acute (4) Obstructive sleep apnea: Status: Acute (5) Fatigue: Status: Acute Qualifiers: Fatigue type: other Qualified Code(s): R53.83 - Other fatigue Reason for Visit Reason for Visit: Ovalles sent for chest pressure Hospital Course Hospital Course Patient was sent to the hospital for chest pain rule out with concerns for non-ST elevation MA. Troponin cycle was negative and downtrending. Patient did not have any further chest pain during hospitalization. Antihypertensives were adjusted and blood pressures remained stable. She underwent Lexiscan stress test which showed old infarct without ischemia. Echocardiogram has been done. Patient continued to have chest pressures. With concerns for ongoing ACS with a possible false negative Lexiscan stress test cardiology was consulted and she underwent cardiac angiogram on 03/21. She was found to have single-vessel disease and underwent MARK to LCx. Patient's chest pressure resolved after the PCI. Her hospitalization was otherwise unremarkable. She has been discharged in medically stable condition on amlodipine 5 mg daily, metoprolol 12.5 mg twice daily, atorvastatin 40 mg daily along with all her home medications. She is to follow-up with a primary care provider within next 1 week and with Libby Melara/nurse practitioner from cardiology in 2 weeks. She is to check her blood pressure daily at home maintain a blood pressure diary and follow-up for further adjustment of antihypertensives as needed. Physical Exam Narrative: General: No acute distress, AO x3 HEENT: PERRLA, pupils bilaterally equal and reactive Chest: Normal vesicular breath sounds, no added sounds, equal good air entry bilaterally CVS: S1-S2 regular, no murmurs, no tachycardia, no gallops, no rubs Abdomen: Soft, nontender, no organomegaly, bowel sounds present Neuro: No focal deficits, no facial deformity, AO x3, power 5/5 in all limbs Discharge Data Studies Completed and Pending Completed Studies During Hospitalization Category Date Time Status CT chest wo con [id number] Routine Cat Scan 03/20/23 13:57 Completed B[facility]NER request for service Routine Exams 03/21/23 06:08 Completed CXRP [XR chest 1V portable [id number]] Stat Exams 03/19/23 13:57 Completed Sestamibi Stress Test Request Routine Exams 03/20/23 06:52 Draft NM radha perf SPECT r/s* [id number] Routine Nuc Med 03/20/23 08:00 Completed CV. echo complete* [id number] Routine Ultrasound 03/20/23 08:04 Completed Pending at discharge Category Date Time Status Sestamibi Stress Test Request Routine Exams 03/19/23 20:05 Stop Req Radiology Impressions Chest X-Ray 03/19/23 13:57 IMPRESSION: 1. No acute cardiopulmonary finding. Chest CT 03/20/23 13:57 IMPRESSION: 1. No pneumonia. No pneumothorax. 2. No adenopathy. 3. Mild cardiomegaly. Mitral annular valve calcification. 4. Hepatic cysts. Lexiscan stress test: PERFUSION FINDINGS ?There is a small in size fixed perfusion defect noted in apical lateral and ?inferolateral wall.? This is consistent with small sized prior infarct in left ?circumflex artery territory with no evidence of ischemia. ?FUNCTIONAL RESULTS ? ? (calculated via Gated SPECT) ? Stress Image LV EF (%):? ? 83 ? Stress EDV (mL):66 ? TID:? 0.86 ? Stress ESV (mL):11 ?FUNCTIONAL FINDINGS: ?There is normal left ventricular systolic function. ?IMPRESSIONS ?1.? Small sized area of prior infarct seen in left circumflex artery territory.? ?No evidence of ischemia. ?2.? LV systolic function is normal. ?Robin Torrez MD ?(Electronically Signed) ?Final Date:? ? ? 20 March 2023 Echocardiogram: ?CONCLUSIONS ?LV systolic function is normal with EF 55 to 60%. ?Grade 1 diastolic dysfunction ?Left atrial dilation ?Mild mitral regurgitation ?Mild tricuspid regurgitation ?Compared to prior echocardiogram from 2021, no significant ?changes are seen ?Robin Torrez MD ?(Electronically Signed) ?Final Date:? ? ? 20 March 2023 ? 17:30 Auto Mechanic procedure: Conclusions ? 1. 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 ? 2. Distal Circumflex was treated with a Drug Eluting Stent. Recommendations ? * Dual antiplatelet therapy for atleast 1 year. ? * High intensity statin therapy. ? * Outpatient cardiology follow up in 2-4 weeks. Laboratory Results WBC 14.6 10^3/uL (4.0-10.0) H 03/22/23 02:50 RBC 4.24 10^6/uL (4.1-5.3) 03/22/23 02:50 Hgb 12.9 g/dL (11.5-15.3) 03/22/23 02:50 Hct 39.1 % (37.0-47.0) 03/22/23 02:50 MCV 92.2 fl (81-99) 03/22/23 02:50 MCH 30.4 pg (28.0-34.0) 03/22/23 02:50 MCHC 33.0 g/dL (30.0-36.0) 03/22/23 02:50 RDW 13.8 % (12.1-15.1) 03/22/23 02:50 Plt Count 270 10^3/cmm (130-400) 03/22/23 02:50 MPV 11.8 fL (7.4-10.4) H 03/22/23 02:50 Neut % (Auto) 78.8 % 03/22/23 02:50 Lymph % (Auto) 14.0 % 03/22/23 02:50 [place] % (Auto) 5.9 % 03/22/23 02:50 Eos % (Auto) 0.7 % 03/22/23 02:50 Baso % (Auto) 0.2 % 03/22/23 02:50 Neut # (Auto) 11.50 10^3/uL (1.8-7.7) H 03/22/23 02:50 Lymph # (Auto) 2.0 10^3/uL (0.8-4.8) 03/22/23 02:50 [place] # (Auto) 0.9 10^3/uL (0.2-0.9) 03/22/23 02:50 Eos # (Auto) 0.1 10^3/uL (0.0-0.8) 03/22/23 02:50 Baso # (Auto) 0.0 10^3/uL (0.0-0.1) 03/22/23 02:50 Nucleated RBC % (auto) 0 % 03/22/23 02:50 Nucleated RBCs # 0.0 /100WBC 03/22/23 02:50 PT 12.20 SECONDS (12.1-14.9) 03/19/23 14:30 INR 0.88 (0.8-1.2) 03/19/23 14:30 Sodium 142 mmol/L (136-145) 03/22/23 02:50 Potassium 4.1 mmol/L (3.5-5.1) 03/22/23 02:50 Chloride 109 mmol/L (98-107) H 03/22/23 02:50 Carbon Dioxide 23 mmol/L (22-29) 03/22/23 02:50 Anion Gap 14.1 (5-19) 03/22/23 02:50 BUN 25 mg/dL (8-23) H 03/22/23 02:50 Creatinine 0.8 mg/dL (0.5-0.9) 03/22/23 02:50 GFR Calculation Not Reportable 03/22/23 02:50 Glucose 96 mg/dL (65-115) 03/22/23 02:50 Estimat Average Glucose 103 03/20/23 04:31 Hemoglobin A1c 5.2 % (4.0-6.0) 03/20/23 04:31 Calculated Osmolality 298 mOsm/kg (285-295) H 03/22/23 02:50 Calcium 8.9 mg/dL (8.5-10.5) 03/22/23 02:50 Phosphorus 3.4 mg/dL (2.5-4.5) 03/20/23 04:31 Magnesium 2.0 mg/dL (1.7-2.3) 03/20/23 04:31 Iron 112 ug/dL (37-145) 03/19/23 14:30 TIBC 297 mcg/dl 03/19/23 14:30 % Saturation 37.7 % (20-50) 03/19/23 14:30 Unsat Iron Binding 185 ug/dL (112-347) 03/19/23 14:30 Total Bilirubin 0.2 mg/dL (0.15-1.2) 03/22/23 02:50 AST 13 U/L (0-32) 03/22/23 02:50 ALT 13 U/L (0-33) 03/22/23 02:50 Alkaline Phosphatase 68 U/L (35-105) 03/22/23 02:50 Troponin T Baseline 71 ng/L (0-10) H 03/19/23 14:30 Troponin T 120 Minute 61.19 ng/L (0-10) H 03/19/23 16:30 Delta Troponin T -9.81 ABS# (0-10) L 03/19/23 16:30 Troponin T Hi Sens 6Hr 50.31 ng/L (0-10) H 03/19/23 20:38 Troponin T Hi Sens 6Hr Delta -20.69 ng/L (0-12) L 03/19/23 20:38 Total Protein 6.2 g/dL (6.6-8.7) L 03/22/23 02:50 Albumin 3.5 g/dL (3.5-5.2) 03/22/23 02:50 Globulin 2.7 g/dL (1.3-4.6) 03/22/23 02:50 Triglycerides 131 mg/dL (0-150) 03/20/23 04:31 Cholesterol 225 mg/dL (0-200) H 03/20/23 04:31 LDL Cholesterol, Calc 156 mg/dL (50-129) H 03/20/23 04:31 HDL Cholesterol 43 mg/dL (60-100) L 03/20/23 04:31 LDL/HDL Ratio 3.63 RATIO (0.00-3.22) H 03/20/23 04:31 Cholesterol/HDL Ratio 5.23 mg/dL (0.0-4.40) H 03/20/23 04:31 Vitamin B12 468 pg/mL (232-1245) 03/19/23 16:30 Folate 7.0 ng/mL (4.8-37.3) 03/20/23 04:31 TSH 3.70 uIU/mL (0.27-4.20) 03/19/23 14:30 Urine Color Yellow (Yellow) 03/19/23 17:48 Urine Appearance Hazy (CLEAR) A 03/19/23 17:48 Urine pH 5 (5-7) 03/19/23 17:48 Ur Specific Ubly 1.020 (1.005-1.030) 03/19/23 17:48 Urine Protein Neg (Negative) 03/19/23 17:48 Urine Glucose (UA) Norm (Normal) 03/19/23 17:48 Urine Ketones Negative (Negative) 03/19/23 17:48 Urine Blood Neg (Negative) 03/19/23 17:48 Urine Nitrate Negative (Negative) 03/19/23 17:48 Urine Bilirubin Neg (Negative) 03/19/23 17:48 Urine Urobilinogen Norm mg/dL (Negative) 03/19/23 17:48 Ur Leukocyte Esterase 1+ (Negative) H 03/19/23 17:48 Urine RBC 0-4 /hpf (0-2) H 03/19/23 17:48 Urine WBC 10-15 /hpf (0-5) H 03/19/23 17:48 Ur Squamous Epith Cells 5-10 /hpf (0-5) H 03/19/23 17:48 Amorphous Sediment Not Reportable 03/19/23 17:48 Urine Bacteria 2+ /hpf (NONE) H 03/19/23 17:48 Urine Mucus 1+ /hpf 03/19/23 17:48 Vitals Last Vital Signs Temp 98.1 F 03/22/23 11:21 Pulse 55 L 03/22/23 11:21 Resp 18 03/22/23 11:21 BP 129/74 03/22/23 11:21 Pulse Ox 98 03/22/23 11:21 O2 Del Method Room Air 03/22/23 11:21 Discharge Plan Discharge Patient Disposition: Home Condition: Stable Prescriptions: New amlodipine 5 mg Tablet 5 mg PO DAILY Qty: 30 0RF atorvastatin 40 mg tablet 40 mg PO DAILY Qty: 30 0RF famotidine 20 mg Tablet 20 mg PO BID Qty: 60 0RF clopidogrel 75 mg Tablet 75 mg PO DAILY Qty: 30 0RF metoprolol tartrate 25 mg Tablet 12.5 mg PO BID@0900,2100 30 Days Qty: 30 0RF levofloxacin 500 mg tablet 500 mg PO Q24H 5 Days Qty: 5 0RF Continued losartan 100 mg tablet 100 mg PO BEDTIME aspirin [Adult Aspirin Regimen] 81 mg tablet,delayed release (DR/EC) 81 mg PO BEDTIME fluticasone propionate [Flonase Allergy Relief] 50 mcg/actuation spray,suspension 1 spray INTRANASAL DAILY mupirocin 2 % ointment 1 applic TOPICAL TID PRN (Reason: unknown) Discontinued ibuprofen 800 mg tablet 800 mg PO TID PRN (Reason: pain) Qty: 60 0RF hydrochlorothiazide 12.5 mg capsule 12.5 mg PO QAM Discharge Orders: Discharge Order (Routine); Ordered 03/22/23 Ordered By: Lance Simmons Referrals: Robin Torrez M.D [Physician] - (Your Dr. Torrez follow up appointment will be scheduled while you are at your Libby Melara appointment. Thank you.) Libby Melara FNP [Nurse Practitioner] - 04/04/23 10:15 am Brittany Ovalles PA [Primary Care Provider] - 04/04/23 8:20 am () Discharge Diet: Cardiac Discharge Activity: Resume usual activity and Increase activity as tolerated Patient Instructions: Metoprolol (By mouth) (Lopressor, Toprol XL), Famotidine (By mouth), Amlodipine (By mouth), Atorvastatin (By mouth), Levofloxacin (By mouth) (Levaquin, Levaquin Leva-gay), Clopidogrel (By mouth) (Plavix), Coronary Angioplasty (DC), Chest Pain Stoplight, Opioid Safety, Post Angiogram Home Care Instructions, Post Heart Attack Stoplight Activity Restrictions/Additional Instructions: Check blood pressure daily at home and maintain an blood pressure diary and follow up with your PCP in next 2 weeks for further adjustment of your blood pressure meds. Amlodipine 5 mg once a day, metoprolol 12.5 mg twice daily has been added for high blood pressure. Atorvastatin has been added added for your high cholesterol. Follow-up with nurse practitioner from cardiology/Libby Melara onset appointment. Discharge Attestations Time Spent in Discharge Care*: greater than 30 min Specific Discharge Activities: educating patient, educating and/or supporting family/caregiver, discussing with pcp/other providers, discussing with bilingual case manager/social workers/dc planners, documenting/other paperwork and evaluating patient/reviewing data Status at Discharge: Cognitive status at discharge: cognitively intact, Behavioral status at discharge: cooperative, Functional status at discharge: independent ambulation, Overall status at discharge: patient is back to baseline Quality Metrics Clinical Quality Measures [ Acute Myocardial Infaction { Clinical Trial Participant: No; Contraindication to aspirin: None; Aspirin prescribed; Contraindication to statin: None; Statin prescribed; Contraindication to PCI: None; PCI performed;}] Coding Level of Care Code 86376 Total time (in minutes) for Discharge: 60 Diagnoses Chest pain R07.9 NSTEMI (non-ST elevated myocardial infarction) I21.4 Dyslipidemia E78.5 Obstructive sleep apnea G47.33 Fatigue R53.83 Fatigue type: other
[2023-03-22 13:42] VITALS: BP 136/73; PULSE 63; RESP 20; O2SAT 96
== END 2023-03-22 14:13 | disposition home or self-care (01) | DRG 247 ==
LOC: ER 17:11 → CSU 17:31
PROVIDERS: Internal Medicine; Admitting Provider Student in an Organized Health Care Education/Training Program; Emergency Provider Emergency Medicine; PCP Physician Assistant; Visit Provider Student in an Organized Health Care Education/Training Program
PROC: 027034Z Dilation of Coronary Artery, One Artery with Drug-eluting Intraluminal Device, Percutaneous Approach (ICD-10-PCS; principal; 2023-03-21 06:00)
PROC: 027034Z Dilation of Coronary Artery, One Artery with Drug-eluting Intraluminal Device, Percutaneous Approach (ICD-10-PCS; 2023-03-21 06:00)
DX: I21.4 Non-ST elevation (NSTEMI) myocardial infarction (principal); I25.10 Atherosclerotic heart disease of native coronary artery without angina pectoris; E78.00 Pure hypercholesterolemia, unspecified; I10 Essential (primary) hypertension; I25.2 Old myocardial infarction; Z86.73 Personal history of transient ischemic attack (TIA), and cerebral infarction without residual deficits; E66.9 Obesity, unspecified; Z68.32 Body mass index [BMI] 32.0-32.9, adult; Z79.82 Long term (current) use of aspirin; G47.33 Obstructive sleep apnea (adult) (pediatric); R53.83 Other fatigue; D72.829 Elevated white blood cell count, unspecified
CPT/HCPCS: 36415; 71045; 71250; 78452; 80053; 80061; 81001; 82607; 82746; 83036; 83540; 83550; 83735; 84100; 84443; 84484; 85025; 85347; 85610; 87086; 93005; 93017; 93306; 93454; 94664; 96372; 96374; 96375; 99152; 99153; 99285; A9500; C1725; C1769; C1874; C1887; C1894; C9600; G0378; J1644; J1650; J2250; J2270; J2405; J2785; J3010; J3490; J7030; J7512; Q0163; Q9967

== ENCOUNTER → 2023-04-04 10:25 | Outpatient (BNVA) | payer MEDICARE, MEDICAID, SELFPAY | PROVIDERS: PCP Physician Assistant; Visit Provider Nurse Practitioner Family | DX: I25.110 Atherosclerotic heart disease of native coronary artery with unstable angina pectoris (principal); I10 Essential (primary) hypertension; I21.4 Non-ST elevation (NSTEMI) myocardial infarction | CPT/HCPCS: 36415; 80048; 99214 ==

== ENCOUNTER 2023-04-22 12:43 | Outpatient (RCR) | payer MEDICARE, MEDICAID, SELFPAY | END 2023-05-22 23:59 | disposition home or self-care (01) | LOC: CR 12:43 | PROVIDERS: Absent Provider Internal Medicine; PCP Physician Assistant; Referring Provider Internal Medicine; Visit Provider Internal Medicine | DX: Z95.5 Presence of coronary angioplasty implant and graft (principal) | CPT/HCPCS: 93798 ==

== ENCOUNTER 2023-04-25 08:19 | Outpatient (CLI) | payer MEDICARE, MEDICAID, SELFPAY ==
[2023-04-25 08:59] LABS: Cholesterol 156 mg/dL (0-200); HDL Cholesterol 52 mg/dL (60-100); LDL Cholesterol Calculated 88 mg/dL (50-129); LDL HDL Ratio 1.69 RATIO (0.00-3.22); Triglycerides 81 mg/dL (0-150)
== END 2023-04-25 08:20 | disposition home or self-care (01) ==
PROVIDERS: PCP Physician Assistant; Visit Provider Nurse Practitioner Family
DX: E78.5 Hyperlipidemia, unspecified (principal)
CPT/HCPCS: 36415; 80061

== ENCOUNTER → 2023-05-20 09:23 | Outpatient (BNVA) | payer MEDICARE, MEDICAID, SELFPAY | PROVIDERS: PCP Physician Assistant; Visit Provider Podiatrist Foot & Ankle Surgery | DX: Q82.8 Other specified congenital malformations of skin (principal); M20.12 Hallux valgus (acquired), left foot | CPT/HCPCS: 17110; 99204 ==

== ENCOUNTER → 2023-05-27 13:11 | Outpatient (BNVA) | payer MEDICARE, MEDICAID, SELFPAY | PROVIDERS: PCP Physician Assistant; Visit Provider Internal Medicine Cardiovascular Disease | DX: I25.110 Atherosclerotic heart disease of native coronary artery with unstable angina pectoris (principal); E78.5 Hyperlipidemia, unspecified; E66.9 Obesity, unspecified; Z68.33 Body mass index [BMI] 33.0-33.9, adult; G47.33 Obstructive sleep apnea (adult) (pediatric); I10 Essential (primary) hypertension; I25.2 Old myocardial infarction | CPT/HCPCS: 99214 ==

== ENCOUNTER → 2023-06-29 11:01 | Outpatient (BNVA) | payer MEDICARE, MEDICAID, SELFPAY | PROVIDERS: PCP Physician Assistant; Visit Provider Emergency Medicine | DX: J06.9 Acute upper respiratory infection, unspecified (principal); Z11.52 Encounter for screening for COVID-19 | CPT/HCPCS: 87400; 87426 ==

== ENCOUNTER → 2023-09-08 09:37 | Outpatient (BNVA) | payer MEDICARE, MEDICAID, SELFPAY | PROVIDERS: PCP Physician Assistant; Referring Provider Physician Assistant; Visit Provider Specialist | DX: R42 Dizziness and giddiness (principal); R25.3 Fasciculation; M50.020 Cervical disc disorder with myelopathy, mid-cervical region, unspecified level; H55.09 Other forms of nystagmus; G24.5 Blepharospasm | CPT/HCPCS: 99205 ==

== ENCOUNTER → 2023-11-12 13:53 | Outpatient (BNVA) | payer MEDICARE, MEDICAID, SELFPAY | PROVIDERS: PCP Physician Assistant; Visit Provider Specialist | DX: H55.09 Other forms of nystagmus (principal); G24.5 Blepharospasm; M50.020 Cervical disc disorder with myelopathy, mid-cervical region, unspecified level | CPT/HCPCS: 99214 ==

== ENCOUNTER 2023-11-20 12:59 | Outpatient (CLI) | payer MEDICARE, MEDICAID, SELFPAY ==
--- NOTE | 2023-11-20 13:04 | CT_ITS ---
WS: [id number] CT ABDOMEN AND PELVIS NONCONTRAST HISTORY: LLQ PAIN TECHNIQUE: Imaging performed through the abdomen and pelvis. Coronal and sagittal reformats are submi tted. All CT scans at [facility] use at least one of these dose optimization techniques: auto mated exposure control; mA and/or kV adjustment per patient size (includes targeted exams where dose is matched to clinical indication); or iterative reconstruction. DLP: 712.80 mGy.cm COMPARISON: 06/07/2021 and 09/28/2016 Lower thorax: Lung bases are clear. Visualized heart is normal. No hiatal hernia. Liver: Normal size liver. There is numerous stable cysts within the liver. Gallbladder: Normal gallbladder. No pericholecystic fluid or cholelithiasis. No gallbladder wall thic kening. Pancreas: Stable calcification in the mid body of the pancreas. No duct dilatation. Spleen: Granulomata. Normal size. Adrenal glands: Normal. No mass. Right kidney: Normal size kidney. Lobulated cyst 2.8 x 3.8 cm. No obstruction. Left kidney: Normal size kidney. Exophytic cyst from the posterior mid kidney with a maximum diameter of 1.0 cm. Aorta: Mild atherosclerosis abdominal aorta with no aneurysm. No free fluid, intraperitoneal air or significant lymphadenopathy. GI tract: Normally distended stomach. No small bowel obstruction. Normal appendix. Mild diverticular burden in the distal colon. No acute inflammatory process. No obstruction. Abdominal wall: Negative. No hernia. Pelvis: No free fluid or adenopathy. Uterus is atrophic. Osseous structures: Mild degenerative curvature lumbar spine. IMPRESSION: 1. Mild distal colonic diverticular burden. No evidence for acute diverticulitis. 2. No ascites or free air. 3. Normal appendix. 4. Mild diffuse constipation. 5. Bilateral renal cysts and hepatic cysts.
== END 2023-11-20 13:00 | disposition home or self-care (01) ==
LOC: RAD 12:59
PROVIDERS: PCP Physician Assistant; Visit Provider Physician Assistant
DX: R10.32 Left lower quadrant pain (principal); N28.1 Cyst of kidney, acquired; K76.89 Other specified diseases of liver; K59.00 Constipation, unspecified
CPT/HCPCS: 74176

== ENCOUNTER → 2023-11-27 12:20 | Outpatient (BNVA) | payer MEDICARE, MEDICAID, SELFPAY | PROVIDERS: PCP Physician Assistant; Visit Provider Specialist | DX: H55.09 Other forms of nystagmus (principal); G24.5 Blepharospasm | CPT/HCPCS: 64612; 99213 ==

== ENCOUNTER → 2024-01-09 10:40 | Outpatient (BNVA) | payer MEDICARE, MEDICAID, SELFPAY | PROVIDERS: PCP Physician Assistant; Visit Provider Internal Medicine Cardiovascular Disease | DX: I25.110 Atherosclerotic heart disease of native coronary artery with unstable angina pectoris (principal); E78.5 Hyperlipidemia, unspecified; I10 Essential (primary) hypertension; R07.9 Chest pain, unspecified; E66.9 Obesity, unspecified; G47.33 Obstructive sleep apnea (adult) (pediatric); R42 Dizziness and giddiness; R53.83 Other fatigue; R55 Syncope and collapse; I25.2 Old myocardial infarction; Z68.32 Body mass index [BMI] 32.0-32.9, adult | CPT/HCPCS: 99213 ==

== ENCOUNTER 2024-04-19 07:38 | Outpatient (CLI) | payer MEDICARE, MEDICAID, SELFPAY ==
--- NOTE | 2024-04-19 | ECG_ITS ---
[facility] Test Date: 2024-04-19 Pat Name: Clemencia Garrison Department: Room: Gender: Female Net Mvc Developer: : 1945 Requested By: Brittany Jeter Order Number: [id number] Reading MD: Interpretive Statements Lung unchanged pre/post procedure; Intraprocedure shortess of breath; Symptoms resoled by discharge [id number]
[2024-04-19 07:53] VITALS: BMI 32.8
--- NOTE | 2024-04-19 07:53 | NMCV_ITS ---
NM radha perf SPECT r/s* [id number] Clemencia Garrison Age: 78 Gender: F : 1945 Exam Date: 04/19/2024 08:25 Ordering Phys: Brittany Ovalles Technologist: JED Barron Exam Location: [facility] Indications: YANEZ STRESS TEST [facility] IMAGE PROTOCOL Rest/Stress 1 Lexiscan Day Radiopharmaceutical Dose (mCi) Administration Site Administered by Rest: Tc-99m 10.6 IV JED Barron Sestamibi Stress:Tc-99m 33.0 IV JED Barron Sestamibi Rest: 19-Apr-2024 60 Discovery 630 Stress: 19-Apr-2024 30 Discovery 630 0.4mg Lexiscan. Images obtained in supine and prone position. SPECT RESULTS Technical Quality: Good Raw Data Analysis: Normal Image Corrections: No attenuation or motion correction applied Summed Stress Score: 3 Summed Rest Score: 1 Summed Difference Score: 2 PERFUSION FINDINGS There is a small sized, partially reversible perfusion defect of mild intensity in the inferolateral wall. This is consistent with small area of prior infarct with minimal hubert-infarct ischemia in the left circumflex artery distribution. FUNCTIONAL RESULTS (calculated via Gated SPECT) Stress Image LV EF (%): 75 Stress EDV (mL):89 TID: 0.96 Stress ESV (mL):22 FUNCTIONAL FINDINGS: There is normal left ventricular systolic function. IMPRESSIONS 1. Small area of prior infarct with minimal hubert-infarct ischemia seen in the left circumflex artery territory. 2. LV systolic function is normal Robin Torrez MD (Electronically Signed) Final Date: 19 April 2024 11:05 S
--- NOTE | 2024-04-19 08:08 | USCV_ITS ---
Clemencia Garrison Age: 78 Gender: F : 1945 Exam Date: 04/19/2024 08:16 Ordering Phys: Brittany Ovalles Technologist: Exam Location: [facility] Indication: sob cp BP: 125 / 70 HR: 74 Rhythm: Sinus Technical Quality: Adequate MEASUREMENTS (Male / Female) Normal Values 2D ECHO LV Diastolic Diameter PLAX 4.1 cm 4.2 - 5.9 / 3.9 - 5.3 cm IVS Diastolic Thickness 1.6 cm 0.6 - 1.0 / 0.6 - 0.9 cm IVS Systolic Thickness 1.8 cm LVPW Diastolic Thickness 1.3 cm 0.6 - 1.0 / 0.6 - 0.9 cm LVPW Systolic Thickness 1.9 cm LVOT Diameter 2.0 cm LV Ejection Fraction 2D Teich 81.3 % LV Ejection Fraction MOD 4C 56.0 % LV Ejection Fraction MOD 2C 71.3 % LV Ejection Fraction 2C AL 72.6 % LA Diameter 3.7 cm LA Sys Volume AL 80.3 cm cubed LA Sys Volume Index AL 40.9 cm cubed/m squared Aorta at Sinotubular Diameter 2.8 cm IVC Diameter 1.4 cm M-MODE LA Ao Ratio MM 1.3 AV Cusp Separation MM 1.7 cm DOPPLER AV Peak Velocity 172.0 cm/s LVOT Peak Velocity 139.0 cm/s AV Area Cont Eq vti 2.8 cm squared AV Area Cont Eq pk 2.5 cm squared MV Peak Velocity 146.0 cm/s MV Area PHT 2.3 cm squared Mitral E to A Ratio 1.3 TV Peak Velocity 257.0 cm/s TR Peak Velocity 271.0 cm/s TR Peak Gradient 29.4 mmHg TV Peak E Velocity 139.0 cm/s Right Atrial Pressure 3.0 mmHg Pulmonary Artery Systolic Pressu 32.4 mmHg PV Peak Velocity 127.0 cm/s FINDINGS Left Ventricle Mild to moderate concentric left-ventricular hypertrophy. LV ejection fraction around 70%. No regional wall motion abnormalities. Grade III/IV diastolic dysfunction (restrictive filling pattern), severely elevated filling pressures. Right Ventricle The right ventricle is normal in size and function. Right Atrium Mildly increased right atrial size. Left Atrium Moderately increased left atrial size. Mitral Valve Moderate mitral annular calcification. Mild mitral valve regurgitation. Aortic Valve Thickened aortic valve Tricuspid Valve No gross abnormalities noted Pulmonic Valve No gross abnormalities noted Pericardium Normal pericardium without effusion. Aorta Normal ascending aorta dimension. IVC Normal inferior vena cava. CONCLUSIONS Mild to moderate concentric left-ventricular hypertrophy. LV ejection fraction around 70%. No regional wall motion abnormalities. Grade III/IV diastolic dysfunction (restrictive filling pattern), severely elevated filling pressures. Moderately increased left atrial size. Mildly increased right atrial size. Moderate mitral annular calcification. Mild mitral valve regurgitation. Thickened aortic valve. There is no pericardial effusion. There are no intracardiac masses. Compared to the study from 03/20/2023, there is worsening of the LV diastolic function Dr Sabrina Mix MD FACC (Electronically Signed) Final Date: 19 April 2024 20:54 S
[2024-04-19] MEDS: regadenoson 0.4 Mg/5 ml Syringe IVP (09:15)
[2024-04-19 09:22] VITALS: BP 141/67; PULSE 80
== END 2024-04-19 07:39 | disposition home or self-care (01) ==
PROVIDERS: PCP Physician Assistant; Visit Provider Physician Assistant
DX: I50.30 Unspecified diastolic (congestive) heart failure (principal); R06.09 Other forms of dyspnea; I51.7 Cardiomegaly; I70.0 Atherosclerosis of aorta; I35.0 Nonrheumatic aortic (valve) stenosis; R94.39 Abnormal result of other cardiovascular function study; R01.1 Cardiac murmur, unspecified
CPT/HCPCS: 36415; 78452; 93017; 93306; 96374; A9500; J2785

== ENCOUNTER → 2024-07-29 14:31 | Outpatient (BNVA) | payer MEDICARE, MEDICAID, SELFPAY | PROVIDERS: PCP Physician Assistant; Visit Provider Internal Medicine Cardiovascular Disease | DX: I25.110 Atherosclerotic heart disease of native coronary artery with unstable angina pectoris (principal); I10 Essential (primary) hypertension; R53.83 Other fatigue | CPT/HCPCS: 99214 ==

== ENCOUNTER → 2024-08-04 14:45 | Outpatient (BNVA) | payer MEDICARE, MEDICAID, SELFPAY | PROVIDERS: PCP Physician Assistant; Referring Provider Nurse Practitioner Family; Visit Provider Nurse Practitioner Family | DX: L57.8 Other skin changes due to chronic exposure to nonionizing radiation (principal); D22.39 Melanocytic nevi of other parts of face; L81.4 Other melanin hyperpigmentation; D48.5 Neoplasm of uncertain behavior of skin; L57.0 Actinic keratosis | CPT/HCPCS: 11102; 17000; 99203 ==

== ENCOUNTER → 2024-09-03 08:37 | Outpatient (BNVA) | payer MEDICARE, MEDICAID, SELFPAY | PROVIDERS: PCP Physician Assistant; Visit Provider Dermatology | DX: L82.1 Other seborrheic keratosis (principal); L73.8 Other specified follicular disorders; C44.319 Basal cell carcinoma of skin of other parts of face | CPT/HCPCS: 13132; 17311; 99213 ==

== ENCOUNTER → 2025-01-04 10:45 | Outpatient (BNVA) | payer MEDICARE, MEDICAID, SELFPAY | PROVIDERS: PCP Physician Assistant; Visit Provider Nurse Practitioner Family | DX: L90.5 Scar conditions and fibrosis of skin (principal); L82.1 Other seborrheic keratosis; S50.911A Unspecified superficial injury of right forearm, initial encounter; L73.8 Other specified follicular disorders; L57.8 Other skin changes due to chronic exposure to nonionizing radiation; D22.39 Melanocytic nevi of other parts of face; Z08 Encounter for follow-up examination after completed treatment for malignant neoplasm; Z85.828 Personal history of other malignant neoplasm of skin; L57.0 Actinic keratosis; X58.XXXA Exposure to other specified factors, initial encounter | CPT/HCPCS: 17000; 99213 ==

== ENCOUNTER 2025-01-12 14:28 | Observation (INO) | payer MEDICARE, MEDICAID, SELFPAY ==
[2025-01-12] VITALS (10 sets, daily range): BP systolic 123–159; BP diastolic 73–87; PULSE 54–79; RESP 17–18; TEMP 36.6–36.7; O2SAT 95–100; BMI 30.7; BMI 31.2
--- NOTE | 2025-01-12 14:34 | XR_ITS ---
WS: [id number] Exam: XR chest 1V portable [id number] Date/Time of Exam: 01/12/2025 3:09 PM Reason For Exam: Weakness Comparison 03/10/2024. Lungs are fully inflated and clear. Heart size top limits normal. No pleural effusions. Bony structures are unremarkable. Rotator cuff anchor screw in the RIGHT humeral head. XR/XR chest 1V portable [id number] IMPRESSION: 1. No acute cardiopulmonary finding.
--- NOTE | 2025-01-12 15:05 | ED_ITS ---
HPI - Dizziness 2 General: Chief Complaint: Dizziness Stated Complaint: light headed and weak Time Seen by Provider: 01/12/25 14:50 History of Present Illness: HPI Narrative: 79-year-old female presents with general ized weakness. Patient reports that whenever she does any activity she gets to breathing hard and feels weak and has to rest within 10 or 15 feet. She has noticed this more than usual over the last couple days. She reports she also has dizziness but this has been a chronic issue and is completely unchanged in the last 7 years. She says, in fact, she does not want us to worry about her dizziness she has been having it for so long that it is not her concern today. She says she has been through vertigo rehab and seen multiple specialists, they do not know what causes her dizziness . She says it is not actually vertigo or spinning nor lightheadedness she is just off balance whenever she walks. Nobody has ever been able to tell her what the causes and it has not changed. She reports she is getting shortness of breath with exertion. She does have a history of 1 coronary stent and congestive heart failure. She reports her heart has not been checked out in a long time. She has a very vague pressure-like sensation in her chest occasionally, not currently. She does typically sleep in a semiupright position. On examination she has a significant murmur. Patient states she has had a murmur for a long time but has not got it evaluated in several years. Associated symptoms: Denies chills, headache(s), nausea, syncope or vomiting Associated neuro symptoms: Deny numbness in extremities Related Data Home Medications ?Medication ?Instructions ?Recorded ?Confirmed losartan 100 mg tablet 100 mg PO BEDTIME 07/16/21 0 01/12/25 cetirizine 10 mg tablet (Zyrtec) 10 mg PO DAILY PRN al rubin 01/09/24 01/12/25 Previous Rx's ?Medication ?Instructions ?Recorded amlodipine 5 mg tablet 5 mg PO DAILY #90 tabs 06/21 atorvastatin 40 mg tablet 40 mg PO DAILY #90 tabs 05/25 clopidogrel 75 mg tablet 75 mg PO DAILY #90 tabs 05/25 isosorbide mononitrate 30 mg 30 mg PO DAILY #90 tabs 1 1/07/24 tablet,extended release 24 hr metoprolol succinate 25 mg 12.5 mg (1/2 x 25 mg) PO .q hs #45 07/29/24 tablet,extended release 24 hr tabs Allergies Allergy/AdvReac Type Severity Reaction Status Date / Time Iodinated Contrast Media Allergy ALGY-Hives Verified 01/12/25 14:43 Review of Systems 2 General: Reports: 10 or more systems reviewed and unremarkable except in HPI and below Const: Denies: fever(s), chills or body aches Eyes: Denies: change in vision ENMT: Denies: throat pain Card: Denies: edema or syncope Resp: Denies: productive cough GI: Denies: abdominal pain, nausea, vomiting or diarrhea : Denies: flank pain, dysuria or urinary frequency Musc: Denies: neck pain, back pain, extremity pain or extremity swelling Skin/Breast: Denies: rash or erythema Neuro: Denies: headache(s), numbness in extremities, weakness in extremities or lack of coordination PFSH ED 2 PFSH: Medical History (Updated 01/12/25 @ 17:05 by Mega Cortez MD) Fatigue Dizziness Aftercare following surgery of the genitourinary system Vulvar warts Thickened endometrium Cervical osteoarthritis B12 deficiency Dizziness of unknown etiology Essential hypertension Unstable angina NSTEMI (non-ST elevated myocardial infarction) Obesity Dyslipidemia History of stroke CAD (coronary artery disease) Surgical History Status post hysteroscopic polypectomy 08/29/2021- hysteroscopic polypectomy via Myosure, excision of left vulvar wart performed by Dr. Isaacs at [facility] History of tubal ligation 1979 History of cataract surgery Family History Father No problems noted. Mother No problems noted. Brother Diabetes Hypertension Colon cancer late 40's-early 50's Sister Colon cancer, Onset Age: 60 Denies family history of Ovarian cancer Clotting disorder Heart disease Hyperlipidemia Breast cancer Anesthesia complication Bleeding disorder Uterine cancer Thyroid disease Stroke Social History Smoking and tobacco/nicotine status: never used tobacco/nicotine Alcohol intake: current Alcohol intake frequency: holidays/special occasions only Alcohol type: hard liquor Substance/Drug Use: never Physical Exam 2 Narrative: EXAM NARRATIVE: Alert, oriented. No nystagmus or focal neurologic problems. Murmur over the mitral space. Const: COMMON NORMALS: no limitations, alert and well nourished EXAM LIMITATIONS: no altered mental status HENMT: COMMON NORMALS: normocephalic, atraumatic and external ears normal H EAD & SCALP: normocephalic and atraumatic EXTERNAL EAR: Yes external ears normal MOUTH: no muffled voice Eye: COMMON NORMALS: EOMs intact bilaterally, conjunctivae normal and no scleral icterus CONJUNCTIVA: Yes conjunctivae normal Neck/C-Spine: COMMON NORMALS: no JVD GENERAL: Yes normal visual inspection and Yes trachea midline Resp: COMMON NORMALS: normal respiratory effort, No use of accessory muscles and clear to auscultation bilaterally AUSCULTATION: clear to auscultation bilaterally Cardio: COMMON NORMALS: no JVD, regular rate and regular rhythm RATE: r egular rate RHYTHM: regular rhythm GI: COMMON NORMALS: Soft to palpation and non-tender PALPATION: Yes Soft to palpation and No Guarding due to palpation present (GI) Extremity: COMMON NORMALS: normal to inspection Neuro: COMMON NORMALS: moves all extremities, no focal motor deficits and no sensory deficits noted SENSORIUM/ORIENTATION: Yes alert SPEECH: speech normal Psych: COMMON NORMALS: mental status grossly normal, Normal thought process present, cooperative, normal affect and speech normal SPEECH: Yes normal speech THOUGHT PROCESS: Normal thought process present Skin: COMMON NORMALS: no rashes or lesions noted, turgor normal and no jaundice GENERAL SKIN EXAM: no rashes or lesions noted and turgor normal Course 2 Vital Signs: Vital signs: Vital Signs Temperature 97.9 F 01/12/25 14:40 Pulse Rate 67 01/12/25 16:25 Respiratory Rate 17 01/12/25 14:40 Blood Pressure 140/73 01/12/25 16:25 Pulse Oximetry 96 01/12/25 15:43 Oxygen Delivery Me thod Room Air 01/12/25 15:43 MDM - Dizziness Medical Decision Making Patient presents with nonspecific weakness. Extremely broad differential diagnosis. CHF, UTI, anemia, aging, deconditioning, hypothyroidism, B12 deficiency, medication side effect, hyponatremia or other electrolyte disturbance, acid-base disturbance, atypical ACS or coronary disease, depression, renal dysfunction, subclinical infection, and large differential diagnosis. Pt does have murmur on exam, endorses orthopnea, and says she's had a mild squeezing pressure in chest. She had some of these same symptoms last time when she got a stent in her heart. Chest x-ray 1 view. EP interpretation. Borderline cardiomegaly. Otherwise no concerning findings. EKG obtained at 1447. EP interpretation. Sinus rhythm, rate 68, QRS is widened 132 ms with a right bundle branch block morphology, there is some nonspecific T wave changes but no concerning sequential ST elevations or depressions. Troponin elevated at 37 Repeat EKG at 1615. EP interpretation. No changes. Orthostatic vital signs are negative. B12 level is low. This may account for the patient being off balance when she walks. I have given her 1000 mcg IM. Patient's troponin is mildly elevated. She did have a stress test last year that she passed. Patient did feel very similar to this last time when she needed a stent. She has had a 3 out of 10 chest pressure squeezing sensation that she says is noticeable but not distracting or painful. She has had dyspnea on exertion. I discussed the case with Dr. Marquez, cardiology. Lab Data 01/12/25 15:25 01/12/25 15:25 Radiology Impressions Chest X-Ray 01/12/25 14:34 IMPRESSION: 1. No acute cardiopulmonary finding. Laboratory Results WBC 10.78 10^3/uL (3.29-11.43) 01/12/25 15: RBC 4.27 10^6/uL (3.85-5.65) 01/12/25 15:25 Hgb 13.20 g/dL (11.27-16.99) 01/12/25 15:25 Hct 40.8 % (36-47) 01/12/25 15:25 MCV 95.6 fl (85-98) 01/12/25 15:25 MCH 30.9 pg (27-33) 01/12/25 15:25 MCHC 32.4 g/dL (30-55) 01/12/25 15:25 RDW 14.2 % (12.1-15.1) 01/12/25 15:25 Plt Count 261 10^3/cmm (157-399) 01/12/25 15:25 MPV 11.8 fL (7.4-10.4) H 01/12/25 15:25 Neut % (Auto) 70.7 % 01/12/25 15:25 Lymph % (Auto) 18.8 % 01/12/25 15:25 [facility] % (Auto) 6.2 % 01/12/25 15:25 Eos % (Auto) 3.2 % 01/12/25 15:25 Baso % (Auto) 0.6 % 01/12/25 15:25 Neut # (Auto) 7.61 10^3/uL (1.8-7.7) 01/12/25 15:25 Lymph # (Auto) 2.0 10^3/uL (0.8-4.8) 01/12/25 15:25 [facility] # (Auto) 0.7 10^3/uL (0.2-0.9) 01/12/25 15:25 Eos # (Auto) 0.4 10^3/uL (0.0-0.8) 01/12/25 15:25 Baso # (Auto) 0.1 10^3/uL (0.0-0.1) 01/12/25 15:25 Nucleated RBC % (auto) 0 % 01/12/25 15: Nucleated RBCs # 0.0 /100WBC 01/12/25 15:25 Sodium 141 mmol/L (136-145) 01/12/25 15:25 Potassium 4.2 mmol/L (3.5-5.1) 01/12/25 15:25 Chloride 108 mmol/L (98-107) H 01/12/25 15:25 Carbon Dioxide 22 mmol/L (22-29) 01/12/25 15:25 Anion Gap 15.2 (5-19) 01/12/25 15:25 BUN 23 mg/dL (8-23) 01/12/25 15:25 Creatinine 0.8 mg/dL (0.5-0.9) 01/12/25 15:25 GFR Calculation Not Reportable 01/12/25 15:25 Glucose 90 mg/dL (65-115) 01/12/25 15:25 Calculated Osmolality 295 mOsm/kg (285-295) 01/12/25 15:25 Lactic Acid 1.4 mmol/L (0.5-2.2) 01/12/25 15:25 Calcium 9.4 mg/dL (8.5-10.5) 01/12/25 15:25 Total Bilirubin 0.4 mg/dL (0.15-1.2) 01/12/25 15:25 AST 17 U/L (0-32) 01/12/25 15:25 ALT 14 U/L (0-33) 01/12/25 15:25 Alkaline Phosphatase 88 U/L (35-105) 01/12/25 15:25 Troponin T Baseline 37 ng/L (0-10) H 01/12/25 15:25 C-Reactive Protein 3.2 mg/L (0.0-4.9) 01/12/25 15:25 NT-Pro-B Natriuret Pep 391 pg/mL (0-450) 01/12/25 15:25 Total Protein 7.0 g/dL (6.6-8.7) 01/12/25 15:25 Albumin 4.2 g/dL (3.5-5.2) 01/12/25 15:25 Globulin 2.8 g/dL (1.3-4.6) 01/12/25 15:25 Vitamin B12 218 pg/mL (232-1245) L 01/12/25 15:25 TSH 3.78 uIU/mL (0.27-4.20) 01/12/25 15:25 Influenza A (PCR) Negative (Negative) 01/12/25 15:42 Influenza Type B (PCR) Negative (Negative) 01/12/25 15:42 RSV (PCR) Negative (Negative) 01/12/25 15:42 SARS-CoV-2 (PCR) Negative (Negative) 01/12/25 15:42 All radiology interpretation(s) finalized by discharge Discharge Plan Discharge Patient Disposition: Placed in Observation Clinical Impression: Dyspnea on exertion, CAD (coronary artery disease), Low vitamin B12 level, Chest pressure, Heart murmur Condition: Stable Prescriptions: No Action losartan 100 mg tablet 100 mg PO BEDTIME cetirizine [Zyrtec] 10 mg tablet 10 mg PO DAILY PRN (Reason: allergies) metoprolol succinate 25 mg tablet extended release 24 hr 12.5 mg PO .q hs Qty: 45 3RF isosorbide mononitrate 30 mg tablet extended release 24 hr 30 mg PO DAILY Qty: 90 3RF clopidogrel 75 mg tablet 75 mg PO DAILY Qty: 90 3RF amlodipine 5 mg tablet 5 mg PO DAILY Qty: 90 3RF atorvastatin 40 mg tablet 40 mg PO DAILY Qty: 90 3RF Referrals: Brittany Ovalles PA [Primary Care Provider] - Print Language: Tanzanian Coding Level of Care Code ED Marketing Executive for Sergio Graham
[2025-01-12 15:48] LABS: Basophils # 0.1 10^3/uL (0.0-0.1); Basophils % 0.6 %; Eosinophils # 0.4 10^3/uL (0.0-0.8); Eosinophils % 3.2 %; Hematocrit 40.8 % (36-47); Lymphocytes % 18.8 %; Mean Corpuscular HGB Conc 32.4 g/dL (30-55); Mean Corpuscular Hemoglobin 30.9 pg (27-33); Mean Corpuscular Volume 95.6 fl (85-98); Mean Platelet Volume 11.8 fL (7.4-10.4); Monocytes # 0.7 10^3/uL (0.2-0.9); Monocytes % 6.2 %; Neutrophils # 7.61 10^3/uL (1.8-7.7); Neutrophils % 70.7 %; Nucleated Red Blood Cells % 0 %; Platelet Count 261 10^3/cmm (157-399); Red Blood Count 4.27 10^6/uL (3.85-5.65); Red Cell Distribution Width 14.2 % (12.1-15.1); White Blood Count 10.78 10^3/uL (3.29-11.43)
[2025-01-12 16:05] LABS: Lactic Sepsis W/Reflex 1.4 mmol/L (0.5-2.2)
[2025-01-12 16:06] LABS: Troponin(5th) Baseline 37 ng/L (0-10)
--- NOTE | 2025-01-12 16:15 | ECG_ITS ---
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 Measurements Intervals [place] Rate: 65 P: 64 [place]: 191 QRS: -19 QRSD: 148 T: 1 QT: 426 QTc: 445 Interpretive Statements SINUS RHYTHM INDETERMINATE AXIS RIGHT BUNDLE BRANCH BLOCK [120+ ms QRS DURATION, UPRIGHT V1, 40+ ms S IN I/aVL/V4/V5/V6] Compared to ECG 01/12/2025 14:47:45 No significant changes Electronically Signed On 01-12-2025 19:38:57 CDT by Sabrina Mix M.D. [id number]
[2025-01-12 16:25] LABS: Alanine Aminotransferase 14 U/L (0-33); Albumin Level 4.2 g/dL (3.5-5.2); Alkaline Phosphatase 88 U/L (35-105); Anion Gap 15.2 (5-19); Aspartate Amino Transferase 17 U/L (0-32); Blood Urea Nitrogen 23 mg/dL (8-23); C Reactive Protein 3.2 mg/L (0.0-4.9); Calcium 9.4 mg/dL (8.5-10.5); Carbon Dioxide 22 mmol/L (22-29); Chloride 108 mmol/L (98-107); Creatinine Clr Calc Pharmacy 59.0011; Globulin 2.8 g/dL (1.3-4.6); Glucose 90 mg/dL (65-115); NT Pro B Type Natriuretic Pept 391 pg/mL (0-450); Osmolality Calculated 295 mOsm/kg (285-295); Potassium 4.2 mmol/L (3.5-5.1); Sodium 141 mmol/L (136-145); Thyroid Stimulating Hormone 3.78 uIU/mL (0.27-4.20); Total Bilirubin 0.4 mg/dL (0.15-1.2); Vitamin B12 218 pg/mL (232-1245)
[2025-01-12 16:26] LABS: Influenza A NEGATIVE (Negative); Influenza B NEGATIVE (Negative); Respiratory Syncytial Virus Ce NEGATIVE (Negative); SARS-CoV-2 PCR NEGATIVE (Negative)
--- NOTE | 2025-01-12 16:35 | ECG_ITS ---
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 Measurements Intervals [place] Rate: 68 P: 67 [place]: 180 QRS: -43 QRSD: 132 T: 1 QT: 412 QTc: 441 Interpretive Statements SINUS RHYTHM INDETERMINATE AXIS RIGHT BUNDLE BRANCH BLOCK [120+ ms QRS DURATION, UPRIGHT V1, 40+ ms S IN I/aVL/V4/V5/V6] Compared to ECG 03/19/2023 20:48:11 Indeterminate axis now present Right bundle-branch block now present Myocardial infarct finding no longer present Electronically Signed On 01-12-2025 19:50:29 CDT by Sabrina Mix M.D. [id number] [id number]
--- NOTE | 2025-01-12 17:00 | USCV_ITS ---
Clemencia Garrison Age: 79 Gender: F : 1945 Exam Date: 01/12/2025 18:45 Ordering Phys: Mega Cortez MD Technologist: FLEX Exam Location: [facility] [place] Indication: YANEZ, murmur, elevated troponin, hx NSTEMI s/p stenting, HL BP: 140 / 78 HR: 66 Rhythm: Sinus Technical Quality: Adequate MEASUREMENTS (Male / Female) Normal Values 2D ECHO LV Diastolic Diameter PLAX 4.6 cm 4.2 - 5.9 / 3.9 - 5.3 cm IVS Diastolic Thickness 1.9 cm 0.6 - 1.0 / 0.6 - 0.9 cm IVS Systolic Thickness 2.5 cm LVPW Diastolic Thickness 1.2 cm 0.6 - 1.0 / 0.6 - 0.9 cm LVPW Systolic Thickness 1.3 cm LVOT Diameter 1.6 cm LV Ejection Fraction 2D Teich 69.9 % LV Ejection Fraction MOD 4C 63.3 % LV Ejection Fraction MOD 2C 53.1 % LV Ejection Fraction 2C AL 52.3 % LA Diameter 5.2 cm Aorta at Sinotubular Diameter 2.7 cm IVC Diameter 1.5 cm M-MODE LA Ao Ratio MM 2.1 AV Cusp Separation MM 2.0 cm DOPPLER AV Peak Velocity 201.0 cm/s LVOT Peak Velocity 184.0 cm/s AV Area Cont Eq vti 2.0 cm squared AV Area Cont Eq pk 1.9 cm squared MV Peak Velocity 171.0 cm/s MV Area PHT 2.8 cm squared Mitral E to A Ratio 1.3 TV Peak Velocity 278.0 cm/s TR Peak Velocity 280.0 cm/s TR Peak Gradient 31.4 mmHg TV Peak E Velocity 53.0 cm/s PV Peak Velocity 129.0 cm/s FINDINGS Left Ventricle Normal left ventricular size, systolic function and wall thickness, with no regional wall motion abnormalities. Left ventricular ejection fraction is estimated at 60 %. Grade II/IV diastolic dysfunction, moderately elevated filling pressures. Right Ventricle Normal right ventricular size. Moderate pulmonary hypertension, RVSP 40 mmHg. Right Atrium The right atrium is normal in size. Left Atrium Moderately increased left atrial size. Mitral Valve Moderately thickened mitral valve. Mild mitral annular calcification. No mitral valve stenosis. Moderate mitral valve regurgitation. Aortic Valve Mild aortic valve calcification. No aortic valve stenosis. Mild aortic valve regurgitation. Tricuspid Valve Mild tricuspid valve regurgitation. Pulmonic Valve Structurally normal pulmonic valve without significant stenosis. There is no pulmonic regurgitation. Pericardium Normal pericardium without effusion. Aorta Normal ascending aorta dimension. IVC The inferior vena cava appears normal. CONCLUSIONS Normal left ventricular size, systolic function and wall thickness, with no regional wall motion abnormalities. Left ventricular ejection fraction is estimated at 60 %. Grade II/IV diastolic dysfunction, moderately elevated filling pressures. Moderately increased left atrial size. Normal right ventricular size. Moderate pulmonary hypertension, RVSP 40 mmHg. Moderately thickened mitral valve. Mild mitral annular calcification. No mitral valve stenosis. Moderate mitral valve regurgitation. There is no pericardial effusion. Right atrial pressure is around 5 mm of mercury. Lourdes Ramachandran MD (Electronically Signed) Final Date: 14 January 2025 08:59 S
[2025-01-12] MEDS: enoxaparin 40 mg/0.4 mL Syringe SUBCUT (17:16)
[2025-01-12] MEDS: aspirin 81 mg Chew Tablet 324 MG PO (17:16)
[2025-01-12] MEDS: cyanocobalamin 1,000 mcg/mL SDV 1000 MCG IM (17:18)
--- NOTE | 2025-01-12 17:56 | P.HP_ITS ---
Providers/Chief Complaint 2 Admitting Physician: Julianna Soria MD Primary Care Provider: Brittany Ovalles Chief Complaint: light headed and weak History of Present Illness Clemencia Garrison is a 79 year old female with past medical history of severe B12 deficiency, hypertension, NSTEMI, s/p PCI, hyperlipidemia, pontine stroke with ocular bobbing, chronic vertigo, left eye blepharospasm presented with complaint of severe weakness since 2 weeks. As per the patient she has been feeling weak since 2 weeks associated with shortness of breath, slight midsternal tightness and orthopnea. Denies any complaint of fever, cold, cough, nausea/vomiting/diarrhea, palpitations or urinary complaints. Denies any history of sick contact or recent travel. She reports being compliant with her medications. She lives at home with her grandson and has been able to do her ADLs. She walks without assistance. In ER she was found to have B12 of 216 For set of troponin was 37 EKG showed sinus rhythm with RBBB, old. Chest x-ray showed no acute findings Received aspirin 324 mg x 1 Lovenox 40 mg subcutaneous Vitamin B12 1000 mcg IM Review of Systems 2 General: Reports: 10 or more systems reviewed and unremarkable except in HPI and below Medications/Allergies Home Medications ?Medication ?Instructions ?Recorded ?Confirmed ?Last Taken ?Type losartan 100 mg tablet 100 mg PO BEDTIME 07/16/21 0 01/12/25 01/11/25 History cetirizine 10 mg tablet (Zyrtec) 10 mg PO DAILY PRN al rubin 01/09/24 01/12/25 Unknown History amlodipine 5 mg tablet 5 mg PO DAILY #90 tabs 06/2101/12/25 01/11/25 Rx atorvastatin 40 mg tablet 40 mg PO DAILY #90 tabs 05/2501/12/25 01/11/25 Rx clopidogrel 75 mg tablet 75 mg PO DAILY #90 tabs 05/2501/12/25 01/11/25 Rx isosorbide mononitrate 30 mg 30 mg PO DAILY #90 tabs 1 09/28/23 01/12/25 01/11/25 Rx tablet,extended release 24 hr metoprolol succinate 25 mg 12.5 mg (1/2 x 25 mg) PO .q hs #45 1101/12/25 01/11/25 Rx tablet,extended release 24 hr tabs Allergies Allergy/AdvReac Type Severity Reaction Status Date / Time Iodinated Contrast Media Allergy ALGY-Hives Verified 01/12/25 14:43 PFSH Acute 2 PFSH: Medical History Fatigue Dizziness Aftercare following surgery of the genitourinary system Vulvar warts Thickened endometrium Cervical osteoarthritis B12 deficiency Dizziness of unknown etiology Essential hypertension Unstable angina NSTEMI (non-ST elevated myocardial infarction) Obesity Dyslipidemia History of stroke CAD (coronary artery disease) Surgical History Status post hysteroscopic polypectomy 08/29/2021- hysteroscopic polypectomy via Myosure, excision of left vulvar wart performed by Dr. Isaacs at [facility] History of tubal ligation 1979 History of cataract surgery Family History Father No problems noted. Mother No problems noted. Brother Diabetes Hypertension Colon cancer late 40's-early 50's Sister Colon cancer, Onset Age: 60 Denies family history of Ovarian cancer Clotting disorder Heart disease Hyperlipidemia Breast cancer Anesthesia complication Bleeding disorder Uterine cancer Thyroid disease Stroke Social History Smoking and tobacco/nicotine status: never used tobacco/nicotine Alcohol intake: current Alcohol intake frequency: holidays/special occasions only Alcohol type: hard liquor Substance/Drug Use: never Vitals/I&O/Wt Last Vital Signs Temp 97.9 F 01/12/25 14:40 Pulse 67 01/12/25 16:25 Resp 17 01/12/25 14:40 BP 140/73 01/12/25 16:25 Pulse Ox 96 01/12/25 15:43 O2 Del Method Room Air 01/12/25 15:43 Weight last 48 hrs Weight 83.915 kg Physical Exam 2 Narrative: She is alert awake oriented x 3, not in acute distress Chest clear to auscultation bilaterally Cardiovascular normal heart sounds, pansystolic murmur present Abdomen soft nontender nondistended normal bowel sounds Extremities no edema noted bilateral lower extremity Data 01/12/25 15:25 01/12/25 15:25 A&P Assessment and plan (1) Weakness: (2) Chest pressure: (3) Dyspnea on exertion: (4) Low vitamin B12 level: (5) Blepharospasm of left eye: (6) Essential hypertension: (7) Dyslipidemia: (8) CAD (coronary artery disease): Qualifiers: Coronary Disease-Associated Artery/Lesion type: [place] artery [place] vs. transplanted heart: [place] heart Associated angina: with unstable angina Q ualified Code(s): I25.110 - Atherosclerotic heart disease of [place] coronary artery with unstable angina pectoris Plan Clemencia Garrison is a 79 year old female with past medical history of severe B12 deficiency, hypertension, NSTEMI, s/p PCI, hyperlipidemia, pontine stroke with ocular bobbing, chronic vertigo, left eye blepharospasm presented with complaint of severe weakness since 2 weeks associated with SOB, orthopnea and mild chest pressure. In ER she was found to have B12 of 216 For set of troponin was 37 EKG was sinus rhythm with old right bundle branch block, no acute ST-T changes Chest x-ray showed no acute findings Received aspirin 324 mg x 1 Lovenox 40 mg subcutaneous Vitamin B12 1000 mcg IM #Symptoms likely secondary to vitamin B12 deficiency Less likely ACS For set of troponin was 37. Follow-up 2 and 6-hour troponins. EKG showed sinus rhythm with old right bundle branch block, no acute ST-T changes Cardiology Dr. Ramachandran consulted in ED, will follow for further recommendations Received aspirin 324 mg x 1 and Lovenox 40 mg x 1 Also received vitamin B12 1000 mcg IM x 1 Admit for observation ECHO 03/14 CONCLUSIONS LV systolic function is normal with EF 55 to 60%. Grade 1 diastolic dysfunction Left atrial dilation Mild mitral regurgitation Mild tricuspid regurgitation Stress test 04/13 Conclusion: 1. Normal EKG response to Lexiscan infusion 2. No Lexiscan induced chest pain or cardiac arrhythmia. 3. Normal blood pressure and heart rate response. 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 Pepcid DVT prophylaxis with subcutaneous Lovenox CODE STATUS discussed with patient, she is full code PDMP PDMP Reviewed: Not Reviewed Attestations 2 Medical Necessity Statement*: She needs hospitalization not crossing 2 midnights for evaluation for weakness, orthopnea and shortness of breath on exertion with echo, cardiology recommendations and supportive care Time Spent in Patient Care: 50minutes Coding Level of Care Code Acute Code for Chg Fwd Diagnoses Weakness R53.1 Chest pressure R07.89 Dyspnea on exertion R06.09 Low vitamin B12 level R79.89 Blepharospasm of left eye G24.5 Essential hypertension I10 Dyslipidemia E78.5 Coronary artery disease involving [place] coronary artery of [place] heart with unstable angina pectoris I25.110 Coronary Disease-Associated Artery/Lesion type: [place] artery [place] vs. transplanted heart: [place] heart Associated angina: with unstable angina Time Spent (min) 50
[2025-01-12 18:27] LABS: Troponin 5 2HR 32.17 ng/L (0-10)
[2025-01-12 18:32] LABS: Troponin 5 2HR Delta -4.83 ABS# (0-10)
--- NOTE | 2025-01-12 18:42 | P.CONIM_ITS ---
<Statement entered by Lourdes Ramachandran MD - 01/12/25 20:47> Patient was evaluated and cared for in conjunction with an advanced practice practitioner. I personally examined the patient and reviewed the chart and all pertinent data including imaging, telemetry, and laboratory results. I discussed the patient in detail with the advanced practice practitioner. Please see their note for complete H&P testing result and agreed upon plan of care for the patient. 79-year-old female past medical history significant for coronary artery disease hypertension presented with worsening of shortness of breath and occasional chest pressure GENERAL: Patient is alert, awake and oriented x3. HEART: Regular S1 and S2. No murmur, rub or gallop. LUNGS: Clear to auscultate bilaterally. CENTRAL NERVOUS SYSTEM: Grossly nonfocal. EXTREMITIES: Lower extremities with out edema bilaterally. Assessment and plan Elevated cardiac marker Worsening of shortness of breath Uncontrolled hypertension Patient has asymptomatic presentation however worsening of shortness of breath on mild exertion cannot rule out ischemic etiology, at this point will monitor her closely I will diurese her as it could be due to high left ventricular end- diastolic pressure, will start her back on home medication and hydralazine on as needed basis to keep her systolic blood pressure less than 140, will keep her n.p.o. overnight with possibility of left heart catheterization which is not confirmed due to atypical symptoms, we will reassess her in the morning further plan will advise as per progress the patient. Providers/Reason For Consult 2 Consulting Physician/Specialty*: Dr. Ramachandran Reason for Consult*: Chest pressure, shortness of breath Requesting Physician: Dr. Cortez Attending Physician: Julianna Soria MD Primary Care Provider: Brittany Ovalles History of Present Illness History of Present Illness Clemencia Garrison is a very pleasant 79 year old female who comes into the ER today with a main complaint of shortness of breath. She states for the past couple weeks she has had some chest pressure at the center of her chest. Denies any nausea or vomiting. She denies any radiating to the jaw or neck. At this time her main complaint is shortness of breath and orthopnea. She states she has shortness of breath at rest at times. She denies any chest pressure or pain at this time. She has a somewhat difficult time describing her symptoms. She has had a previous angiogram in 2022 in which she had a severe 70% distal circumflex in which she underwent PCI with 1 stent. At that time RCA had no significant disease, left main and LAD no disease. Coronary angiography showed right dominance. She states over the past couple weeks she has developed worsening shortness of breath. She states the symptoms are not like the symptoms she was having before when she had her stent. Previous echo in March 2024 showed normal EF 70% without regional wall motion abnormalities with grade 3 out of 4 diastolic dysfunction with moderately increased left atrial size mild mitral valve regurgitation and mild to moderate left ventricular hypertrophy. Previous stress test in March at that time showed small area of prior infarct with minimal hubert-infarct infarct ischemia in the left circumflex territory with normal LV function. Troponin was elevated at 37?32 with delta negative so far but awaiting 6-hour results. proBNP was normal at 391. Her viral panel was negative. Renal function was normal. EKG showed sinus rhythm with right bundle branch block but no significant ST elevation or T wave abnormality seen. Chest x-ray showed no acute cardiopulmonary finding. O2 sat 92% on room air. Patient was seen in the ER with Dr. Ramachandran, and at the time had elevated blood pressure. Review of Systems 2 Narrative: Consitutional: denies fever, chills, body aches, or changes in appetite, denies abnormal weight loss Eyes: Denies changes in vision Card: Denies chest pain, palpitations, irregular heart rhythm, edema, syncope, reports shortness of breath, reports orthopnea Resp: reports shortness of breath on exertion, denies hemoptysis, denies cough GI: denies abdominal pain, denies nausea or voimting Musc: Denies extremity pain, denies limited range of motion or recent injury Skin: Denies rash, lesions, or wounds, denies changes to skin color Neuro: Denies nubmness in extremities, h/a, s/s of stroke Medications/Allergies Home Medications ?Medication ?Instructions ?Recorded ?Confirmed ?Last Taken ?Type losartan 100 mg tablet 100 mg PO BEDTIME 07/16/21 0 01/12/25 01/11/25 History cetirizine 10 mg tablet (Zyrtec) 10 mg PO DAILY PRN al rubin 01/09/24 01/12/25 Unknown History amlodipine 5 mg tablet 5 mg PO DAILY #90 tabs 06/2101/12/25 01/11/25 Rx atorvastatin 40 mg tablet 40 mg PO DAILY #90 tabs 05/2501/12/25 01/11/25 Rx clopidogrel 75 mg tablet 75 mg PO DAILY #90 tabs 05/2501/12/25 01/11/25 Rx isosorbide mononitrate 30 mg 30 mg PO DAILY #90 tabs 1 09/28/23 01/12/25 01/11/25 Rx tablet,extended release 24 hr metoprolol succinate 25 mg 12.5 mg (1/2 x 25 mg) PO .q hs #45 07/29/24 01/12/25 01/11/25 Rx tablet,extended release 24 hr tabs Allergies Allergy/AdvReac Type Severity Reaction Status Date / Time Iodinated Contrast Media Allergy ALGY-Hives Verified 01/12/25 14:43 PFSH Acute 2 PFSH: Medical History Fatigue Dizziness Aftercare following surgery of the genitourinary system Vulvar warts Thickened endometrium Cervical osteoarthritis B12 deficiency Dizziness of unknown etiology Essential hypertension Unstable angina NSTEMI (non-ST elevated myocardial infarction) Obesity Dyslipidemia History of stroke CAD (coronary artery disease) Surgical History Status post hysteroscopic polypectomy 08/29/2021- hysteroscopic polypectomy via Myosure, excision of left vulvar wart performed by Dr. Isaacs at [facility] History of tubal ligation 1979 History of cataract surgery Family History Father No problems noted. Mother No problems noted. Brother Diabetes Hypertension Colon cancer late 40's-early 50's Sister Colon cancer, Onset Age: 60 Denies family history of Ovarian cancer Clotting disorder Heart disease Hyperlipidemia Breast cancer Anesthesia complication Bleeding disorder Uterine cancer Thyroid disease Stroke Social History Smoking and tobacco/nicotine status: never used tobacco/nicotine Alcohol intake: current Alcohol intake frequency: holidays/special occasions only Alcohol type: hard liquor Substance/Drug Use: never Vitals/I&O/Wt Last Vital Signs Temp 97.9 F 01/12/25 14:40 Pulse 67 01/12/25 16:25 Resp 17 01/12/25 14:40 BP 140/73 01/12/25 16:25 Pulse Ox 96 01/12/25 15:43 O2 Del Method Room Air 01/12/25 15:43 Weight last 48 hrs Weight 185 lb Physical Exam 2 Narrative: General: No apparent distress, healthy appearing, well nourished HENMT: normoceophalic Muskuloskeletal: Full ROM Respiratory: Normal respiratory effort, clear to auscultation bilaterally throughout all lung jackson, no use of accessory muscles Cardio: No JVD, regular rate, regular rhythm, S1 S2 normal, no murmurs Extremities: Full ROM, normal, normal capillary refill, no cyanosis or edema Neuro: Alert and oriented x4, no focal motor deficits Psych: Affect normal, mental status grossly normal Skin: No rashes or lesions noted, no wounds Data 01/12/25 15:25 01/12/25 15:25 A&P Assessment and plan (1) CAD (coronary artery disease): Qualifiers: Associated angina: with unstable angina Coronary Disease-Associated Artery/Lesion type: [place] artery [place] vs. transplanted heart: [place] heart Qualified Code(s): I25.110 - Atherosclerotic heart disease of [place] coronary artery with unstable angina pectoris (2) Essential hypertension: (3) Chest pain: Qualifiers: Chest pain type: unspecified Qualified Code(s): R07.9 - Chest pain, unspecified (4) Dyspnea on exertion: Plan Patient's major symptom that she is reporting at this time is shortness of breath. She does have hx of diastolic heart failure. Will get echo, diurese with lasix 40 mg and 20 meq potassium. We will see how she responds with further directions to follow. She may require angiogram in the near future, but at this time she is having orthopnea. She denies any chest pain or pressure at this time. We will re evaluate her in the morning. Will keep her NPO just in case. Agree with home medications for bp management as well as added hydralazine 10 mg q4 hours prn systolic bp greater than or equal to 160. Continue dual antiplatelet therapy. Thank you for allowing us to care for this very pleasant 79 year old patient. PDMP PDMP Reviewed: Not Reviewed Coding Level of Care Code Acute Code for Chg Fwd Diagnoses Coronary artery disease involving [place] coronary artery of [place] heart with unstable angina pectoris I25.110 Associated angina: with unstable angina Coronary Disease-Associated Artery/Lesion type: [place] artery [place] vs. transplanted heart: [place] heart Essential hypertension I10 Chest pain, unspecified type R07.9 Chest pain type: unspecified Dyspnea on exertion R06.09
[2025-01-12] MEDS: losartan 50 mg Tablet 100 MG PO (21:16)
--- NOTE | 2025-01-12 21:24 | ECG_ITS ---
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
[2025-01-12 21:54] LABS: Troponin 5 6HR 30.93 ng/L (0-10); Troponin 5 6HR Delta -6.07 ng/L (0-12)
[2025-01-12] MEDS: acetaminophen 500 mg Tablet 1000 MG PO (22:12)
[2025-01-12] MEDS: potassium chloride ER 20 mEq Tablet PO (22:12)
[2025-01-12] MEDS: FUROsemide 10 mg/mL SDV 4mL 40 MG IVP (22:12)
[2025-01-13] VITALS (8 sets, daily range): BP systolic 100–125; BP diastolic 55–72; PULSE 57–74; RESP 15–18; TEMP 36.3–36.7; O2SAT 92–99
[2025-01-13 05:34] LABS: Basophils # 0.1 10^3/uL (0.0-0.1); Basophils % 0.7 %; Eosinophils # 0.4 10^3/uL (0.0-0.8); Eosinophils % 4.9 %; Hematocrit 40.7 % (36-47); Lymphocytes # 2.2 10^3/uL (0.8-4.8); Lymphocytes % 27.8 %; Mean Corpuscular HGB Conc 29.7 g/dL (30-55); Mean Corpuscular Hemoglobin 30.2 pg (27-33); Mean Corpuscular Volume 101.5 fl (85-98); Mean Platelet Volume 11.7 fL (7.4-10.4); Monocytes # 0.6 10^3/uL (0.2-0.9); Monocytes % 7.9 %; Neutrophils # 4.69 10^3/uL (1.8-7.7); Neutrophils % 58.5 %; Nucleated Red Blood Cells % 0 %; Platelet Count 254 10^3/cmm (157-399); Red Blood Count 4.01 10^6/uL (3.85-5.65); Red Cell Distribution Width 14.3 % (12.1-15.1); White Blood Count 8.02 10^3/uL (3.29-11.43)
[2025-01-13 06:04] LABS: Blood Urea Nitrogen 24 mg/dL (8-23); Calcium 8.6 mg/dL (8.5-10.5); Carbon Dioxide 19 mmol/L (22-29); Chloride 109 mmol/L (98-107); Creatinine Clr Calc Pharmacy 59.8067; Glucose 88 mg/dL (65-115); Magnesium 2.1 mg/dL (1.7-2.3); Osmolality Calculated 291 mOsm/kg (285-295); Sodium 139 mmol/L (136-145)
[2025-01-13] MEDS: acetaminophen 500 mg Tablet 1000 MG PO (09:43)
--- NOTE | 2025-01-13 10:30 | P.PN_ITS ---
<Statement entered by Lourdes Ramachandran MD - 01/13/25 20:19> Patient was evaluated and cared for in conjunction with an advanced practice practitioner. I personally examined the patient and reviewed the chart and all pertinent data including imaging, telemetry, and laboratory results. I discussed the patient in detail with the advanced practice practitioner. Please see their note for complete H&P testing result and agreed upon plan of care for the patient. Patient has diuresed adequately overall feeling better denies any chest pain GENERAL: Patient is alert, awake and oriented x3. HEART: Regular S1 and S2. No murmur, rub or gallop. LUNGS: Clear to auscultate bilaterally. CENTRAL NERVOUS SYSTEM: Grossly nonfocal. EXTREMITIES: Lower extremities with out edema bilaterally. Assessment and plan Worsening of shortness of breath/angina equivalent Diastolic dysfunction acute on chronic Hypertension Continue IV Lasix 40 mg twice daily Plan for Lexiscan MIBI stress test in the morning to rule out obstructive coronary artery disease Subjective 2 Subjective: Patient doing well. She is laying in bed without complaints of shortness of breath. Denies any chest pressure. She states the main reason why she came in was shortness of breath and weakness. She denies any issues with chest pressure or pain. 6-hour troponin was 30.93 with delta negative. Echo was done but not read. Vitals/I&O/Wt Last Vital Signs Temp 98.1 F 01/13/25 07:28 Pulse 58 L 01/13/25 07:28 Resp 15 01/13/25 07:28 BP 112/72 01/13/25 07:28 Pulse Ox 96 01/13/25 07:28 O2 Del Method Room Air 01/13/25 07:28 01/12/25 01/13/25 01/13/25 22:59 06:59 14:59 Intake Total 0 / 0 0 / 0 Output Total 0 / 0 Balance 0 / 0 0 / 0 Weight last 48 hrs Weight 190 lb 1.6 oz Weight 188 lb Weight 185 lb Physical Exam 2 Narrative: General: No apparent distress, healthy appearing, well nourished HENMT: normoceophalic Muskuloskeletal: Full ROM Respiratory: Normal respiratory effort, clear to auscultation bilaterally throughout all lung jackson, no use of accessory muscles Cardio: No JVD, regular rate, regular rhythm, S1 S2 normal, no murmurs Extremities: Full ROM, normal, normal capillary refill, no cyanosis or edema Neuro: Alert and oriented x4, no focal motor deficits Psych: Affect normal, mental status grossly normal Skin: No rashes or lesions noted, no wounds Data 01/13/25 04:56 01/13/25 04:56 A&P Assessment and plan (1) CAD (coronary artery disease): Qualifiers: Coronary Disease-Associated Artery/Lesion type: [place] artery [place] vs. transplanted heart: [place] heart Associated angina: with unstable angina Q ualified Code(s): I25.110 - Atherosclerotic heart disease of [place] coronary artery with unstable angina pectoris (2) Essential hypertension: (3) Chest pain: Qualifiers: Chest pain type: unspecified Qualified Code(s): R07.9 - Chest pain, unspecified (4) Dyspnea on exertion: Plan Patient's Shortness of breath has improved status post 1 dose of IV Lasix. Will give another dose today. Creatinine is stable. She has had a good response to this. Will continue to monitor. Will have the patient get up and walk around today. Will check back in this afternoon. If patient is still having shortness of breath will consider stress test in the morning if not patient possibly may be discharged this afternoon. PDMP PDMP Reviewed: Not Reviewed Attestations 2 Medical Necessity Statement*: Deferred to primary. Coding Level of Care Code Acute Code for [facility] Fwd Diagnoses Coronary artery disease involving [place] coronary artery of [place] heart with unstable angina pectoris I25.110 Coronary Disease-Associated Artery/Lesion type: [place] artery [place] vs. transplanted heart: [place] heart Associated angina: with unstable angina Essential hypertension I10 Chest pain, unspecified type R07.9 Chest pain type: unspecified Dyspnea on exertion R06.09
[2025-01-13] MEDS: amlodipine 5 mg Tablet PO (10:49)
[2025-01-13] MEDS: clopidogrel 75 mg Tablet PO (10:49)
[2025-01-13] MEDS: famotidine 20 mg Tablet PO (10:49)
[2025-01-13] MEDS: aspirin 81 mg EC Tablet PO (10:49)
[2025-01-13] MEDS: isosorbide mononitrate ER 30 mg Tablet PO (10:49)
[2025-01-13] MEDS: atorvastatin 40 mg Tablet PO (10:50)
[2025-01-13] MEDS: FUROsemide 10 mg/mL SDV 4mL 40 MG IVP (11:05)
[2025-01-13] MEDS: potassium chloride ER 20 mEq Tablet PO (11:05)
[2025-01-13] MEDS: enoxaparin 40 mg/0.4 mL Syringe SUBCUT (17:40)
--- NOTE | 2025-01-13 17:42 | PC.NURSE ---
patient refused famotidine, stating she didn't need any.
--- NOTE | 2025-01-13 18:44 | PM.PN ---
Subjective Subjective: no acute overnight events noted. denies any chest pain or discomfort at this time Medications: Reviewed: Yes Vitals/I&O/Wt Last Vital Signs Temp 97.9 F 01/13/25 15:27 Pulse 74 01/13/25 15:27 Resp 16 01/13/25 15:27 BP 100/63 01/13/25 15:27 Pulse Ox 97 01/13/25 15:27 O2 Del Method Room Air 01/13/25 15:27 01/13/25 01/13/25 01/13/25 06:59 14:59 22:59 Intake Total 0 / 0 240 / 240 240 / 480 Balance 0 / 0 240 / 240 240 / 480 Weight last 48 hrs Weight 86.228 kg Weight 85.275 kg Weight 83.915 kg Physical Exam Narrative: She is alert awake oriented x 3, not in acute distress Chest clear to auscultation bilaterally Cardiovascular normal heart sounds, pansystolic murmur present Abdomen soft nontender nondistended normal bowel sounds Extremities no edema noted bilateral lower extremity Data 01/13/25 04:56 01/13/25 04:56 A&P Assessment and plan (1) Weakness: (2) Chest pressure: (3) Dyspnea on exertion: (4) Low vitamin B12 level: (5) Blepharospasm of left eye: (6) Essential hypertension: (7) Dyslipidemia: (8) CAD (coronary artery disease): Qualifiers: Coronary Disease-Associated Artery/Lesion type: [place] artery [place] vs. transplanted heart: [place] heart Associated angina: with unstable angina Qualified Code(s): I25.110 - Atherosclerotic heart disease of [place] coronary artery with unstable angina pectoris Plan Clemencia Garrison is a 79 year old female with past medical history of severe B12 deficiency, hypertension, NSTEMI, s/p PCI, hyperlipidemia, pontine stroke with ocular bobbing, chronic vertigo, left eye blepharospasm presented with complaint of severe weakness since 2 weeks associated with SOB, orthopnea and mild chest pressure. In ER she was found to have B12 of 216 For set of troponin was 37 EKG was sinus rhythm with old right bundle branch block, no acute ST-T changes Chest x-ray showed no acute findings Received aspirin 324 mg x 1 Lovenox 40 mg subcutaneous Vitamin B12 1000 mcg IM #Symptoms likely secondary to vitamin B12 deficiency Less likely ACS For set of troponin was 37. Follow-up 2 and 6-hour troponins. EKG showed sinus rhythm with old right bundle branch block, no acute ST-T changes Cardiology Dr. Ramachandran consulted in ED, will follow for further recommendations Received aspirin 324 mg x 1 and Lovenox 40 mg x 1 Also received vitamin B12 1000 mcg IM x 1 Admit for observation ECHO 03/14 CONCLUSIONS LV systolic function is normal with EF 55 to 60%. Grade 1 diastolic dysfunction Left atrial dilation Mild mitral regurgitation Mild tricuspid regurgitation Stress test 04/13 Conclusion: 1. Normal EKG response to Lexiscan infusion 2. No Lexiscan induced chest pain or cardiac arrhythmia. 3. Normal blood pressure and heart rate response. #Hypertension-continue MANAGER QA amlodipine, metoprolol #CAD s/p PCI-continue MANAGER QA atorvastatin, Imdur and Plavix #Chronic vertigo-stable GI prophylaxis with p.o. Pepcid DVT prophylaxis with subcutaneous Lovenox CODE STATUS discussed with patient, she is full code 01/13/25 She is stable, denies any chest pain. Will follow up cardiology for further plan. Follow up ECHO. PDMP PDMP Reviewed: Not Reviewed Attestations Medical Necessity Statement*: anticipating discharge in am Time Spent in Patient Care: 15minutes Coding Level of Care Code Acute Code for Chg Fwd Diagnoses Weakness R53.1 Chest pressure R07.89 Dyspnea on exertion R06.09 Low vitamin B12 level R79.89 Blepharospasm of left eye G24.5 Essential hypertension I10 Dyslipidemia E78.5 Coronary artery disease involving [place] coronary artery of [place] heart with unstable angina pectoris I25.110 Coronary Disease-Associated Artery/Lesion type: [place] artery [place] vs. transplanted heart: [place] heart Associated angina: with unstable angina Time Spent (min) 15
--- NOTE | 2025-01-13 21:52 | PC.NURSE ---
patient has 100mg losartan and 12.5mg metoprolol due at 2d100, her blood pressure reading was 100/65 at 2030. blood pressure meds held due to blood pressure.
[2025-01-14 00:40] VITALS: BP 119/71; PULSE 62; RESP 16; TEMP 36.6; O2SAT 95
[2025-01-14 04:56] VITALS: BP 124/69; PULSE 51; RESP 19; TEMP 36.5; O2SAT 97; BMI 31.6
[2025-01-14 05:33] LABS: Basophils # 0.1 10^3/uL (0.0-0.1); Basophils % 0.7 %; Eosinophils # 0.5 10^3/uL (0.0-0.8); Eosinophils % 4.8 %; Hematocrit 40.2 % (36-47); Lymphocytes # 2.2 10^3/uL (0.8-4.8); Lymphocytes % 23.3 %; Mean Corpuscular HGB Conc 32.1 g/dL (30-55); Mean Corpuscular Hemoglobin 31.2 pg (27-33); Mean Corpuscular Volume 97.1 fl (85-98); Mean Platelet Volume 11.6 fL (7.4-10.4); Monocytes # 0.7 10^3/uL (0.2-0.9); Monocytes % 7.8 %; Neutrophils % 63.2 %; Nucleated Red Blood Cells % 0 %; Platelet Count 244 10^3/cmm (157-399); Red Blood Count 4.14 10^6/uL (3.85-5.65); Red Cell Distribution Width 14.3 % (12.1-15.1); White Blood Count 9.51 10^3/uL (3.29-11.43)
[2025-01-14 06:00] LABS: Anion Gap 14.5 (5-19); Blood Urea Nitrogen 27 mg/dL (8-23); Carbon Dioxide 22 mmol/L (22-29); Chloride 107 mmol/L (98-107); Glucose 100 mg/dL (65-115); Osmolality Calculated 293 mOsm/kg (285-295); Potassium 4.5 mmol/L (3.5-5.1); Sodium 139 mmol/L (136-145)
[2025-01-14 07:53] VITALS: BP 134/73; PULSE 61; RESP 16; TEMP 36.4; O2SAT 94
[2025-01-14] MEDS: famotidine 20 mg Tablet PO (09:30)
[2025-01-14] MEDS: atorvastatin 40 mg Tablet PO (09:30)
[2025-01-14] MEDS: FUROsemide 10 mg/mL SDV 4mL 40 MG IVP (09:30)
[2025-01-14] MEDS: isosorbide mononitrate ER 30 mg Tablet PO (09:30)
[2025-01-14] MEDS: aspirin 81 mg EC Tablet PO (09:30)
[2025-01-14] MEDS: clopidogrel 75 mg Tablet PO (09:30)
[2025-01-14] MEDS: potassium chloride ER 20 mEq Tablet PO (09:30)
[2025-01-14] MEDS: amlodipine 5 mg Tablet PO (09:30)
--- NOTE | 2025-01-14 10:43 | P.PN_ITS ---
<Statement entered by Lourdes Ramachandran MD - 01/14/25 19:35> Patient was evaluated and cared for in conjunction with an advanced practice practitioner. I personally examined the patient and reviewed the chart and all pertinent data including imaging, telemetry, and laboratory results. I discussed the patient in detail with the advanced practice practitioner. Please see their note for complete H&P testing result and agreed upon plan of care for the patient. Patient has improved shortness of breath cloud but still remains short of breath upon mild exertion. GENERAL: Patient is alert, awake and oriented x3. HEART: Regular S1 and S2. No murmur, rub or gallop. LUNGS: Clear to auscultate bilaterally. CENTRAL NERVOUS SYSTEM: Grossly nonfocal. EXTREMITIES: Lower extremities with out edema bilaterally. Assessment and plan Acute decompensated diastolic heart failure on chronic: Now compensated Moderate to severe mitral regurgitation Ischemic cardiomyopathy with preserved ejection fraction Recommended dobutamine stress echo To assess worsening of MR at high heart rate, patient would not like to wait therefore he can be discharged home on 40 mg of p.o. Lasix every day along with 20 mEq of potassium chloride continue aspirin statin beta-los and DALTON inhibitor Will follow her up in the cardiology clinic, upon assessing and ruling out ischemic burden through stress test and MR burden upon exertion may further plan will be advised such as left heart cath and mitral valve clipping Subjective 2 Subjective: Patient states she is still having shortness of breath on exertion relieved with rest. She states she is very winded when she exerts herself. Denies any chest pain at this time. Echo was reviewed showing moderate MR. Normal EF. Vitals/I&O/Wt Last Vital Signs Temp 97.6 F 01/14/25 07:53 Pulse 61 01/14/25 07:53 Resp 16 01/14/25 07:53 BP 134/73 01/14/25 07:53 Pulse Ox 94 01/14/25 07:53 O2 Del Method Room Air 01/14/25 07:53 01/13/25 01/14/25 01/14/25 22:59 06:59 14:59 Intake Total 440 / 680 300 / 980 Output Total 1000 / 1000 Balance -560 / -320 300 / -20 Weight last 48 hrs Weight 190 lb Weight 190 lb 1.6 oz Weight 188 lb Weight 185 lb Physical Exam 2 Narrative: General: No apparent distress, healthy appearing, well nourished HENMT: normoceophalic Muskuloskeletal: Full ROM Respiratory: Normal respiratory effort, clear to auscultation bilaterally throughout all lung jackson, no use of accessory muscles Cardio: No JVD, regular rate, regular rhythm, S1 S2 normal, no murmurs Extremities: Full ROM, normal, normal capillary refill, no cyanosis or edema Neuro: Alert and oriented x4, no focal motor deficits Psych: Affect normal, mental status grossly normal Skin: No rashes or lesions noted, no wounds Data 01/14/25 05:17 01/14/25 05:17 A&P Assessment and plan (1) CAD (coronary artery disease): Qualifiers: Associated angina: with unstable angina Coronary Disease-Associated Artery/Lesion type: [place] artery [place] vs. transplanted heart: [place] heart Qualified Code(s): I25.110 - Atherosclerotic heart disease of [place] coronary artery with unstable angina pectoris (2) Essential hypertension: (3) Chest pain: Qualifiers: Chest pain type: unspecified Qualified Code(s): R07.9 - Chest pain, unspecified (4) Dyspnea on exertion: Plan Patient is still having significant shortness of breath on exertion. She does have evidence of at least moderate MR on echo. She also has some pulmonary hypertension. Cannot rule out underlying ischemia as the cause for worsening shortness of breath as well as worsening MR due to possible underlying circumflex abnormality. She states she is doing about the same as far as shortness of breath goes. She is getting Lasix IV for diastolic dysfunction. We would like to get a dobutamine stress echo to evaluate whether her MR worsens with an increase of workload. If this is the case, patient may require cath in the future and possible mitral valve clipping. Unfortunately, we do not have that test available today. Patient would need to wait until Friday. She wants to go home. We will see her in the clinic within 1 week and order the test on an outpatient basis. She will be discharged on lasix as well. At this time, she is stable. PDMP PDMP Reviewed: Not Reviewed Attestations 2 Medical Necessity Statement*: Deferred to primary Coding Level of Care Code Acute Code for [facility] Fwd Diagnoses Coronary artery disease involving [place] coronary artery of [place] heart with unstable angina pectoris I25.110 Associated angina: with unstable angina Coronary Disease-Associated Artery/Lesion type: [place] artery [place] vs. transplanted heart: [place] heart Essential hypertension I10 Chest pain, unspecified type R07.9 Chest pain type: unspecified Dyspnea on exertion R06.09
[2025-01-14] MEDS: cyanocobalamin 1,000 mcg/mL SDV 1000 MCG IM (10:59)
--- NOTE | 2025-01-14 11:12 | P.DS_ITS ---
Discharge Providers Date of Admission: 01/12/25 17:13 Date of Discharge: January 14, 2025 Attending Provider at Admission: Julianna Soria MD Attending Provider at Discharge: Julianna Soria MD Primary Care Provider: Brittany Ovalles Diagnoses at Discharge Discharge Diagnosis (1) CAD (coronary artery disease): Status: Acute Qualifiers: Coronary Disease-Associated Artery/Lesion type: [place] artery [place] vs. transplanted heart: [place] heart Associated angina: with unstable angina Qualified Code(s): I25.110 - Atherosclerotic heart disease of [place] coronary artery with unstable angina pectoris (2) Essential hypertension: Status: Acute (3) Chest pain: Status: Acute Qualifiers: Chest pain type: unspecified Qualified Code(s): R07.9 - Chest pain, unspecified (4) Dyspnea on exertion: Status: Acute Reason for Visit Reason for Visit: light headed and weak Brief History: Clemencia Garrison is a 79 year old female with past medical history of severe B12 deficiency, hypertension, NSTEMI, s/p PCI, hyperlipidemia, pontine stroke with ocular bobbing, chronic vertigo, left eye blepharospasm presented with complaint of severe weakness since 2 weeks. As per the patient she has been feeling weak since 2 weeks associated with shortness of breath, slight mid sternal tightness and orthopnea. Denies any complaint of fever, cold, cough, nausea/vomiting/diarrhea, palpitations or urinary complaints. Denies any history of sick contact or recent travel. She reports being compliant with her medications. She lives at home with her grandson and has been able to do her ADLs. She walks without assistance. In ER she was found to have B12 of 216 For set of troponin was 37 EKG showed sinus rhythm with RBBB, old. Chest x-ray showed no acute findings Received aspirin 324 mg x 1 Lovenox 40 mg subcutaneous Vitamin B12 1000 mcg IM Hospital Course Hospital Course #Symptoms likely secondary to vitamin B12 deficiency Less likely ACS For set of troponin was 37. Follow-up 2 and 6-hour troponins. EKG showed sinus rhythm with old right bundle branch block, no acute ST-T changes Cardiology Dr. Ramachandran consulted in ED, will follow for further recommendations Received aspirin 324 mg x 1 and Lovenox 40 mg x 1 Also received vitamin B12 1000 mcg IM x 1 Admit for observation Patient has asymptomatic presentation however worsening of shortness of breath on mild exertion cannot rule out ischemic etiology, at this point will monitor her closely I will diurese her as it could be due to high left ventricular end- diastolic pressure, plan was to diurese her. received lasix iv 40mgx2. plan was to get get stress test but then no availability of the dose, hence plan to get dobutamine echo as outpatient. Will discharge her home today, follow up in outpatient cardiology clinic. she will need to take po lasix 40mg daily with po potassium 20meq daily. Physical Exam Narrative: She is alert awake oriented x 3, not in acute distress Chest clear to auscultation bilaterally Cardiovascular normal heart sounds, pansystolic murmur present Abdomen soft nontender nondistended normal bowel sounds Extremities no edema noted bilateral lower extremity Discharge Data Studies Completed and Pending Completed Studies During Hospitalization Category Date Time Status XR chest 1V portable [id number] Stat Exams 01/12/25 14:34 Completed CV. echo complete* [id number] Urgent Ultrasound 01/12/25 17:00 Completed Pending at discharge Category Date Time Status Cardiac Stress Test MIBI [Sestamibi Stress Test Request Exams 01/14/25 07:58 Ordered ] Routine Cardiac Stress Test Request NOW Exams 01/14/25 10:23 Ordered Urinalysis and Microscopic Stat Lab 01/13/25 18:25 Ordered NM radha perf SPECT r/s* [id number] Routine Nuc Med 01/14/25 07:58 Ordered CV. [place] contr [id number] NOW Ultrasound 01/14/25 10:24 Ordered Radiology Impressions Chest X-Ray 01/12/25 14:34 IMPRESSION: 1. No acute cardiopulmonary finding. Laboratory Results WBC 9.51 10^3/uL (3.29-11.43) 01/14/25 05:17 RBC 4.14 10^6/uL (3.85-5.65) 01/14/25 05:17 Hgb 12.90 g/dL (11.27-16.99) 01/14/25 05:17 Hct 40.2 % (36-47) 01/14/25 05:17 MCV 97.1 fl (85-98) 01/14/25 05:17 MCH 31.2 pg (27-33) 01/14/25 05:17 MCHC 32.1 g/dL (30-55) D 01/14/25 05:17 RDW 14.3 % (12.1-15.1) 01/14/25 05:17 Plt Count 244 10^3/cmm (157-399) 01/14/25 05:17 MPV 11.6 fL (7.4-10.4) H 01/14/25 05:17 Neut % (Auto) 63.2 % 01/14/25 05:17 Lymph % (Auto) 23.3 % 01/14/25 05:17 [place] % (Auto) 7.8 % 01/14/25 05:17 Eos % (Auto) 4.8 % 01/14/25 05:17 Baso % (Auto) 0.7 % 01/14/25 05:17 Neut # (Auto) 6.00 10^3/uL (1.8-7.7) 01/14/25 05:17 Lymph # (Auto) 2.2 10^3/uL (0.8-4.8) 01/14/25 05:17 [place] # (Auto) 0.7 10^3/uL (0.2-0.9) 01/14/25 05:17 Eos # (Auto) 0.5 10^3/uL (0.0-0.8) 01/14/25 05:17 Baso # (Auto) 0.1 10^3/uL (0.0-0.1) 01/14/25 05:17 Nucleated RBC % (auto) 0 % 01/14/25 05:17 Nucleated RBCs # 0.0 /100WBC 01/14/25 05:17 Sodium 139 mmol/L (136-145) 01/14/25 05:17 Potassium 4.5 mmol/L (3.5-5.1) 01/14/25 05:17 Chloride 107 mmol/L (98-107) 01/14/25 05:17 Carbon Dioxide 22 mmol/L (22-29) 01/14/25 05:17 Anion Gap 14.5 (5-19) 01/14/25 05:17 BUN 27 mg/dL (8-23) H 01/14/25 05:17 Creatinine 0.8 mg/dL (0.5-0.9) 01/14/25 05:17 GFR Calculation Not Reportable 01/14/25 05:17 Glucose 100 mg/dL (65-115) 01/14/25 05:17 Calculated Osmolality 293 mOsm/kg (285-295) 01/14/25 05:17 Lactic Acid 1.4 mmol/L (0.5-2.2) 01/12/25 15:25 Calcium 9.0 mg/dL (8.5-10.5) 01/14/25 05:17 Magnesium 2.1 mg/dL (1.7-2.3) 01/13/25 04:56 Total Bilirubin 0.4 mg/dL (0.15-1.2) 01/12/25 15:25 AST 17 U/L (0-32) 01/12/25 15:25 ALT 14 U/L (0-33) 01/12/25 15:25 Alkaline Phosphatase 88 U/L (35-105) 01/12/25 15:25 Troponin T Baseline 37 ng/L (0-10) H 01/12/25 15:25 Troponin T 120 Minute 32.17 ng/L (0-10) H 01/12/25 18:03 Delta Troponin T -4.83 ABS# (0-10) L 01/12/25 18:03 Troponin T Hi Sens 6Hr 30.93 ng/L (0-10) H 01/12/25 21:31 Troponin T Hi Sens 6Hr Delta -6.07 ng/L (0-12) L 01/12/25 21:31 C-Reactive Protein 3.2 mg/L (0.0-4.9) 01/12/25 15:25 NT-Pro-B Natriuret Pep 391 pg/mL (0-450) 01/12/25 15:25 Total Protein 7.0 g/dL (6.6-8.7) 01/12/25 15:25 Albumin 4.2 g/dL (3.5-5.2) 01/12/25 15:25 Globulin 2.8 g/dL (1.3-4.6) 01/12/25 15:25 Vitamin B12 218 pg/mL (232-1245) L 01/12/25 15:25 TSH 3.78 uIU/mL (0.27-4.20) 01/12/25 15:25 Influenza A (PCR) Negative (Negative) 01/12/25 15:42 Influenza Type B (PCR) Negative (Negative) 01/12/25 15:42 RSV (PCR) Negative (Negative) 01/12/25 15:42 SARS-CoV-2 (PCR) Negative (Negative) 01/12/25 15:42 Vitals Last Vital Signs Temp 97.6 F 01/14/25 07:53 Pulse 61 01/14/25 07:53 Resp 16 01/14/25 07:53 BP 134/73 01/14/25 07:53 Pulse Ox 94 01/14/25 07:53 O2 Del Method Room Air 01/14/25 07:53 Discharge Plan Discharge Patient Disposition: Home Condition: Stable Prescriptions: New aspirin 81 mg Tablet,Delayed Release (Dr/Ec) 81 mg PO DAILY 30 Days Qty: 30 0RF potassium chloride [Klor-Con M20] 20 mEq Tablet,Er Particles/Crystals 20 meq PO DAILY 30 Days Qty: 30 0RF furosemide [Lasix] 40 mg tablet 40 mg PO DAILY Qty: 30 0RF Continued losartan 100 mg tablet 100 mg PO BEDTIME cetirizine [Zyrtec] 10 mg tablet 10 mg PO DAILY PRN (Reason: allergies) metoprolol succinate 25 mg tablet extended release 24 hr 12.5 mg PO .q hs Qty: 45 3RF isosorbide mononitrate 30 mg tablet extended release 24 hr 30 mg PO DAILY Qty: 90 3RF clopidogrel 75 mg tablet 75 mg PO DAILY Qty: 90 3RF amlodipine 5 mg tablet 5 mg PO DAILY Qty: 90 3RF atorvastatin 40 mg tablet 40 mg PO DAILY Qty: 90 3RF Discharge Orders: Discharge Order (Routine); Ordered 01/14/25 Ordered By: Julianna Soria Referrals: Libby Melara FNP [Nurse Practitioner] - 4-7 days (Needs to be seen in clinic within 1 week) Brittany Ovalles PA [Primary Care Provider] - 01/21/25 9:00 am Discharge Diet: Cardiac Discharge Activity: Increase activity as tolerated Patient Instructions: Opioid Safety Discharge Attestations Time Spent in Discharge Care*: less than 30 min Status at Discharge: Cognitive status at discharge: cognitively intact , Behavioral status at discharge: cooperative , Quality Metrics Clinical Quality Measures [ No reported AMI, CVA or VTE this stay] Coding Level of Care Code Acute Code for Chg Fwd Diagnoses Coronary artery disease involving [place] coronary artery of [place] heart with unstable angina pectoris I25.110 Coronary Disease-Associated Artery/Lesion type: [place] artery [place] vs. transplanted heart: [place] heart Associated angina: with unstable angina Essential hypertension I10 Chest pain, unspecified type R07.9 Chest pain type: unspecified Dyspnea on exertion R06.09 Time Spent (min) 15
[2025-01-14 11:41] VITALS: BP 106/64; PULSE 66; RESP 17; TEMP 36.5; O2SAT 96
[2025-01-14 13:34] VITALS: BP 106/64; PULSE 66; O2SAT 96
== END 2025-01-14 13:38 | disposition home or self-care (01) ==
LOC: ER 17:05 → ER IP 17:14 → MEDSURG 18:24
PROVIDERS: Emergency Medicine; Admitting Provider Internal Medicine; Emergency Provider Emergency Medicine; PCP Physician Assistant; Visit Provider Internal Medicine
DX: I25.110 Atherosclerotic heart disease of native coronary artery with unstable angina pectoris (principal); I10 Essential (primary) hypertension; R06.09 Other forms of dyspnea; E53.8 Deficiency of other specified B group vitamins; I25.2 Old myocardial infarction; E78.5 Hyperlipidemia, unspecified; Z86.73 Personal history of transient ischemic attack (TIA), and cerebral infarction without residual deficits; G24.5 Blepharospasm; Z95.5 Presence of coronary angioplasty implant and graft; E66.9 Obesity, unspecified; Z68.31 Body mass index [BMI] 31.0-31.9, adult
CPT/HCPCS: 36415; 71045; 80048; 80053; 82607; 83605; 83735; 83880; 84443; 84484; 85025; 86140; 87637; 93005; 93306; 96372; 96374; 96376; 99285; G0378; J1650; J1940; J3420; J9999

== ENCOUNTER → 2025-01-21 10:22 | Outpatient (BNVA) | payer MEDICARE, MEDICAID, SELFPAY | PROVIDERS: PCP Physician Assistant; Visit Provider Nurse Practitioner Family | DX: I25.9 Chronic ischemic heart disease, unspecified (principal); I11.0 Hypertensive heart disease with heart failure; I50.20 Unspecified systolic (congestive) heart failure; I34.0 Nonrheumatic mitral (valve) insufficiency; Z95.5 Presence of coronary angioplasty implant and graft; I25.10 Atherosclerotic heart disease of native coronary artery without angina pectoris; R53.1 Weakness; R06.09 Other forms of dyspnea | CPT/HCPCS: 99214 ==

== ENCOUNTER 2025-03-14 07:57 | Outpatient (CLI) | payer MEDICARE, MEDICAID, SELFPAY ==
--- NOTE | 2025-03-14 08:10 | MR_ITS ---
WS: [id number] MRI HEAD WITH CONTRAST TECHNIQUE: Sagittal T1, T2 axial, T2 axial FLAIR, axial susceptibility weighted imaging, axial diffusion weighted images, and coronal T2 images were obtained. Pre and post-T1 axial and post T1 coronal images. ADC and FSPGR images. CLINICAL INFORMATION: VERTIGO COMPARISON: 03/10/2023 FINDINGS: No evidence of restricted diffusion to suggest acute ischemia. Ventricular system and basal cisterns are patent. Moderate small vessel changes. Moderate parenchymal volume loss. Parenchymal volume loss has progressed since 2022. Small vessel changes are slightly progressed. Normal posterior fossa. Chronic lacunar infarcts LEFT cerebellum. Normal vascular flow voids at the skull base. No extra-axial fluid collections. Chronic lacunar infarcts LEFT thalamus. Paranasal sinuses are well aerated. LEFT mastoid effusion. Normal posterior nasopharynx. No hemosiderin on the susceptibility weighted images. Normal optic chiasm and pituitary infundibulum. Mild symmetric atrophy temporal lobes and hippocampal formations. No abnormal gadolinium enhancement. Normal dural venous sinuses. MR/MR head wo/w con [id number] IMPRESSION: 1. No evidence of restricted diffusion to suggest acute ischemia. 2. Moderate small vessel changes with moderate parenchymal volume loss progres sed compared to 2022. Parenchymal volume loss more prominent in the parietal lo bes. 3. Chronic lacunar infarcts in the LEFT thalamus and LEFT cerebellum 4. LEFT mastoid effusion. 5. No other acute findings.
[2025-03-14] MEDS: gadobenate dimeglumine 20 mL vial 18 ML IV (08:40)
== END 2025-03-14 07:58 | disposition home or self-care (01) ==
LOC: RAD 07:57
PROVIDERS: PCP Physician Assistant; Visit Provider Physician Assistant
DX: R42 Dizziness and giddiness (principal)
CPT/HCPCS: 70553

== ENCOUNTER → 2025-05-16 09:47 | Outpatient (BNVA) | payer MEDICARE, MEDICAID, SELFPAY | PROVIDERS: PCP Physician Assistant; Visit Provider Dermatology | DX: L82.1 Other seborrheic keratosis (principal); D22.5 Melanocytic nevi of trunk; Z08 Encounter for follow-up examination after completed treatment for malignant neoplasm; Z85.828 Personal history of other malignant neoplasm of skin; D48.5 Neoplasm of uncertain behavior of skin | CPT/HCPCS: 11102; 17000; 99213 ==

== ENCOUNTER 2025-05-30 12:32 | Emergency (ER) | payer OTHER, MEDICAID, SELFPAY ==
[2025-05-30 12:35] VITALS: BP 157/79; PULSE 67; TEMP 36.7; O2SAT 99
--- NOTE | 2025-05-30 12:40 | ECG_ITS ---
[facility] 2025[facility]30 Pat Name: Clemencia Garrison Department: Room: Gender: Female Diamond Cleaver: : 1945 Requested By: Saskia Jeter Order Number: [id number] Wendy MD: León Vicente M.D. Measurements Intervals [place] Rate: 69 P: 58 SC: 170 QRS: -55 QRSD: 140 T: 0 QT: 403 QTc: 433 Interpretive Statements SINUS RHYTHM RIGHT BUNDLE BRANCH BLOCK [120+ ms QRS DURATION, UPRIGHT V1, 40+ ms S IN I/aVL/V4/V5/V6] LEFT ANTERIOR FASCICULAR BLOCK [QRS AXIS <= -45, QR IN I, RS IN II] INTERPRETATION BASED ON A DEFAULT AGE OF 40 YEARS Compared to ECG 01/12/2025 21:24:17 No significant change Electronically Signed On 06-01-2025 20:21:39 CDT by León Vicente M.D. [id number]
--- NOTE | 2025-05-30 12:43 | XR_ITS ---
WS: [id number] Portable AP upright chest, 05/30/2025 Clinical Data: Weakness Comparison: Portable chest, 01/12/2025 Findings: No nodules, masses or effusions are seen. The heart is normal. The pulmonary vascularity is not increased. No pneumonia or pneumothorax is seen. The aortic arch and descending thoracic aorta show calcification and tortuosity. There is an orthopedic anchor in the right humeral head. XR/XR chest 1V portable [id number] Impression: Atherosclerosis.
--- OUTSIDE RECORDS SUMMARY | 2025-05-30 12:44 | XMS_ITS | Clinical Summary ---
[facility] Organization [facility] Address [address] [address] Phone Care Team Providers Care Hoisting Engineer Name Role Phone Thomas Beltre DO Primary Care Provider Allergies No known active allergies Medications diphenoxylate-a tropine 2.5-0.025 mg tablet Take 2 Tablet by mouth 4 times daily as needed for Diarrhea/Loose Stools May substitute generic Imodium (loperamide) but with a limit of 4 per 24 hours.. 6 Active Social History Tobacco Use Types Packs/Day Years Used Date Smoking Tobacco: Never Tobacco Cessation:Counseling Given: Yes Comments No Sex and Gender Information Value Date Recorded Sex Assigned at Not on file Legal Sex Female 11:13 AM INSURANCE CONSULTANT Gender Identity Not on file Sexual Orientation Not on file Last Filed Vital Signs Vital Sign Reading Time Taken Comments Blood Pressure 114/76 09/07/2016 1:27 PM INSURANCE CONSULTANT Pulse - - Temperature 37.1 C (98.7 F) 09/07/2016 1:27 PM INSURANCE CONSULTANT Respiratory Rate 14 09/07/2016 1:27 PM INSURANCE CONSULTANT Oxygen Saturation 97% 09/07/2016 1:27 PM INSURANCE CONSULTANT Inhaled Oxygen Concentration - - Weight 78.2 kg (172 lb 8 oz) 09/07/2016 11:20 AM INSURANCE CONSULTANT Height 165.1 cm (5' 5 ) 09/07/2016 11:20 AM INSURANCE CONSULTANT Body Mass Index 28.71 09/07/2016 11:20 AM INSURANCE CONSULTANT Plan of Treatment Health Maintenance Due Date Last Done Comments DTAP/TDAP/TD VACCINES (1 - Tdap) 12/29/1962 PNEUMOCOCCAL VACCINE 50+ YEARS (1 of 1 - PCV) 12/29/18 94 ZOSTER VACCINE (1 of 2) 12/29/1993 OSTEOPOROSIS SCREENING 12/29/2008 RSV VACCINE (60+ or ) (1 - 1-dose 75+ series) 12/29/2018 INFLUENZA VACCINE (#1) 2025 Insurance [address] [place] [id number] [facility] [employer] G[employer]US [id number] HMO Care Teams Hoisting Engineer Relationship Specialty Start Date End Date Thomas Beltre DO [address] [place] [address] [place] [address] PCP - General Family Practice 09/07/16
--- OUTSIDE RECORDS SUMMARY | 2025-05-30 12:44 | XMS_ITS | Clinical Summary ---
Author Organization [employer] Address [address] [facility] Attn: Epic Prelude ADT ABBY MILLER [address] Care Team Providers Care Band Saw Operator Cake Cutting Name Role Phone Thomas Beltre DO Primary Care Provider Allergies No known active allergies Medications diphenoxylate-a tropine 2.5 mg-0.025 mg tablet Take 2 Tablet by mouth 4 times daily as needed for Diarrhea/Loose Stools May substitute generic Imodium (loperamide) but with a limit of 4 per 24 hours.. 6 Active Social History Tobacco Use Types Packs/Day Years Used Date Smoking Tobacco: Never Comments Unknown Sex and Gender Information Value Date Recorded Sex Assigned at Not on file Legal Sex Female 12:47 PM HUMAN RESOURCES ASSOCIATE Gender Identity Not on file Sexual Orientation Not on file Last Filed Vital Signs Vital Sign Reading Time Taken Comments Blood Pressure 114/76 09/07/2016 1:27 PM HUMAN RESOURCES ASSOCIATE Pulse - - Temperature 37.1 C (98.7 F) 09/07/2016 1:27 PM HUMAN RESOURCES ASSOCIATE Respiratory Rate 14 09/07/2016 1:27 PM HUMAN RESOURCES ASSOCIATE Oxygen Saturation - - Inhaled Oxygen Concentration - - Weight 78.2 kg (172 lb 8 oz) 09/07/2016 11:20 AM HUMAN RESOURCES ASSOCIATE Height 165.1 cm (5' 5 ) 09/07/2016 11:20 AM HUMAN RESOURCES ASSOCIATE Body Mass Index 28.71 09/07/2016 11:20 AM HUMAN RESOURCES ASSOCIATE Plan of Treatment Health Maintenance Due Date Last Done Comments DTAP/TDAP/TD VACCINES (1 - Tdap) 12/29/1962 PNEUMOCOCCAL VACCINE 50+ YEARS (1 of 1 - PCV) 12/29/18 94 ZOSTER VACCINE (1 of 2) 12/29/1993 OSTEOPOROSIS SCREENING 12/29/2008 RSV VACCINE (60+ or ) (1 - 1-dose 75+ series) 12/29/2018 INFLUENZA VACCINE (#1) 2025 Care Teams Band Saw Operator Cake Cutting Relationship Specialty Start Date End Date Thomas Beltre DO [address] [address] PCP - General Family Practice 09/07/16
--- NOTE | 2025-05-30 14:43 | ECG_ITS ---
[employer] [facility] Test Date: 2025-05-30 Pat Name: Clemencia Garrison Department: Room: Gender: Female Surveillance Analyst: : 1945 Requested By: Saskia Jeter Order Number: [id number] Wendy MD: León Vicente M.D. Measurements Intervals [place] Rate: 63 P: 41 MI: 171 QRS: -46 QRSD: 137 T: -1 QT: 427 QTc: 440 Interpretive Statements SINUS RHYTHM LEFT ANTERIOR FASCICULAR BLOCK RIGHT BUNDLE BRANCH BLOCK [120+ ms QRS DURATION, UPRIGHT V1, 40+ ms S IN I/aVL/V4/V5/V6] Compared to ECG 05/30/2025 12:40:48 No significant change Electronically Signed On 06-01-2025 22:58:45 CDT by León Vicente M.D. [email or web address] [email or web address]
[2025-05-30 14:45] VITALS: BP 154/80; PULSE 66; O2SAT 97
--- NOTE | 2025-05-30 16:32 | ED_ITS ---
HPI - Weakness 2 General: Chief complaint: Weakness Stated complaint: weak dizzy Time Seen by Provider: 05/30/25 12:43 History of Present Illness: 79-year-old female with a history of hyp ertension, coronary artery disease, obesity, hyperlipidemia and a stroke who presents to the emergency room with weakness and dizziness. Is been going on for a few days. She says the weakness is her primary concern. She is been dizzy for years now. Apparently she has some chronic vertigo. Says she has had some intermittent chest discomfort. Related Data Home Medications ?Medication ?Instructions ?Recorded ?Confirmed losartan 100 mg tablet 100 mg PO BEDTIME 07/16/21 0 01/21/25 cetirizine 10 mg tablet (Zyrtec) 10 mg PO DAILY PRN al lergies 01/09/24 01/21/25 Previous Rx's ?Medication ?Instructions ?Recorded amlodipine 5 mg tablet 5 mg PO DAILY #90 tabs 06/21 atorvastatin 40 mg tablet 40 mg PO DAILY #90 tabs 05/25 clopidogrel 75 mg tablet 75 mg PO DAILY #90 tabs 05/25 isosorbide mononitrate 30 mg 30 mg PO DAILY #90 tabs 1 09/28/23 tablet,extended release 24 hr metoprolol succinate 25 mg 12.5 mg (1/2 x 25 mg) PO .q hs #45 07/29/24 tablet,extended release 24 hr tabs furosemide 40 mg tablet (Lasix) 40 mg PO DAILY #30 tab s 01/14/25 dexamethasone 6 mg tablet 6 mg PO DAILY 5 days #5 tabs 05/30/25 doxycycline hyclate 100 mg capsule 100 mg PO BID 7 day s #14 caps 05/30/25 Allergies Allergy/AdvReac Type Severity Reaction Status Date / Time Iodinated Contrast Media Allergy ALGY-Hives Verified 05/30/25 12:45 Review of Systems 2 Narrative: Constitutional symptoms: Negative except as documented in HPI. Skin symptoms: Negative except as documented in HPI. Eye symptoms: Negative except as documented in HPI. ENMT symptoms: Negative except as documented in HPI. Respiratory symptoms: Negative except as documented in HPI. Cardiovascular symptoms: Negative except as documented in HPI. Gastrointestinal symptoms: Negative except as documented in HPI. Genitourinary symptoms: Negative except as documented in HPI. Musculoskeletal symptoms: Negative except as documented in HPI. Neurologic symptoms: Negative except as documented in HPI. Psychiatric symptoms: Negative except as documented in HPI. Endocrine symptoms: Negative except as documented in HPI. PFSH ED 2 PFSH: Medical History (Updated 05/30/25 @ 19:14 by Saskia Castillo MD) Blepharospasm of left eye Fatigue Dizziness Aftercare following surgery of the genitourinary system Vulvar warts Thickened endometrium Cervical osteoarthritis B12 deficiency Dizziness of unknown etiology Essential hypertension Unstable angina NSTEMI (non-ST elevated myocardial infarction) Obesity Dyslipidemia History of stroke CAD (coronary artery disease) Surgical History (Updated 01/15/25 @ 00:01 by KANIKA Hayes) Status post hysteroscopic polypectomy 08/29/2021- hysteroscopic polypectomy via Myosure, excision of left vulvar wart performed by Dr. Isaacs at [facility] History of tubal ligation 1979 History of cataract surgery Family History Father No problems noted. Mother No problems noted. Brother Diabetes Hypertension Colon cancer late 40's-early 50's Sister Colon cancer, Onset Age: 60 Denies family history of Ovarian cancer Clotting disorder Heart disease Hyperlipidemia Breast cancer Anesthesia complication Bleeding disorder Uterine cancer Thyroid disease Stroke Social History Smoking and tobacco/nicotine status: never used tobacco/nicotine Alcohol intake: current Alcohol intake frequency: holidays/special occasions only Alcohol type: hard liquor Substance/Drug Use: never Physical Exam 2 Narrative: EXAM NARRATIVE: General: Alert, no acute distress. Skin: Warm, dry. Head: Normocephalic, atraumatic. Neck: Supple, trachea midline. Eye: Extraocular movements are intact. Ears, nose, mouth and throat: mucosa moist. Cardiovascular: Regular, Normal peripheral perfusion. Respiratory: Lungs are clear to auscultation, respirations are non-labored, breath sounds are equal, Symmetrical chest wall expansion. Gastrointestinal: Soft, Nontender, Non distended Musculoskeletal: Normal ROM, no deformity. Neurological: Alert and oriented, No focal neurological deficit observed. Psychiatric: Cooperative, appropriate mood & affect. Course 2 Vital Signs: Vital signs: Vital Signs Temperature 98.1 F 05/30/25 12:35 Pulse Rate 85 05/30/25 18:30 Blood Pressure 171/67 05/30/25 18:30 Pulse Oximetry 99 05/30/25 18:30 Oxygen Delivery Me thod Room Air 05/30/25 18:30 MDM - Weakness Medical Decision Making Medical decision making: Differential diagnosis for patient presenting with generalized weakness including but not limited to and based on the above HPI, review of systems and physical exam: Sepsis. Dehydration. Renal failure. Electrolyte abnormalities. Anemia. Congestive heart failure. Hypotension. Coronary syndrome. Hepatitis. Cirrhosis. Infections such as pneumonia, urinary tract infection, [place] illness, Cellulitis, Viral infections including influenza and Covid-19. Workup: labwork and lab/exam driven imaging ordered to evaluate, rule in and rule out above pathologies. EKG: Time 1240. Rate 69. Normal sinus rhythm, No ST-T changes, no ectopy, right bundle branch block, LAFB, this was reviewed and interpreted by myself the ER physician at 1246 Repeat EKG: Time 1820. Rate 63. Normal sinus rhythm, No ST-T changes, no ectopy, right bundle branch block, LAFB, this was reviewed and interpreted by myself the ER physician at 1823. No changes from EKG done previously today in the emergency room. Chest x-ray: No acute process. No infiltrate. No pneumothorax. This was reviewed and interpreted by myself the emergency room physician. I also reviewed the radiology report. Lab Review: Laboratory results were reviewed and interpreted by myself the emergency room physician. No leukocytosis. No anemia. No renal failure. Urinalysis is negative for infection. I reviewed the patient's medical record. 79-year-old female with a history of hypertension, coronary artery disease, obesity, hyperlipidemia and a stroke Reexamination: Patient remained stable. No increased work of breathing. No altered mental status. No focal motor deficits. Assessment and plan: Upper respiratory infection Generalized weakness ? Decadron and doxycycline in the emergency room - Discharged home - Discussed plan with patient. Answered any questions. - Evaluation and treatment of this problem were appropriate in the emergency setting. Lab Data 05/30/25 16:32 05/30/25 16:32 Radiology Impressions Chest X-Ray 05/30/25 12:43 Impression: Atherosclerosis. Laboratory Results WBC 10.02 10^3/uL (3.29-11.43) 05/30/25 16:32 RBC 4.43 10^6/uL (3.85-5.65) 05/30/25 16:32 Hgb 13.80 g/dL (11.27-16.99) 05/30/25 16:32 Hct 41.9 % (36-47) 05/30/25 16:32 MCV 94.6 fl (85-98) 05/30/25 16:32 MCH 31.2 pg (27-33) 05/30/25 16:32 MCHC 32.9 g/dL (30-55) 05/30/25 16:32 RDW 14.2 % (12.1-15.1) 05/30/25 16:32 Plt Count 290 10^3/cmm (157-399) 05/30/25 16:32 MPV 11.8 fL (7.4-10.4) H 05/30/25 16:32 Neut % (Auto) 66.4 % 05/30/25 16:32 Lymph % (Auto) 22.6 % 05/30/25 16:32 Reeves % (Auto) 6.8 % 05/30/25 16:32 Eos % (Auto) 3.2 % 05/30/25 16:32 Baso % (Auto) 0.6 % 05/30/25 16:32 Neut # (Auto) 6.66 10^3/uL (1.8-7.7) 05/30/25 16:32 Lymph # (Auto) 2.3 10^3/uL (0.8-4.8) 05/30/25 16:32 Reeves # (Auto) 0.7 10^3/uL (0.2-0.9) 05/30/25 16:32 Eos # (Auto) 0.3 10^3/uL (0.0-0.8) 05/30/25 16:32 Baso # (Auto) 0.1 10^3/uL (0.0-0.1) 05/30/25 16:32 Nucleated RBC % (auto) 0 % 05/30/25 16:32 Nucleated RBCs # 0.0 /100WBC 05/30/25 16:32 Sodium 140 mmol/L (136-145) 05/30/25 16:32 Potassium 4.2 mmol/L (3.5-5.1) 05/30/25 16:32 Chloride 106 mmol/L (98-107) 05/30/25 16:32 Carbon Dioxide 24 mmol/L (22-29) 05/30/25 16:32 Anion Gap 14.2 (5-19) 05/30/25 16:32 BUN 17 mg/dL (8-23) 05/30/25 16:32 Creatinine 0.8 mg/dL (0.5-0.9) 05/30/25 16:32 GFR Calculation Not Reportable 05/30/25 16:32 Glucose 83 mg/dL (65-115) 05/30/25 16:32 Calculated Osmolality 291 mOsm/kg (285-295) 05/30/25 16:32 Lactic Acid 1.1 mmol/L (0.5-2.2) 05/30/25 16:32 Calcium 9.5 mg/dL (8.5-10.5) 05/30/25 16:32 Total Bilirubin 0.6 mg/dL (0.15-1.2) 05/30/25 16:32 AST 18 U/L (0-32) 05/30/25 16:32 ALT 14 U/L (0-33) 05/30/25 16:32 Alkaline Phosphatase 90 U/L (35-105) 05/30/25 16:32 Troponin T Baseline 20 ng/L (0-10) H 05/30/25 16:32 Troponin T 120 Minute 20.34 ng/L (0-10) H 05/30/25 18:48 Delta Troponin T 0.34 ABS# (0-10) 05/30/25 18:48 Total Protein 7.2 g/dL (6.6-8.7) 05/30/25 16:32 Albumin 4.3 g/dL (3.5-5.2) 05/30/25 16:32 Globulin 2.9 g/dL (1.3-4.6) 05/30/25 16:32 Urine Color Yellow (Yellow) 05/30/25 17:27 Urine Appearance Clear (CLEAR) 05/30/25 17:27 Urine pH 7.0 (5-7) 05/30/25 17:27 Ur Specific [place] 1.017 (1.005-1.030) 05/30/25 17:27 Urine Protein Negative (Negative) 05/30/25 17:27 Urine Glucose (UA) Negative (Normal) 05/30/25 17:27 Urine Ketones Negative (Negative) 05/30/25 17:27 Urine Blood Negative (Negative) 05/30/25 17:27 Urine Nitrate Negative (Negative) 05/30/25 17:27 Urine Bilirubin Negative (Negative) 05/30/25 17:27 Urine Urobilinogen 1.0 mg/dL (Negative) 05/30/25 17:27 Ur Leukocyte Esterase Trace (Negative) A 05/30/25 17:27 Urine RBC 0-2 /hpf (0-2) 05/30/25 17:27 Urine WBC 0-5 /hpf (0-5) 05/30/25 17:27 Ur Squamous Epith Cells 0-5 /hpf (0-5) 05/30/25 17:27 Amorphous Sediment Not Reportable 05/30/25 17:27 Urine Bacteria None seen /hpf (NONE) 05/30/25 17:27 Hyaline Casts 0.81 /lpf 05/30/25 17:27 All radiology interpretation(s) finalized by discharge Discharge Plan Discharge Patient Disposition: Home Clinical Impression: Acute upper respiratory infection, Generalized weakness Condition: Stable Prescriptions: New doxycycline hyclate 100 mg capsule 100 mg PO BID 7 Days Qty: 14 0RF dexamethasone 6 mg tablet 6 mg PO DAILY 5 Days Qty: 5 0RF No Action losartan 100 mg tablet 100 mg PO BEDTIME cetirizine [Zyrtec] 10 mg tablet 10 mg PO DAILY PRN (Reason: allergies) metoprolol succinate 25 mg tablet extended release 24 hr 12.5 mg PO .q hs Qty: 45 3RF isosorbide mononitrate 30 mg tablet extended release 24 hr 30 mg PO DAILY Qty: 90 3RF clopidogrel 75 mg tablet 75 mg PO DAILY Qty: 90 3RF amlodipine 5 mg tablet 5 mg PO DAILY Qty: 90 3RF atorvastatin 40 mg tablet 40 mg PO DAILY Qty: 90 3RF furosemide [Lasix] 40 mg tablet 40 mg PO DAILY Qty: 30 0RF Discharge Orders: Discharge ED (Routine); Ordered 05/30/25 Ordered By: Saskia Castillo Referrals: Brittany Ovalles PA [Primary Care Provider, Physicians Alarm Installer] Discharge Diet: Usual diet Discharge Activity: Increase activity as tolerated Patient Instructions: Upper Respiratory Infection (ED), Opioid Safety, Pain Management, Patient Portal & Jocy Instructions Activity Restrictions/Additional Instructions: [facility] you [facility] your healthcare needs today. You have been screened and evaluated and felt safe for discharge. Health conditions do change or evolve sometimes and as such it is important that you follow up with your Primary Doctor to be re checked, 3-5 days is a general good time frame for follow up. You are always welcome to return to the ED for re assessment if your symptoms are worsening or you have new concerns Print Language: Chinese Coding Level of Care Code ED Tile Grinder for Sergio Graham
[2025-05-30 16:50] LABS: Hematocrit 41.9 % (36-47); Hemoglobin 13.80 g/dL (11.27-16.99); Mean Corpuscular HGB Conc 32.9 g/dL (30-55); Mean Corpuscular Hemoglobin 31.2 pg (27-33); Mean Corpuscular Volume 94.6 fl (85-98); Nucleated Red Blood Cells % 0 %; Platelet Count 290 10^3/cmm (157-399); Red Blood Count 4.43 10^6/uL (3.85-5.65); White Blood Count 10.02 10^3/uL (3.29-11.43)
[2025-05-30 17:00] VITALS: BP 194/96; PULSE 64; O2SAT 100
[2025-05-30 17:16] LABS: Alanine Aminotransferase 14 U/L (0-33); Albumin Level 4.3 g/dL (3.5-5.2); Alkaline Phosphatase 90 U/L (35-105); Aspartate Amino Transferase 18 U/L (0-32); Blood Urea Nitrogen 17 mg/dL (8-23); Calcium 9.5 mg/dL (8.5-10.5); Carbon Dioxide 24 mmol/L (22-29); Chloride 106 mmol/L (98-107); Creatinine Clr Calc Pharmacy 58.2113; Globulin 2.9 g/dL (1.3-4.6); Glucose 83 mg/dL (65-115); Osmolality Calculated 291 mOsm/kg (285-295); Sodium 140 mmol/L (136-145); Total Protein 7.2 g/dL (6.6-8.7)
[2025-05-30 17:17] LABS: Troponin(5th) Baseline 20 ng/L (0-10)
[2025-05-30 17:21] LABS: Lactic Sepsis W/Reflex 1.1 mmol/L (0.5-2.2)
[2025-05-30 17:28] LABS: Anion Gap 14.2 (5-19); Potassium 4.2 mmol/L (3.5-5.1)
[2025-05-30 17:50] LABS: Glucose Urine UA Negative (Normal); Nitrate Urine Negative (Negative); Specific Gravity, Urine 1.017 (1.005-1.030)
--- NOTE | 2025-05-30 18:20 | ECG_ITS ---
[facility] Test Date: 2025-05-30 Pat Name: Clemencia Garrison Department: Room: Gender: Female Rn Iv Therapy: : 1945 Requested By: Saskia Jeter Order Number: [id number] Wendy MD: León Vicente M.D. Measurements Intervals [place] Rate: 63 P: 51 NH: 187 QRS: -41 QRSD: 142 T: 6 QT: 433 QTc: 446 Interpretive Statements SINUS RHYTHM LEFT AXIS DEVIATION [QRS AXIS < -30] RIGHT BUNDLE BRANCH BLOCK [120+ ms QRS DURATION, UPRIGHT V1, 40+ ms S IN I/aVL/V4/V5/V6] Compared to ECG 05/30/2025 14:49:17 No significant changes Electronically Signed On 06-01-2025 23:11:39 CDT by León Vicente M.D. [id number]
[2025-05-30 18:30] VITALS: BP 171/67; PULSE 85; O2SAT 99
[2025-05-30 19:11] LABS: Troponin 5 2HR 20.34 ng/L (0-10); Troponin 5 2HR Delta 0.34 ABS# (0-10)
[2025-05-30 19:36] VITALS: BP 190/79; PULSE 64; O2SAT 98
[2025-05-31 22:42] LABS: Bacillus cereus group Not Detected (NOT DETECT); Bacillus subtillis group Not Detected (NOT DETECT); Corynebacterium Not Detected (NOT DETECT); Cutibacterium acnes (P.acnes) Not Detected (NOT DETECT); Enterococcus faecalis Not Detected (NOT DETECT); Enterococcus faecium Not Detected (NOT DETECT); Listeria Not Detected (NOT DETECT); Micrococcus Not Detected (NOT DETECT); Pan Candida Not Detected (NOT DETECT); Pan Gram-Negative Not Detected (NOT DETECT); Staphylococcus epidermidis Detected (NOT DETECT); Staphylococcus lugdunensis Not Detected (NOT DETECT); Staphylococcus species Detected (NOT DETECT); Streptococcus anginosus group Not Detected (NOT DETECT); Streptococcus pyogenes Not Detected (NOT DETECT); Streptococcus species Not Detected (NOT DETECT); mecA Detected (NOT DETECT); mecC Not Detected (NOT DETECT)
== END 2025-05-30 19:37 | disposition home or self-care (01) ==
PROVIDERS: Emergency Provider Emergency Medicine; PCP Physician Assistant
DX: J06.9 Acute upper respiratory infection, unspecified (principal); R53.1 Weakness; Z79.01 Long term (current) use of anticoagulants; E78.5 Hyperlipidemia, unspecified; I25.10 Atherosclerotic heart disease of native coronary artery without angina pectoris; I10 Essential (primary) hypertension
CPT/HCPCS: 36415; 71045; 80053; 81001; 83605; 84484; 85025; 87040; 87150; 87205; 93005; 96372; 99285; J1100; J9999

== ENCOUNTER 2025-06-08 01:00 | Observation (INO) | payer OTHER, MEDICAID, SELFPAY ==
[2025-06-08] VITALS (31 sets, daily range): BP systolic 88–179; BP diastolic 47–89; PULSE 61–147; RESP 14–31; TEMP 36.4–36.9; O2SAT 93–100; BMI 29.9; BMI 32.5
--- NOTE | 2025-06-08 01:01 | ECG_ITS ---
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 Measurements Intervals [place] Rate: 88 P: 0 FL: 0 QRS: -23 QRSD: 138 T: 1 QT: 374 QTc: 454 Interpretive Statements ATRIAL FIBRILLATION INDETERMINATE AXIS RIGHT BUNDLE BRANCH BLOCK [120+ ms QRS DURATION, UPRIGHT V1, 40+ ms S IN I/aVL/V4/V5/V6] INTERPRETATION BASED ON A DEFAULT AGE OF 40 YEARS Compared to ECG 05/30/2025 18:20:23 Indeterminate axis now present Sinus rhythm no longer present Left-axis deviation no longer present Electronically Signed On 06-08-2025 13:45:29 CDT by Sabrina Mix M.D. [email or web address] [id number]
--- OUTSIDE RECORDS SUMMARY | 2025-06-08 01:04 | XMS_ITS | Clinical Summary ---
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 Gender Identity Not on file Sexual Orientation Not on file Last Filed Vital Signs Vital Sign Reading Time Taken Comments Blood Pressure 114/76 09/07/2016 1:27 PM INSTRUMENT DESIGNER Pulse - - Temperature 37.1 C (98.7 F) 09/07/2016 1:27 PM INSTRUMENT DESIGNER Respiratory Rate 14 09/07/2016 1:27 PM INSTRUMENT DESIGNER Oxygen Saturation 97% 09/07/2016 1:27 PM INSTRUMENT DESIGNER Inhaled Oxygen Concentration - - Weight 78.2 kg (172 lb 8 oz) 09/07/2016 11:20 AM INSTRUMENT DESIGNER Height 165.1 cm (5' 5 ) 09/07/2016 11:20 AM INSTRUMENT DESIGNER Body Mass Index 28.71 09/07/2016 11:20 AM INSTRUMENT DESIGNER Plan of Treatment Health Maintenance Due Date Last Done Comments DTAP/TDAP/TD VACCINES (1 - Tdap) 12/29/1962 PNEUMOCOCCAL VACCINE 50+ YEARS (1 of 1 - PCV) 12/29/18 94 ZOSTER VACCINE (1 of 2) 12/29/1993 OSTEOPOROSIS SCREENING 12/29/2008 RSV VACCINE (60+ or ) (1 - 1-dose 75+ series) 12/29/2018 INFLUENZA VACCINE (#1) 2025 Insurance [address] [place] [id number] [facility] [employer] GOLD PLUS [id number] HMO Care Teams Core Sucker Relationship Specialty Start Date End Date Thomas Beltre DO [address] [place] [address] [place] [address] PCP - General Family Practice 09/07/16
--- OUTSIDE RECORDS SUMMARY | 2025-06-08 01:04 | XMS_ITS | Clinical Summary ---
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 TRUCK DRIVER Respiratory Rate 14 09/07/2016 1:27 PM REGIONAL OWNER OPERATOR TRUCK DRIVER Oxygen Saturation - - Inhaled Oxygen Concentration - - Weight 78.2 kg (172 lb 8 oz) 09/07/2016 11:20 AM REGIONAL OWNER OPERATOR TRUCK DRIVER Height 165.1 cm (5' 5 ) 09/07/2016 11:20 AM REGIONAL OWNER OPERATOR TRUCK DRIVER Body Mass Index 28.71 09/07/2016 11:20 AM 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
--- NOTE | 2025-06-08 01:13 | XRR_ITS ---
PROCEDURE INFORMATION: Exam: XR Chest Exam date and time: 06/08/2025 1:13 AM Age: 79 years old Clinical indication: Pain; Angina pectoris; Prior surgery; Surgery date: 6+ months; Surgery type: Stent placement; Additional info: Chest pain TECHNIQUE: Imaging protocol: Radiologic exam of the chest. Views: 1 view. COMPARISON: CR XR chest 1V portable [id number] 05/30/2025 12:59 PM FINDINGS: Lungs: Subtle basilar interstitial prominence. Pleural spaces: Unremarkable. No pleural effusion. No pneumothorax. Heart/Mediastinum: Unremarkable. No cardiomegaly. Vasculature: Atherosclerotic changes of the aorta are noted. Bones/joints: Right humeral suture anchors are present. Other findings: Vague at XR/XR chest 1V portable [id number] IMPRESSION: Findings which could be suggestive of minimal, basilar predominant, pulmonary vascular congestion or interstitial pneumonia. No pneumonic consolidation.
--- NOTE | 2025-06-08 01:18 | ED_ITS ---
HPI - Chest Pain 2 General: Chief Complaint: Chest Pain Stated Complaint: cp Time Seen by Provider: 06/08/25 01:02 History of Present Illness: 79-year-old female with a history of hyp ertension, hyperlipidemia, history of stroke, history of coronary artery disease status post stents and obesity who presents to the emergency room with chest pain by ambulance. This started a few hours back. She had a tightness in her chest that was central and partially to the left. She says she was not feeling very good at all day. Just tired and malaise. EMS reports a heart rate in the 160s to 180s. She was given diltiazem and slowed down. On presentation here her heart rate is around 110 and she is in atrial fibrillation. Says she does not have a history of atrial fibrillation. Once her heart rate slowed down her chest pain has gone away. She is currently chest pain-free. No abdominal pain. No nausea and vomiting. No altered mental status. Related Data Home Medications ?Medication ?Instructions ?Recorded ?Confirmed losartan 100 mg tablet 100 mg PO BEDTIME 07/16/21 0 01/21/25 cetirizine 10 mg tablet (Zyrtec) 10 mg PO DAILY PRN al lergies 01/09/24 01/21/25 Previous Rx's ?Medication ?Instructions ?Recorded amlodipine 5 mg tablet 5 mg PO DAILY #90 tabs 06/21 atorvastatin 40 mg tablet 40 mg PO DAILY #90 tabs 05/25 clopidogrel 75 mg tablet 75 mg PO DAILY #90 tabs 05/25 isosorbide mononitrate 30 mg 30 mg PO DAILY #90 tabs 1 09/28/23 tablet,extended release 24 hr metoprolol succinate 25 mg 12.5 mg (1/2 x 25 mg) PO .q hs #45 07/29/24 tablet,extended release 24 hr tabs furosemide 40 mg tablet (Lasix) 40 mg PO DAILY #30 tab s 01/14/25 Allergies Allergy/AdvReac Type Severity Reaction Status Date / Time Iodinated Contrast Media Allergy ALGY-Hives Verified 05/30/25 12:45 Review of Systems 2 Narrative: Constitutional symptoms: Negative except as documented in HPI. Skin symptoms: Negative except as documented in HPI. Eye symptoms: Negative except as documented in HPI. ENMT symptoms: Negative except as documented in HPI. Respiratory symptoms: Negative except as documented in HPI. Cardiovascular symptoms: Negative except as documented in HPI. Gastrointestinal symptoms: Negative except as documented in HPI. Genitourinary symptoms: Negative except as documented in HPI. Musculoskeletal symptoms: Negative except as documented in HPI. Neurologic symptoms: Negative except as documented in HPI. Psychiatric symptoms: Negative except as documented in HPI. Endocrine symptoms: Negative except as documented in HPI. PFSH ED 2 PFSH: Medical History (Updated 06/08/25 @ 03:05 by Saskia Castillo MD) Blepharospasm of left eye Fatigue Dizziness Aftercare following surgery of the genitourinary system Vulvar warts Thickened endometrium Cervical osteoarthritis B12 deficiency Dizziness of unknown etiology Essential hypertension Unstable angina NSTEMI (non-ST elevated myocardial infarction) Obesity Dyslipidemia History of stroke CAD (coronary artery disease) Surgical History (Updated 01/15/25 @ 00:01 by KANIKA Hayes) Status post hysteroscopic polypectomy 08/29/2021- hysteroscopic polypectomy via Myosure, excision of left vulvar wart performed by Dr. Isaacs at [facility] History of tubal ligation 1979 History of cataract surgery Family History Father No problems noted. Mother No problems noted. Brother Diabetes Hypertension Colon cancer late 40's-early 50's Sister Colon cancer, Onset Age: 60 Denies family history of Ovarian cancer Clotting disorder Heart disease Hyperlipidemia Breast cancer Anesthesia complication Bleeding disorder Uterine cancer Thyroid disease Stroke Social History Smoking and tobacco/nicotine status: never used tobacco/nicotine Alcohol intake: current Alcohol intake frequency: holidays/special occasions only Alcohol type: hard liquor Substance/Drug Use: never Physical Exam 2 Narrative: EXAM NARRATIVE: General: Alert, no acute distress. Skin: Warm, dry. Head: Normocephalic, atraumatic. Neck: Supple, trachea midline. Eye: Extraocular movements are intact. Ears, nose, mouth and throat: mucosa moist. Cardiovascular: Irregular, Normal peripheral perfusion. Respiratory: Lungs are clear to auscultation, respirations are non-labored, breath sounds are equal, Symmetrical chest wall expansion. Gastrointestinal: Soft, Nontender, Non distended Musculoskeletal: Normal ROM, no deformity. Neurological: Alert and oriented, No focal neurological deficit observed. Psychiatric: Cooperative, appropriate mood & affect. Course 2 Vital Signs: Vital signs: Vital Signs Temperature 98.4 F 06/08/25 01:00 Pulse Rate 100 06/08/25 02:15 Respiratory Rate 25 H 06/08/25 02:15 Blood Pressure 111/74 06/08/25 02:15 Pulse Oximetry 97 06/08/25 02:15 Oxygen Delivery Me thod Room Air 06/08/25 01:00 MDM - Chest Pain Medical Decision Making Differential diagnosis for patient with chest pain includes but is not limited to and based on the above HPI, review of systems and physical exam: Pneumonia. unstable angina. angina. Acute coronary syndrome / NM. Pulmonary embolism. Costochondritis / musculoskeletal. Pleurisy. Pericarditis. Esophageal spasm. Pancreatis. Cholecystitis. Orders placed to evaluate differential diagnosis based on the above differential, HPI and physical exam EKG: Time 1:01 AM. Rate 88. Atrial fibrillation with controlled rate, No ST-T changes, no ectopy, right bundle branch block. This was reviewed and interpreted by myself the ER physician at 1:06 AM Chest x-ray: Possible interstitial pneumonia. This was reviewed and interpreted by myself the emergency room physician. I also reviewed the radiology report. CT of the chest without contrast: This was ordered secondary to abnormal chest x-ray. They do not see any acute process. This was reviewed and interpreted by myself the emergency room physician. I also reviewed the radiology report. Lab Review: Laboratory results were reviewed and interpreted by myself the emergency room physician. Patient does have leukocytosis with a white count of 16.5. No anemia. I reviewed the patient's medical record. 79-year-old female with a history of hypertension, hyperlipidemia, history of stroke, history of coronary artery disease status post stents and obesity. No documented history of A-fib and she reports no history of A-fib Reexamination: She started to become more tachycardic and remains in atrial fibrillation. Blood pressure has been low. 80s and 90s systolic so started her on amiodarone and giving her some fluids. Her BUN is elevated over her baseline so she may be somewhat dehydrated. No increased work of breathing. No altered mental status. No focal motor deficits. She does report some continued cough and has some leukocytosis. May be secondary to steroids but given her low blood pressure, high white count I am starting her on some antibiotics for possible respiratory infection. Assessment and plan: Atrial fibrillation with rapid ventricular response New onset atrial fibrillation Hypotension Leukocytosis Chest pain Elevated troponin ?Normal saline bolus, amiodarone bolus and amiodarone drip -I discussed the patient with the hospitalist on-call who is admitting the patient. - Discussed findings and plan with patient. Answered any questions. - All laboratory values were reviewed and interpreted personally by myself, the ER physician - All imaging was reviewed and interpreted personally by myself, the ER physician. - Evaluation and treatment of this problem were appropriate in the emergency setting Lab Data 06/08/25 00:40 06/08/25 00:40 Radiology Impressions Chest X-Ray 06/08/25 01:13 IMPRESSION: Findings which could be suggestive of minimal, basilar predominant, pulmonary vascular congestion or interstitial pneumonia. No pneumonic consolidation. Chest CT 06/08/25 02:14 IMPRESSION: 1. No acute pulmonary process. 2. Cardiomegaly. 3. Moderate to severe three-vessel coronary atherosclerosis. COMMENTS: Consistent with the [place] [employer]'s Incidental Findings Committee white paper (J Am Vivienne Radiol 2018): Any incidental renal lesion less than 1 cm or classified as too small to characterize, or any incidental cystic renal lesion characterized as simple-appearing, is likely benign. No follow-up imaging is recommended for these lesions per consensus recommendations based on imaging criteria. Laboratory Results WBC 16.49 10^3/uL (3.29-11.43) H 06/08/25 00:40 RBC 4.57 10^6/uL (3.85-5.65) 06/08/25 00:40 Hgb 14.00 g/dL (11.27-16.99) 06/08/25 00:40 Hct 41.9 % (36-47) 06/08/25 00:40 MCV 91.7 fl (85-98) 06/08/25 00:40 MCH 30.6 pg (27-33) 06/08/25 00:40 MCHC 33.4 g/dL (30-55) 06/08/25 00:40 RDW 14.6 % (12.1-15.1) 06/08/25 00:40 Plt Count 289 10^3/cmm (157-399) 06/08/25 00:40 MPV 12.4 fL (7.4-10.4) H 06/08/25 00:40 Neut % (Auto) 63.5 % 06/08/25 00:40 Lymph % (Auto) 24.7 % 06/08/25 00:40 [place] % (Auto) 7.6 % 06/08/25 00:40 Eos % (Auto) 3.3 % 06/08/25 00:40 Baso % (Auto) 0.2 % 06/08/25 00:40 Neut # (Auto) 10.46 10^3/uL (1.8-7.7) H 06/08/25 00:40 Lymph # (Auto) 4.1 10^3/uL (0.8-4.8) 06/08/25 00:40 [place] # (Auto) 1.3 10^3/uL (0.2-0.9) H 06/08/25 00:40 Eos # (Auto) 0.5 10^3/uL (0.0-0.8) 06/08/25 00:40 Baso # (Auto) 0.0 10^3/uL (0.0-0.1) 06/08/25 00:40 Nucleated RBC % (auto) 0 % 06/08/25 00:40 Nucleated RBCs # 0.0 /100WBC 06/08/25 00:40 Sodium 145 mmol/L (136-145) 06/08/25 00:40 Potassium 4.1 mmol/L (3.5-5.1) 06/08/25 00:40 Chloride 106 mmol/L (98-107) 06/08/25 00:40 Carbon Dioxide 24 mmol/L (22-29) 06/08/25 00:40 Anion Gap 19.1 (5-19) H 06/08/25 00:40 BUN 34 mg/dL (8-23) H 06/08/25 00:40 Creatinine 0.9 mg/dL (0.5-0.9) 06/08/25 00:40 GFR Calculation Not Reportable 06/08/25 00:40 Glucose 112 mg/dL (65-115) 06/08/25 00:40 Calculated Osmolality 308 mOsm/kg (285-295) H 06/08/25 00:40 Lactic Acid 1.0 mmol/L (0.5-2.2) 06/08/25 01:40 Calcium 8.9 mg/dL (8.5-10.5) 06/08/25 00:40 Magnesium 2.1 mg/dL (1.7-2.3) 06/08/25 00:40 Total Bilirubin 0.2 mg/dL (0.15-1.2) 06/08/25 00:40 AST 17 U/L (0-32) 06/08/25 00:40 ALT 23 U/L (0-33) 06/08/25 00:40 Alkaline Phosphatase 103 U/L (35-105) 06/08/25 00:40 Troponin T Baseline 53 ng/L (0-10) H 06/08/25 02:06 NT-Pro-B Natriuret Pep 294 pg/mL (0-450) 06/08/25 00:40 Total Protein 6.2 g/dL (6.6-8.7) L 06/08/25 00:40 Albumin 3.9 g/dL (3.5-5.2) 06/08/25 00:40 Globulin 2.3 g/dL (1.3-4.6) 06/08/25 00:40 TSH 6.80 uIU/mL (0.27-4.20) H 06/08/25 00:40 Urine Color Yellow (Yellow) 06/08/25 01:53 Urine Appearance Clear (CLEAR) 06/08/25 01:53 Urine pH 6.0 (5-7) 06/08/25 01:53 Ur Specific [place] 1.014 (1.005-1.030) 06/08/25 01:53 Urine Protein Negative (Negative) 06/08/25 01:53 Urine Glucose (UA) Negative (Normal) 06/08/25 01:53 Urine Ketones Negative (Negative) 06/08/25 01:53 Urine Blood Negative (Negative) 06/08/25 01:53 Urine Nitrate Negative (Negative) 06/08/25 01:53 Urine Bilirubin Negative (Negative) 06/08/25 01:53 Urine Urobilinogen 0.2 mg/dL (Negative) 06/08/25 01:53 Ur Leukocyte Esterase Negative (Negative) 06/08/25 01:53 Urine RBC 0-2 /hpf (0-2) 06/08/25 01:53 Urine WBC 6-10 /hpf (0-5) 06/08/25 01:53 Ur Squamous Epith Cells 0-5 /hpf (0-5) 06/08/25 01:53 Amorphous Sediment Not Reportable 06/08/25 01:53 Urine Bacteria None seen /hpf (NONE) 06/08/25 01:53 Hyaline Casts 0.81 /lpf 06/08/25 01:53 All radiology interpretation(s) finalized by discharge Discharge Plan Discharge Patient Disposition: Admitted As Inpatient Clinical Impression: Atrial fibrillation, new onset, Atrial fibrillation with rapid ventricular response, Dehydration, Chest pain, Elevated troponin level Condition: Stable Coding Level of Care Code ED Division Director for Sergio Graham
[2025-06-08 01:32] LABS: Hematocrit 41.9 % (36-47); Hemoglobin 14.00 g/dL (11.27-16.99); Mean Corpuscular HGB Conc 33.4 g/dL (30-55); Mean Corpuscular Hemoglobin 30.6 pg (27-33); Mean Corpuscular Volume 91.7 fl (85-98); Nucleated Red Blood Cells % 0 %; Platelet Count 289 10^3/cmm (157-399); Red Blood Count 4.57 10^6/uL (3.85-5.65); White Blood Count 16.49 10^3/uL (3.29-11.43)
[2025-06-08 02:03] LABS: Glucose Urine UA Negative (Normal); Nitrate Urine Negative (Negative); Specific Gravity, Urine 1.014 (1.005-1.030)
[2025-06-08 02:04] LABS: Lactic Sepsis W/Reflex 1.0 mmol/L (0.5-2.2)
[2025-06-08 02:14] LABS: Alanine Aminotransferase 23 U/L (0-33); Albumin Level 3.9 g/dL (3.5-5.2); Alkaline Phosphatase 103 U/L (35-105); Aspartate Amino Transferase 17 U/L (0-32); Blood Urea Nitrogen 34 mg/dL (8-23); Calcium 8.9 mg/dL (8.5-10.5); Carbon Dioxide 24 mmol/L (22-29); Chloride 106 mmol/L (98-107); Creatinine Clr Calc Pharmacy 51.7433; Globulin 2.3 g/dL (1.3-4.6); Glucose 112 mg/dL (65-115); Magnesium 2.1 mg/dL (1.7-2.3); NT Pro B Type Natriuretic Pept 294 pg/mL (0-450); Osmolality Calculated 308 mOsm/kg (285-295); Sodium 145 mmol/L (136-145); Thyroid Stimulating Hormone 6.80 uIU/mL (0.27-4.20); Total Protein 6.2 g/dL (6.6-8.7)
--- NOTE | 2025-06-08 02:14 | CTR_ITS ---
PROCEDURE INFORMATION: Exam: CT Chest Without Contrast; Diagnostic Exam date and time: 06/08/2025 2:29 AM Age: 79 years old Clinical indication: Abnormal findings; Abnormal radiologic exam of lung or chest; Prior surgery; Surgery date: 6+ months; Surgery type: Stent placement; Additional info: Abnormal chest x-ray, tachycardia, changed to without contrast due to patients allergies per Dr rausch TECHNIQUE: Imaging protocol: Diagnostic computed tomography of the chest without contrast. Radiation optimization: All CT scans at this facility use at least one of these dose optimization techniques: automated exposure control; mA and/or kV adjustment per patient size (includes targeted exams where dose is matched to clinical indication); or iterative reconstruction. COMPARISON: CT chest wo con [id number] 03/20/2023 2:07 PM RADIATION DOSE METRICS: Total DLP (mGy-cm): 556.41 FINDINGS: Lungs: Calcified granulomas are seen scattered throughout the lung, which can be seen setting prior granulomatous disease. Lingular atelectasis is noted. No confluent consolidation. No acute pulmonary process is identified. Pleural spaces: Unremarkable. No pneumothorax. No pleural effusion. Heart: The heart is enlarged. Mitral annular calcifications are seen. Coronary arteries: Moderate to severe three-vessel coronary atherosclerosis present. Lymph nodes: Unremarkable. No enlarged lymph nodes. Vasculature: Mild atherosclerotic changes of the thoracic aorta and its major branch vessels is noted. Liver: Scattered simple cysts are seen throughout the liver. Scattered subcentimeter hypoattenuating observations throughout the liver are too small to accurately characterize. In the absence of underlying hepatic parenchymal pathology/known malignancy, these findings are favored to represent a benign entity such as cysts or hemangiomas. Kidneys: Simple left renal cysts are present (Bosniak 1). No follow-up required. Bones/joints: Degenerative joint and disc disease is seen in the imaged spine. A chronic T10 compression fracture deformity is stable. Right humeral suture anchors are present. Soft tissues: Unremarkable. CT/CT chest wo con [id number] IMPRESSION: 1. No acute pulmonary process. 2. Cardiomegaly. 3. Moderate to severe three-vessel coronary atherosclerosis. COMMENTS: Consistent with the [place] [employer]'s Incidental Findings Committee white paper (J Am Vivienne Radiol 2018): Any incidental renal lesion less than 1 cm or classified as too small to characterize, or any incidental cystic renal lesion characterized as simple-appearing, is likely benign. No follow-up imaging is recommended for these lesions per consensus recommendations based on imaging criteria.
[2025-06-08 02:15] LABS: Anion Gap 19.1 (5-19); Potassium 4.1 mmol/L (3.5-5.1)
[2025-06-08 02:32] LABS: Troponin(5th) Baseline 53 ng/L (0-10)
[2025-06-08] MEDS: amiodarone 150 MG/100 ML PREMIX 400 MG IV (03:10)
[2025-06-08] MEDS: cefTRIAXone 1,000 mg SDV 1000 MG IVP (03:12)
[2025-06-08] MEDS: AMIODARONE HCL/D5W 900 MG/500 ML BAG 33.33 MG IV (03:27)
--- NOTE | 2025-06-08 04:24 | ECG_ITS ---
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 Measurements Intervals [place] Rate: 110 P: 0 PA: 0 QRS: -50 QRSD: 130 T: 0 QT: 348 QTc: 471 Interpretive Statements ATRIAL FIBRILLATION WITH RAPID VENTRICULAR RESPONSE RIGHT BUNDLE BRANCH BLOCK [120+ ms QRS DURATION, UPRIGHT V1, 40+ ms S IN I/aVL/V4/V5/V6] LEFT ANTERIOR FASCICULAR BLOCK [QRS AXIS <= -45, QR IN I, RS IN II] Compared to ECG 05/30/2025 18:20:23 Left anterior fascicular block now present Sinus rhythm no longer present Left-axis deviation no longer present Electronically Signed On 06-08-2025 13:56:13 CDT by Sabrina Mix M.D. [email or web address] [id number]
--- NOTE | 2025-06-08 04:28 | P.HP_ITS ---
Providers/Chief Complaint 2 Admitting Physician: Bashir Bucio MD Primary Care Provider: Brittany Ovalles Chief Complaint: cp History of Present Illness Clemencia Garrison is a 79 year old female with history of distal left circumflex stent 2022, untreated sleep apnea, moderate obesity, hypertension, hyperlipidemia, stroke he is chronically on baby aspirin plus Plavix. She comes in today with symptoms of chest pressure rating to left arm lasting an hour. She had intermittent palpitations. Patient states she had PA 2 years ago with a stent by Dr. Torrez. She has been on dual antiplatelet therapy with bruising and tendency to bleed. Patient tells me she has mitral valve disease and also tells me that her grandson states she snores heavily and checks on her because she thinks she she might of stop breathing. Patient denies treatment for sleep apnea. Dr. Castillo started her on treatment with diltiazem but patient had hypotensive. He switched to amiodarone drip and is giving some IV fluids. Dr. Castillo treated the patient for pneumonia with doxycycline few days ago patient comes in additional shortness of breath and chest x-ray and CT suggesting scant left lower lobe infiltrate patient was started on azithromycin and Rocephin in the emergency department Review of Systems 2 Narrative: General no fevers chills weight gain weight loss Cardiovascular positive for palpitations positive for chest pressure and scant pain Respiratory positive for shortness of breath and dyspnea on exertion just walking across the room she states this has been going on for a year even going to doctors offices recently but has never been diagnosed with atrial fibrillation GI no nausea vomiting she does have constipation typically but the last few days had diarrhea no dysuria 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 Neuro negative for seizures she did have a stroke seen on CT scan but she never noticed any symptoms Medications/Allergies Home Medications ?Medication ?Instructions ?Recorded ?Confirmed ?Last Taken ?Type losartan 100 mg tablet 100 mg PO BEDTIME 07/16/21 0 01/21/25 01/11/25 History cetirizine 10 mg tablet (Zyrtec) 10 mg PO DAILY PRN al lergies 01/09/24 01/21/25 Unknown History amlodipine 5 mg tablet 5 mg PO DAILY #90 tabs 06/2101/21/25 01/11/25 Rx atorvastatin 40 mg tablet 40 mg PO DAILY #90 tabs 05/2501/21/25 01/11/25 Rx clopidogrel 75 mg tablet 75 mg PO DAILY #90 tabs 05/2501/21/25 01/11/25 Rx isosorbide mononitrate 30 mg 30 mg PO DAILY #90 tabs 1 09/28/23 01/21/25 01/11/25 Rx tablet,extended release 24 hr metoprolol succinate 25 mg 12.5 mg (1/2 x 25 mg) PO .q hs #45 07/29/24 01/21/25 01/11/25 Rx tablet,extended release 24 hr tabs furosemide 40 mg tablet (Lasix) 40 mg PO DAILY #30 tab s 01/14/25 01/21/25 Unknown Rx Allergies Allergy/AdvReac Type Severity Reaction Status Date / Time Iodinated Contrast Media Allergy ALGY-Hives Verified 05/30/25 12:45 PFSH Acute 2 PFSH: Medical History (Updated 06/08/25 @ 03:05 by Saskia Castillo MD) Blepharospasm of left eye Fatigue Dizziness Aftercare following surgery of the genitourinary system Vulvar warts Thickened endometrium Cervical osteoarthritis B12 deficiency Dizziness of unknown etiology Essential hypertension Unstable angina NSTEMI (non-ST elevated myocardial infarction) Obesity Dyslipidemia History of stroke CAD (coronary artery disease) Surgical History (Updated 06/08/25 @ 04:46 by Bashir Bucio MD) Coronary artery disease status post coronary stent insertion Status post hysteroscopic polypectomy 08/29/2021- hysteroscopic polypectomy via Myosure, excision of left vulvar wart performed by Dr. Isaacs at [facility] History of tubal ligation 1979 History of cataract surgery Family History Father No problems noted. Mother No problems noted. Brother Diabetes Hypertension Colon cancer late 40's-early 50's Sister Colon cancer, Onset Age: 60 Denies family history of Ovarian cancer Clotting disorder Heart disease Hyperlipidemia Breast cancer Anesthesia complication Bleeding disorder Uterine cancer Thyroid disease Stroke Social History (Updated 06/08/25 @ 04:42 by Bashir Bucio MD) Smoking and tobacco/nicotine status: never used tobacco/nicotine Alcohol intake: current Alcohol intake frequency: 0-2 Drinks per Day Alcohol type: hard liquor Substance/Drug Use: never Additional social history: She lives in her own home with grandson age 23 living with her and son age 45 occasionally living with her she wants DNR status as discussed today on 06/08/2025 with Bashir Bucio MD She and her raised 4 kids and also foster children 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 Marital status: / Marital status details: around 2012 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 occupational history: 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 Vitals/I&O/Wt Last Vital Signs Temp 98.4 F 06/08/25 01:00 Pulse 100 06/08/25 02:15 Resp 25 H 06/08/25 02:15 BP 111/74 06/08/25 02:15 Pulse Ox 97 06/08/25 02:15 O2 Del Method Room Air 06/08/25 01:00 06/07/25 06/07/25 06/08/25 14:59 22:59 06:59 Intake Total 100 / 100 Balance 100 / 100 Weight last 48 hrs Weight 81.647 kg Physical Exam 2 Narrative: General well-developed well-nourished female in no acute cardiopulmonary stress Oropharynx Mallampati 2 EENT pupils equally round and reactive to light accommodation face is symmetric speech is clear CV tachycardic rate and irregular rhythm Lungs clear to auscultation bilaterally no rales or wheezes Abdomen positive bowel tones soft nontender Calves no tenderness cords pretibial edema Skin warm and dry Data 06/08/25 00:40 06/08/25 00:40 Micro: Microbiology 06/08/25 01:35 Blood Culture - Preliminary Blood SPECIMEN COLLECTED 06/08/25 01:35 Blood Culture - Preliminary Blood SPECIMEN COLLECTED A&P Assessment and plan 1. Atrial fibrillation with rapid ventricular response: Continue with amiodarone load start apixaban 2.5 mg twice a day. Patient states she has trouble with bruising and she is also on Plavix and aspirin. Will discontinue aspirin and continue Plavix 2. Coronary artery disease status post coronary stent insertion: History of stent 2 years ago currently on dual antiplatelet therapy. Will reduce risk of bleeding as we initiate apixaban at a lower dose and discontinue aspirin. Troponin elevated attributable to demand ischemia will trend troponins and if significantly elevated consult cardiology service for further stress testing or angiogram as deemed appropriate 3. Mitral valve regurgitation: Seen on last echo. Additionally patient has pulmonary hypertension moderate and I think this may be related to sleep apnea 4. Obesity: Will need to discuss with patient weight loss diet and I would recommend a 1500- calorie ADA diet 5. Obstructive sleep apnea: Patient has untreated sleep apnea likely precipitating the pulmonary hypertension. 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 PDMP PDMP Reviewed: Not Reviewed Attestations 2 Medical Necessity Statement*: Patient mid to the hospital with new onset atrial fibrillation pulmonary hypertension initiating amiodarone and anticoagulation will require greater than 2 midnights in hospital Coding Level of Care Code 46726 Diagnoses Atrial fibrillation with rapid ventricular response I48.91 Coronary artery disease status post coronary stent insertion I25.10; Z95.5 Mitral valve regurgitation I34.0 Obesity E66.9 Obstructive sleep apnea G47.33 Time Spent (min) 70
[2025-06-08 05:00] LABS: Free T4 Free Thyroxine 1.21 ng/dL (0.82-1.77)
[2025-06-08 05:52] LABS: Troponin 5 2HR 55.99 ng/L (0-10); Troponin 5 2HR Delta 2.99 ABS# (0-10)
--- NOTE | 2025-06-08 07:49 | ECG_ITS ---
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 Measurements Intervals [place] Rate: 108 P: 0 RI: 0 QRS: 260 QRSD: 135 T: 13 QT: 371 QTc: 497 Interpretive Statements ATRIAL FIBRILLATION WITH RAPID VENTRICULAR RESPONSE RIGHT AXIS DEVIATION [QRS AXIS > 100] RIGHT BUNDLE BRANCH BLOCK [120+ ms QRS DURATION, UPRIGHT V1, 40+ ms S IN I/aVL/V4/V5/V6] Compared to ECG 06/08/2025 04:24:31 Right-axis deviation now present Left anterior fascicular block no longer present Electronically Signed On 06-08-2025 13:55:56 CDT by Sabrina Mix M.D. [email or web address] [id number]
--- NOTE | 2025-06-08 08:38 | PC.PHAR ---
Pt has previous discharge paperwork from another hospital, in her medication bag. Amlodipine 5mg, Lasix 40mg, Pot. Chl. 20meq, and Isosorbide Mononitrate 3mg er-were all discontinued. Pt just finished Doxycycline 100mg cap bid x7days and Dexamethasone 6 mg daily x5days. She has the empty bottles in her room.
[2025-06-08 09:01] LABS: Troponin 5 6HR 62.14 ng/L (0-10); Troponin 5 6HR Delta 9.14 ng/L (0-12)
--- NOTE | 2025-06-08 11:29 | PC.NURSE ---
pt noted to be in sr on monitor at 0800 .at 1130 heart rate noted to be in 50's.dr mckeon notified.amioderone paused as ordered by doctor.
--- NOTE | 2025-06-08 15:12 | P.MISC_ITS ---
Miscellaneous Note Purpose of Documentation: Overnight labs and H&P reviewed. Patient's heart rate dropped to 42 with l owest. She is converted into sinus rhythm currently. At the time of this assessment her heart rate is between 65 to 70 bpm. Blood pressure remaining soft, systolic between 88-1 04/millimeter mercury. Discontinued IV amiodarone. Transition to oral amiodarone 200 mg twice daily. Closely monitor heart rate with this change. If blood pressure allows we will able to resume metoprolol. CT chest without any infiltrates. Will aim to discontinue ceftriaxone and azithromycin next 4 hours if infectious source evaluation remains negative. DC steroids. Suspect that her leukocytosis may impart be related to margination from steroids
[2025-06-09] VITALS: BP 164/63; PULSE 63; RESP 18; O2SAT 100
[2025-06-09 03:25] LABS: Hematocrit 36.5 % (36-47); Hemoglobin 11.90 g/dL (11.27-16.99); Mean Corpuscular HGB Conc 32.6 g/dL (30-55); Mean Corpuscular Hemoglobin 30.4 pg (27-33); Mean Corpuscular Volume 93.1 fl (85-98); Nucleated Red Blood Cells % 0 %; Platelet Count 231 10^3/cmm (157-399); Red Blood Count 3.92 10^6/uL (3.85-5.65); White Blood Count 12.02 10^3/uL (3.29-11.43)
[2025-06-09 03:50] LABS: Anion Gap 13.4 (5-19); Blood Urea Nitrogen 26 mg/dL (8-23); Calcium 8.6 mg/dL (8.5-10.5); Carbon Dioxide 22 mmol/L (22-29); Chloride 111 mmol/L (98-107); Creatinine Clr Calc Pharmacy 53.9899; Glucose 114 mg/dL (65-115); Osmolality Calculated 300 mOsm/kg (285-295); Potassium 4.4 mmol/L (3.5-5.1); Sodium 142 mmol/L (136-145)
[2025-06-09 03:53] LABS: Magnesium 2.1 mg/dL (1.7-2.3)
[2025-06-09] MEDS: cefTRIAXone 1,000 mg SDV 1000 MG IVP (03:58)
[2025-06-09 04:00] VITALS: BP 128/68; PULSE 61; RESP 15; TEMP 36.6; O2SAT 95
[2025-06-09 07:59] VITALS: BP 156/66; PULSE 63; RESP 17; TEMP 36.6; O2SAT 96
--- NOTE | 2025-06-09 09:37 | P.DS_ITS ---
Discharge Providers Date of Admission: 06/08/25 02:53 Date of Discharge: June 09, 2025 Attending Provider at Admission: Bashir Bucio MD Attending Provider at Discharge: Meenakshi Elam MD Primary Care Provider: Brittany Ovalles Diagnoses at Discharge Discharge Diagnosis 1. Atrial fibrillation with rapid ventricular response: 2. Coronary artery disease status post coronary stent insertion: 3. Mitral valve regurgitation: 4. Obesity: 5. Obstructive sleep apnea: Reason for Visit Reason for Visit: cp Hospital Course Hospital Course 79 year old female with history of distal left circumflex stent 2022, untreated sleep apnea, moderate obesity, hypertension, hyperlipidemia, stroke he is chronically on baby aspirin plus Plavix. She comes in today with symptoms of chest pressure rating to left arm. She had intermittent palpitations.She was found to be in A fib with RVR, she received treatment with Diltiazem in the ER which resulted in hypotension, therefore she needed to be started on Amiodarone infusion. This resulted in bradycardia with HR down to 42 at its lowest. Amiodarone was continued in the hospital at 200mg BID, but was discontinued at discharge as her Bp recovered and she edevloped bradycardia as noted above. . At this time , BP is ranging 150 systolic, therefore her home dose of metoprolol has been resumed. She was recently diagnosed with pneumonia in the Er and has just completed a course of dexamethasone and doxycycline. CT chest was perfromed in the hospital which was negtaive for any consolidation, therefore abx discontinued at discharge. Possible that recent PNA may have triggered the new a fib. Patient was started on a/c with Eliquis.,lower dose of 2.5 mg BID was chosen after risk benefit discussion with admitting hospitalist and patient's history of easy bruising. With starting Eliquis, ASA was discontinue. She will remain in Plavix + Eliquis going forward. her last stents were placed 2 years ago. Recommended to f/up with cardiology in 7-10 days after discharge . Physical Exam Narrative: General: No acute distress, AO x3 HEENT: PERRLA, pupils bilaterally equal and reactive, pallors not present Chest: Normal vesicular breath sounds, no added sounds, equal good air entry bilaterally CVS: S1-S2 regular, no murmurs, no tachycardia, no gallops, no rubs Abdomen: Soft, nontender, no organomegaly, bowel sounds present Neuro: No focal deficits, no facial deformity, AO x3, power 5/5 in all limbs Discharge Data Studies Completed and Pending Completed Studies During Hospitalization Category Date Time Status CT chest wo con [id number] Stat Cat Scan 06/08/25 02:14 Completed XR chest 1V portable [id number] Stat Exams 06/08/25 01:13 Completed Pending at discharge Category Date Time Status Blood Culture Stat Lab 06/08/25 01:35 Results Radiology Impressions Chest X-Ray 06/08/25 01:13 IMPRESSION: Findings which could be suggestive of minimal, basilar predominant, pulmonary vascular congestion or interstitial pneumonia. No pneumonic consolidation. Chest CT 06/08/25 02:14 IMPRESSION: 1. No acute pulmonary process. 2. Cardiomegaly. 3. Moderate to severe three-vessel coronary atherosclerosis. COMMENTS: Consistent with the [employer]'s Incidental Findings Committee white paper (J Am Vivienne Radiol 2018): Any incidental renal lesion less than 1 cm or classified as too small to characterize, or any incidental cystic renal lesion characterized as simple-appearing, is likely benign. No follow-up imaging is recommended for these lesions per consensus recommendations based on imaging criteria. Laboratory Results WBC 12.02 10^3/uL (3.29-11.43) H 06/09/25 03:18 RBC 3.92 10^6/uL (3.85-5.65) 06/09/25 03:18 Hgb 11.90 g/dL (11.27-16.99) 06/09/25 03:18 Hct 36.5 % (36-47) 06/09/25 03:18 MCV 93.1 fl (85-98) 06/09/25 03:18 MCH 30.4 pg (27-33) 06/09/25 03:18 MCHC 32.6 g/dL (30-55) 06/09/25 03:18 RDW 14.7 % (12.1-15.1) 06/09/25 03:18 Plt Count 231 10^3/cmm (157-399) 06/09/25 03:18 MPV 11.5 fL (7.4-10.4) H 06/09/25 03:18 Neut % (Auto) 68.2 % 06/09/25 03:18 Lymph % (Auto) 18.4 % 06/09/25 03:18 [place] % (Auto) 8.6 % 06/09/25 03:18 Eos % (Auto) 3.8 % 06/09/25 03:18 Baso % (Auto) 0.5 % 06/09/25 03:18 Neut # (Auto) 8.20 10^3/uL (1.8-7.7) H 06/09/25 03:18 Lymph # (Auto) 2.2 10^3/uL (0.8-4.8) 06/09/25 03:18 [place] # (Auto) 1.0 10^3/uL (0.2-0.9) H 06/09/25 03:18 Eos # (Auto) 0.5 10^3/uL (0.0-0.8) 06/09/25 03:18 Baso # (Auto) 0.1 10^3/uL (0.0-0.1) 06/09/25 03:18 Nucleated RBC % (auto) 0 % 06/09/25 03:18 Nucleated RBCs # 0.0 /100WBC 06/09/25 03:18 Sodium 142 mmol/L (136-145) 06/09/25 03:18 Potassium 4.4 mmol/L (3.5-5.1) 06/09/25 03:18 Chloride 111 mmol/L (98-107) H 06/09/25 03:18 Carbon Dioxide 22 mmol/L (22-29) 06/09/25 03:18 Anion Gap 13.4 (5-19) 06/09/25 03:18 BUN 26 mg/dL (8-23) H 06/09/25 03:18 Creatinine 0.9 mg/dL (0.5-0.9) 06/09/25 03:18 GFR Calculation Not Reportable 06/09/25 03:18 Glucose 114 mg/dL (65-115) 06/09/25 03:18 Calculated Osmolality 300 mOsm/kg (285-295) H 06/09/25 03:18 Lactic Acid 1.0 mmol/L (0.5-2.2) 06/08/25 01:40 Calcium 8.6 mg/dL (8.5-10.5) 06/09/25 03:18 Magnesium 2.1 mg/dL (1.7-2.3) 06/09/25 03:18 Total Bilirubin 0.2 mg/dL (0.15-1.2) 06/08/25 00:40 AST 17 U/L (0-32) 06/08/25 00:40 ALT 23 U/L (0-33) 06/08/25 00:40 Alkaline Phosphatase 103 U/L (35-105) 06/08/25 00:40 Troponin T Baseline 53 ng/L (0-10) H 06/08/25 02:06 Troponin T 120 Minute 55.99 ng/L (0-10) H 06/08/25 05:16 Delta Troponin T 2.99 ABS# (0-10) 06/08/25 05:16 Troponin T Hi Sens 6Hr 62.14 ng/L (0-10) H 06/08/25 08:19 Troponin T Hi Sens 6Hr Delta 9.14 ng/L (0-12) 06/08/25 08:19 NT-Pro-B Natriuret Pep 294 pg/mL (0-450) 06/08/25 00:40 Total Protein 6.2 g/dL (6.6-8.7) L 06/08/25 00:40 Albumin 3.9 g/dL (3.5-5.2) 06/08/25 00:40 Globulin 2.3 g/dL (1.3-4.6) 06/08/25 00:40 TSH 6.80 uIU/mL (0.27-4.20) H 06/08/25 00:40 Free T4 1.21 ng/dL (0.82-1.77) 06/08/25 00:40 Urine Color Yellow (Yellow) 06/08/25 01:53 Urine Appearance Clear (CLEAR) 06/08/25 01:53 Urine pH 6.0 (5-7) 06/08/25 01:53 Ur Specific [place] 1.014 (1.005-1.030) 06/08/25 01:53 Urine Protein Negative (Negative) 06/08/25 01:53 Urine Glucose (UA) Negative (Normal) 06/08/25 01:53 Urine Ketones Negative (Negative) 06/08/25 01:53 Urine Blood Negative (Negative) 06/08/25 01:53 Urine Nitrate Negative (Negative) 06/08/25 01:53 Urine Bilirubin Negative (Negative) 06/08/25 01:53 Urine Urobilinogen 0.2 mg/dL (Negative) 06/08/25 01:53 Ur Leukocyte Esterase Negative (Negative) 06/08/25 01:53 Urine RBC 0-2 /hpf (0-2) 06/08/25 01:53 Urine WBC 6-10 /hpf (0-5) 06/08/25 01:53 Ur Squamous Epith Cells 0-5 /hpf (0-5) 06/08/25 01:53 Amorphous Sediment Not Reportable 06/08/25 01:53 Urine Bacteria None seen /hpf (NONE) 06/08/25 01:53 Hyaline Casts 0.81 /lpf 06/08/25 01:53 Vitals Last Vital Signs Temp 97.9 F 06/09/25 07:59 Pulse 63 06/09/25 07:59 Resp 17 06/09/25 07:59 BP 156/66 06/09/25 07:59 Pulse Ox 96 06/09/25 07:59 O2 Del Method Room Air 06/09/25 04:00 Discharge Plan Discharge Patient Disposition: Home Condition: Stable Prescriptions: New Eliquis 5 mg Tablet 2.5 mg PO BID@0900,2100 30 Days Qty: 60 1RF Continued clopidogrel 75 mg tablet 75 mg PO DAILY Qty: 90 3RF atorvastatin 40 mg tablet 40 mg PO DAILY Qty: 90 3RF losartan 50 mg tablet 50 mg PO BEDTIME Changed metoprolol succinate 25 mg tablet extended release 24 hr 25 mg PO BEDTIME 30 Days Qty: 30 0RF Discontinued aspirin 81 mg tablet,delayed release (DR/EC) 81 mg PO DAILY Discharge Order = DC NOW: Discharge Order (Routine); Ordered 06/09/25 Ordered By: Meenakshi Elam Referrals: Libby Melara FNP [Nurse Practitioner, Cardiology] - 1 week Referral Note: This appointment is scheduled with Dr. Vicente. Brittany Ovalles PA [Primary Care Provider, Physicians Extrusion Utility Worker] - 06/14/25 11:00 am León Vicente MD [Physician, Cardiology] - 07/05/25 3:00 pm Discharge Diet: Cardiac Discharge Activity: Resume usual activity Patient Instructions: Apixaban (By mouth) (Eliquis), Coronary Artery Disease (DC), A-fib (Atrial Fibrillation) (DC), Chest Pain Stoplight, Opioid Safety, Patient Portal & Jocy Instructions Discharge Attestations Time Spent in Discharge Care*: greater than 30 min Status at Discharge: Cognitive status at discharge: cognitively intact , Behavioral status at discharge: cooperative , Quality Metrics Clinical Quality Measures [ No reported AMI, CVA or VTE this stay] Coding Level of Care Code Acute Code for Chg Fwd Diagnoses Atrial fibrillation with rapid ventricular response I48.91 Coronary artery disease status post coronary stent insertion I25.10; Z95.5 Mitral valve regurgitation I34.0 Obesity E66.9 Obstructive sleep apnea G47.33
--- NOTE | 2025-06-09 11:27 | PC.NURSE ---
patient discharged to home. instruction provided regarding follow up appointments, new medication with changes and patient portal. Both son and patient verbalized complete understanding. IVs and telemetry removed prior to discharge. Patient up ambulating in room and dressed self. Patient taken by wheelchair to private vehicle. Patient denies pain or needs. No distress observed.
--- OUTSIDE RECORDS SUMMARY | 2025-06-13 11:00 | XMS_ITS | Clinical Summary ---
Author Organization [employer] Address [address] [facility] Attn: Epic Prelude ADT ABBY MILLER [phone] Care Team Providers Care Seed Technician Name Role Phone Thomas Beltre DO Primary [...] on file Legal Sex Female 12:47 PM BAT BOY/GIRL Gender Identity Not on file Sexual Orientation Not on file Last Filed Vital Signs Vital Sign Reading Time Taken Comments Blood Pressure 114/76 09/07/2016 1:27 PM BAT BOY/GIRL Pulse - - Temperature 37.1 C (98.7 F) 09/07/2016 1:27 PM BAT BOY/GIRL Respiratory Rate 14 09/07/2016 1:27 PM BAT BOY/GIRL Oxygen Saturation - - Inhaled Oxygen Concentration - - Weight 78.2 kg (172 lb 8 oz) 09/07/2016 11:20 AM BAT BOY/GIRL Height 165.1 cm (5' 5 ) 09/07/2016 11:20 AM BAT BOY/GIRL Body Mass Index 28.71 09/07/2016 11:20 AM BAT BOY/GIRL Plan of Treatment Health Maintenance Due Date Last Done Comments DTAP/TDAP/TD VACCINES (1 - Tdap) 12/29/1962 PNEUMOCOCCAL VACCINE 50+ YEARS (1 of 1 - PCV) 12/29/18 94 ZOSTER VACCINE (1 of 2) 12/29/1993 OSTEOPOROSIS SCREENING 12/29/2008 RSV VACCINE (60+ or ) (1 - 1-dose 75+ series) 12/29/2018 INFLUENZA VACCINE (#1) 2025 Care Teams Seed Technician Relationship Specialty Start Date End Date Thomas Beltre DO [address] [address] PCP - General Family Practice 09/07/16
--- OUTSIDE RECORDS SUMMARY | 2025-06-13 11:00 | XMS_ITS | Clinical Summary ---
[facility] Address [address] [address] Phone Care Team Providers Care Scrap Metal Collector Name Role Phone Thomas Beltre DO Primary [...] on file Legal Sex Female 11:13 AM CYBER SECURITY CONSULTANT Gender Identity Not on file Sexual Orientation Not on file Last Filed Vital Signs Vital Sign Reading Time Taken Comments Blood Pressure 114/76 09/07/2016 1:27 PM CYBER SECURITY CONSULTANT Pulse - - Temperature 37.1 C (98.7 F) 09/07/2016 1:27 PM CYBER SECURITY CONSULTANT Respiratory Rate 14 09/07/2016 1:27 PM CYBER SECURITY CONSULTANT Oxygen Saturation 97% 09/07/2016 1:27 PM CYBER SECURITY CONSULTANT Inhaled Oxygen Concentration - - Weight 78.2 kg (172 lb 8 oz) 09/07/2016 11:20 AM CYBER SECURITY CONSULTANT Height 165.1 cm (5' 5 ) 09/07/2016 11:20 AM CYBER SECURITY CONSULTANT Body Mass Index 28.71 09/07/2016 11:20 AM CYBER SECURITY CONSULTANT Plan of Treatment Health Maintenance Due Date Last Done Comments DTAP/TDAP/TD VACCINES (1 - Tdap) 12/29/1962 PNEUMOCOCCAL VACCINE 50+ YEARS (1 of 1 - PCV) 12/29/18 94 ZOSTER VACCINE (1 of 2) 12/29/1993 OSTEOPOROSIS SCREENING 12/29/2008 RSV VACCINE (60+ or ) (1 - 1-dose 75+ series) 12/29/2018 INFLUENZA VACCINE (#1) 2025 Insurance [address] [place] [id number] [employer] [facility] [employer] [id number] HMO Care Teams Scrap Metal Collector Relationship Specialty Start Date End Date Thomas Beltre DO [address] [place] [address] [place] [address] PCP - General Family Practice 09/07/16
== END 2025-06-09 10:43 | disposition home or self-care (01) ==
LOC: ER 02:55 → CSU 04:41
PROVIDERS: Admitting Provider Internal Medicine; Emergency Provider Emergency Medicine; PCP Physician Assistant; Visit Provider Student in an Organized Health Care Education/Training Program
DX: I48.91 Unspecified atrial fibrillation (principal); I25.118 Atherosclerotic heart disease of native coronary artery with other forms of angina pectoris; Z95.5 Presence of coronary angioplasty implant and graft; I34.0 Nonrheumatic mitral (valve) insufficiency; G47.33 Obstructive sleep apnea (adult) (pediatric); E66.9 Obesity, unspecified; Z68.33 Body mass index [BMI] 33.0-33.9, adult; Z79.82 Long term (current) use of aspirin; I10 Essential (primary) hypertension; E78.5 Hyperlipidemia, unspecified; I25.2 Old myocardial infarction; Z86.73 Personal history of transient ischemic attack (TIA), and cerebral infarction without residual deficits
CPT/HCPCS: 36415; 71045; 71250; 80048; 80053; 81001; 83605; 83735; 83880; 84439; 84443; 84484; 85025; 87040; 93005; 96365; 96366; 96367; 96375; 99291; A4222; G0378; J0282; J0283; J0456; J0696; J7030; J7050; J9999; Q0144

== ENCOUNTER → 2025-07-05 15:08 | Outpatient (BNVA) | payer OTHER, MEDICAID, SELFPAY | PROVIDERS: PCP Physician Assistant; Visit Provider Internal Medicine Cardiovascular Disease | DX: I25.10 Atherosclerotic heart disease of native coronary artery without angina pectoris (principal); R07.9 Chest pain, unspecified; I48.20 Chronic atrial fibrillation, unspecified; Z79.01 Long term (current) use of anticoagulants; R01.1 Cardiac murmur, unspecified; G47.33 Obstructive sleep apnea (adult) (pediatric); I11.0 Hypertensive heart disease with heart failure; I50.32 Chronic diastolic (congestive) heart failure; Z95.5 Presence of coronary angioplasty implant and graft; Z86.73 Personal history of transient ischemic attack (TIA), and cerebral infarction without residual deficits; I25.2 Old myocardial infarction; R06.02 Shortness of breath | CPT/HCPCS: 93005; 99214 ==

== ENCOUNTER → 2025-09-06 09:25 | Outpatient (BNVA) | payer OTHER, MEDICAID, SELFPAY | PROVIDERS: PCP Physician Assistant; Visit Provider Nurse Practitioner Family | DX: I25.110 Atherosclerotic heart disease of native coronary artery with unstable angina pectoris (principal); I48.91 Unspecified atrial fibrillation; I10 Essential (primary) hypertension; Z95.5 Presence of coronary angioplasty implant and graft; R42 Dizziness and giddiness; H53.9 Unspecified visual disturbance; Z79.01 Long term (current) use of anticoagulants | CPT/HCPCS: 99214 ==